=== PATIENT | male | born 1975 | race Caucasian/White ===

== ENCOUNTER 2017-03-25 18:17 | Inpatient (IN) | payer OTHER ==
[~2017-03-25] VITALS: Ht 182.9 cm; Wt 93.3 kg
[2017-03-25 22:24] VITALS: BP 130/72; RESP 16
[2017-03-26] VITALS (9 sets, daily range): BP systolic 99–114; BP diastolic 52–66; PULSE 80–151; RESP 16–20
[2017-03-26] MEDS ORDERED: LORAZEPAM 2 MG INJ IV PRN
[2017-03-26] MEDS ORDERED: ONDANSETRON 4 MG INJ IV PRN
[2017-03-26] MEDS ORDERED: morphine 2 MG INJ ONE (01:23)
[2017-03-26] MEDS: morphine 2 MG INJ IV PRN ×3 (01:30→11:00)
--- NOTE | 2017-03-26 04:30 | HP ---
DATE OF ADMISSION: 03/25/2017 TIME: 11:37 p.m. CHIEF COMPLAINT: Blood in his stool. HISTORY OF PRESENT ILLNESS: Jose is a 41-year-old male, who went to the emergency room at [facility] because of blood in his stool of 3 days' duration. He tells me that he has had this problem on and off for the past 3 years. He has had a colonoscopy before and he has had a complete workup that showed gastric and several small bowel ulcers. He did not use those terms, but from his description it sounds like that is what it is. He says that the last time he had a colonoscopy and then he needed to have an upper endoscopy. He does have a history of heavy alcohol, tobacco, cocaine and methamphetamine use. These episodes started 3 days ago with melanotic stools. As patient has had this before, he tried to treat himself with over-the- counter PPI therapy, but by yesterday he went to the bathroom and was having grossly bloody, watery stools. He states he had about 7 episodes and on the last episode he felt so weak and dizzy he fell off the toilet seat. He actually said, however, that he did not hit his head or lose consciousness. After that, he told his family to take him to the emergency room. He was taken to the emergency room at [facility] where he was stabilized and then transferred to us for further management for insurance reasons. Please note, that patient refused rectal exam but has photos of his bloody stools that show significant rectal bleeding. He has also had right upper quadrant pain and he has had this on and off for many years, which he describes as sharp. He states that is was while this pain was being worked up that he was told that he had a swollen liver. PAST MEDICAL HISTORY: The patient does not take any medications daily, but he has been told in the past that he has hypertension and dyslipidemia but by his report he was not started on any medications. He has also been told in the past that he has a swollen liver and that he needs to quit drinking alcohol. If not, he will develop liver cirrhosis, but he has never been diagnosed with liver cirrhosis. SURGICAL HISTORY: He denies. ALLERGIES: NO KNOWN DRUG ALLERGIES. SOCIAL HISTORY: Patient smokes tobacco and methamphetamine. He snorts cocaine and he drinks a lot of alcohol. FAMILY HISTORY: Noncontributory. REVIEW OF SYSTEMS: Pertinent findings as noted in HPI in a 12- point review of systems. PHYSICAL EXAMINATION: VITAL SIGNS: Temperature 98.0, pulse is 89, respirations 16, blood pressure 132/67, saturations 97 percent on room air GENERAL: Patient is alert, he is oriented. He is in no distress. He is afebrile to touch. HEENT: Head is normocephalic with equal, round, reactive pupils. Mucous membranes are moist. Posterior pharynx is clear of erythema and exudates. There is no scleral jaundice. There is no conjunctival pallor. NECK: Supple without adenopathy or JVD. CHEST: Clear to auscultation with good air entry on both sides. CARDIOVASCULAR: Heart sounds S1 and S2, without added sounds or murmurs. ABDOMEN: He does not have any gross abdominal tenderness on palpation, but intermittently during physical exam, he would develop a niggling ache in his right upper quadrant. Otherwise, his abdomen soft, nondistended, nontender with normoactive bowel sounds. EXTREMITIES: Lower extremities negative for edema. There is no joint swelling or deformity. PSYCHIATRIC: He was calm, cooperative with exam. SKIN: Notable only for multiple tattoos. NEUROLOGIC: He had no focal deficits. No gross focal deficits. LAB VALUES: I reviewed all the imaging, paperwork and lab work sent from [facility] and pertinent findings are as follows: 1. A urine toxicology screen positive for cocaine, methamphetamine and opiates. 2. Unremarkable urinalysis. 3. EKG showing normal sinus rhythm with short SC, with a rate of 98 beats per minute. ASSESSMENT: A 41-year-old male, who presents with 3-day history of melanotic stools that developed into bright red blood per rectum and for the followin. Acute gastrointestinal bleed (recurrent). 2. History of gastrointestinal ulcers. 3. Chronic right upper quadrant pain. Rule out liver pathology. 4. Multiple substance abuse. PLAN: The patient will be admitted to telemetry floor and for stabilization he was started on IV fluid therapy, IV PPI therapy and will undergo serial lab work. The patient does not have a history of varices as far as he knows. We will get a right upper quadrant ultrasound to evaluate his liver and pancreas, and we will also provide supportive care with pain control, and antiemetics as needed. The patient has been counseled on the need to quit substance abuse and it sounds like he is already working on it, we will have the family welfare social work professor visit and provide additional resources if necessary. We will also continue to reinforce the need for cessation while in-house. The patient will be also be seen by GI tomorrow and it sounds like he would benefit from endoscopy. We will defer to GI for timing. This plan has been discussed with patient and his family in detail. Questions have been answered. Prophylaxis: PPI therapy, as well as SCDs. Dictated By: Lizzy Wilhelm MD /danielle/graciela /Document#: [id number]
[2017-03-26] MEDS ORDERED: PANTOPRAZOLE 40 MG INJ ONE (06:37)
[2017-03-26 08:03] LABS: BASOPHILS % 0.4 % (0.0-2.0); EOSINOPHILS # 0.1 10^3/ul (0.0-0.5); EOSINOPHILS % 1.7 % (0.0-7.0); HEMATOCRIT 25.4 % (42.0-52.0); HEMOGLOBIN 8.8 g/dl (14.0-18.0); LYMPHOCYTES # 2.3 10^3/ul (0.8-2.9); LYMPHOCYTES % 33.3 % (15.0-51.0); MEAN CORPUSCULAR HEMOGLOBIN 33.7 pg (29.0-33.0); MEAN CORPUSCULAR HGB CONC 34.6 g/dl (32.0-37.0); MEAN CORPUSCULAR VOLUME 97.3 fl (82.0-101.0); MONOCYTE # 0.7 10^3/ul (0.3-0.9); MONOCYTES % 9.5 % (0.0-11.0); NEUTROPHILS % 54.8 % (39.0-77.0); PLATELET COUNT 250 10^3/UL (140-415); RED BLOOD COUNT 2.61 10^6/ul (4.70-6.10); RED CELL DISTRIBUTION WIDTH 13.1 % (11.5-14.5)
[2017-03-26 08:21] LABS: INR 0.99; PARTIAL THROMBOPLASTIN TIME 26.3 Sec (25.0-35.0); PROTIME 13.1 Sec (12.2-14.2)
--- NOTE | 2017-03-26 08:21 | RADRPT ---
PROCEDURE: US Abdomen (right upper quadrant). CLINICAL INDICATION: Right upper quadrant abdomen pain. TECHNIQUE: Multiple real-time longitudinal and transverse images of the right upper quadrant of th e abdomen were acquired utilizing a curved array transducer. Images were reviewed on a high-resoluti on PACS workstation. COMPARISON: None FINDINGS: This is a limited study as the patient is not n.p.o. and the patient was unable to fully cooperate. The liver is normal in size and normal in echogenicity. There is no focal hepatic lesion. The gallbladder is contracted. The bile ducts are normal with the common bile duct measuring 3.0 mm in diameter. The pancreas is not visualized due to overlying bowel gas. No free fluid is present. The right kidney measures 9.7 cm. There is normal echogenicity of the right kidney. There is no p erinephric fluid collection. No hydronephrosis, mass, or calculus is seen. IMPRESSION: 1. Limited study. 2. Contracted gallbladder. 3. Pancreas not visualized. 4. Otherwise unremarkable right upper quadrant abdomen ultrasound. RPTAT: QQ .Evangelista Pereira MD, MD Date Time Electronically viewed and signed by .Evangelista Pereira MD, on 03/26/2017 08:21 .R/
[2017-03-26 08:26] LABS: ALBUMIN 2.6 g/dl (3.3-4.9); ALBUMIN/GLOBULIN RATIO 1.13; CALCIUM 8.3 mg/dl (8.4-10.2); CREATININE 0.89 mg/dl (0.61-1.24); MAGNESIUM 1.9 mg/dl (1.7-2.5); POTASSIUM 4.4 mmol/L (3.5-5.1); TOTAL PROTEIN 4.9 g/dl (6.1-8.1)
[2017-03-26] MEDS: DOCUSATE SODIUM 100 MG CAP PO SCH ×2 (10:58→21:00)
[2017-03-26] MEDS: SOD CHLORIDE 0.9% 1,000 ML IV SCH ×2 (10:59→21:12)
[2017-03-26] MEDS: MULTIVITAMINS 10 ML, THIAMINE 100 MG, FOLIC ACID 1 MG in SOD CHLORIDE 0.9% 1,000 ML IV SCH (12:00)
[2017-03-26] MEDS ORDERED: PANTOPRAZOLE (EC) 40 MG TAB PO ONE (14:00)
--- NOTE | 2017-03-26 14:04 | PN ---
Date/Time of Note Date/Time of Note DATE: 03/26/17 TIME: 14:01 Assessment/Plan VTE Prophylaxis VTE Prophylaxis Intervention: anti-embolic stocking Assessment/Plan Problems: (1) GI bleed Status: Acute Comment: The patient denies any known history of Crohn's disease or ulcerative colitis. His last scoping was performed at [facility] however he has no idea who the physician was. GI consult is ordered. We will follow his H&H. 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 His addiction is going to actually be a terminal illness (3) Chemical dependency Status: Chronic Comment: As above his addiction issues are very likely to be a terminal illness Subjective 24 Hr Interval Summary Free Text/Dictation Patient reports that he is feeling okay. He reports he is consuming 12-18 units of alcohol per day. His last cocktail was at 2 AM this morning Constitutional: no complaints Respiratory: no complaints Cardiovascular: no complaints Gastrointestinal: blood Exam/Review of Systems Vital Signs Vitals Vital Signs Date Time Temp Pulse Resp B/P Pulse Ox O2 Delivery O2 Flow Rate FiO2 03/26/17 12:00 80 03/26/17 12:00 98.0 18 108/53 98 Intake and Output 03/25/17 03/25/17 03/26/17 15:00 23:00 07:00 Intake Total 600 ml Balance 600 ml Exam Constitutional: alert, oriented Respiratory: clear to auscultation, normal air movement Cardiovascular: nl pulses, regular rate and rhythm Results Result Diagram: 03/26/17 0633 03/26/17 0633 Results 24 hrs Laboratory Tests Test 03/26/17 04:00 03/26/17 06:33 Stool Occult Blood POSITIVE White Blood Count 7.0 Red Blood Count 2.61 L Hemoglobin 8.8 L Hematocrit 25.4 L Mean Corpuscular Volume 97.3 Mean Corpuscular Hemoglobin 33.7 H Mean Corpuscular Hemoglobin Concent 34.6 Red Cell Distribution Width 13.1 Platelet Count 250 Mean Platelet Volume 10.0 Neutrophils % 54.8 Lymphocytes % 33.3 Monocytes % 9.5 Eosinophils % 1.7 Basophils % 0.4 Nucleated Red Blood Cells % 0.0 Neutrophils # (Manual) 3.8 Lymphocytes # 2.3 Monocytes # 0.7 Eosinophils # 0.1 Basophils # 0.0 Nucleated Red Blood Cells # 0.0 Prothrombin Time 13.1 Prothrombin Time Ratio 1.0 INR International Normalized Ratio 0.99 Activated Partial Thromboplast Time 26.3 Sodium Level 137 Potassium Level 4.4 Chloride Level 103 Carbon Dioxide Level 27 Anion Gap 11 Blood Urea Nitrogen 27 H Creatinine 0.89 Glucose Level 91 Calcium Level 8.3 L Phosphorus Level 4.0 Magnesium Level 1.9 Total Bilirubin 0.0 L Direct Bilirubin 0.00 Indirect Bilirubin 0.0 Aspartate Amino Transf (AST/SGOT) 40 Alanine Aminotransferase (ALT/SGPT) 31 Alkaline Phosphatase 56 Total Protein 4.9 L Albumin 2.6 L Globulin 2.30 Albumin/Globulin Ratio 1.13 Medications Medications Current Medications Morphine Sulfate (morphine) 2 mg Q4H PRN IV PAIN Last administered on 01:30; Admin Dose 2 MG; Start 03/25/17 at 23:30 Docusate Sodium 100 mg 100 mg BID PO Last administered on 03/26/17 10:58; Admin Dose 100 MG; Start 03/26/17 at 10:30 Multivitamins 10 ml/Thiamine HCl 100 mg/Folic Acid 1 mg/Sodium Chloride 1,011.2 ml @ 125 mls/ hr Q24H IV ; Start 03/26/17 at 12:00; Stop 03/28/17 at 20:06 Sodium Chloride (NS) 1,000 ml @ 100 mls/hr Q10H IV Last administered on 10:59; Admin Dose 100 MLS/HR; Start 03/26/17 at 11:00 Lorazepam (Ativan) 1 mg Q8H PRN IV AGITATION; Start 03/26/17 at 00:00 Ondansetron HCl (Zofran Inj) 4 mg Q6H PRN IV NAUSEA AND/OR VOMITING; Start at 00:00 CELSO KENDALL MD Mar 26, 2017 14:04
--- NOTE | 2017-03-26 17:21 | CONS ---
Date/Time of Note Date/Time of Note DATE: 03/26/17 TIME: 17:09 Assessment/Plan Assessment/Plan Additional Assessment/Plan Assessment * Hematochezia/anemia R/O lower GI bleed vs upper GI bleed T/O diverticulosis vs av malformation vs others * Alcoholism Plan * Monitor hemoglobin and hematocrit daily and transfuse per protocol * PPI * Possible colonoscopy and EGD tuesday will discuss with patient tomorrow per girlfriend * Soft diet * Omeprazole 40 mg BID * case discussed with DR Pro * Further orders will depend on clinical course Consultation Date/Type/Reason Admit Date/Time Mar 25, 2017 at 21:58 Date of Consultation: Mar 26, 2017 Type of Consultation: gastroenterology Reason for Consultation lower gi bleed Referring Provider: CELSO KENDALL MD Hx of Present Illness 41 jewel old male who was transferred to our institution from [facility] complaining of lower GI bleed.Present condition apparently started 3 day prior to transfer as hematocheizia on and off minimal in amount gradually having large amount of hematochezia and body weakness prompted consult and subsequent transfer to [facility] because of insurance issues.The girlfriend also claimed that he had endoscopy and colonoscopy last year at [facility] where he was giagnosed with gastri ilcers.Patient is also a heavy alcoholic drinker per girlfriend.Patient is asleep and comfortable Constitutional: no complaints Eyes: no complaints ENT: no complaints Respiratory: no complaints Cardiovascular: no complaints Gastrointestinal: blood Genitourinary: no complaints Musculoskeletal: no complaints Skin: no complaints Neurologic: no complaints Endocrine: no complaints Lymphatic: no complaints Psychological: nl mood/affect, no complaints Immunologic: no complaints Past Medical History Medical History: other (gastric ulcers) Past Surgical History Past Surgical Hx: endoscopy Family History Significant Family History: no pertinent family hx Social History Alcohol Use: heavy Exam/Review of Systems Vital Signs Vitals Vital Signs Date Time Temp Pulse Resp B/P Pulse Ox O2 Delivery O2 Flow Rate FiO2 03/26/17 16:00 100 03/26/17 15:45 99.0 17 99/60 93 Intake and Output 03/25/17 03/25/17 03/26/17 15:00 23:00 07:00 Intake Total 600 ml Balance 600 ml Exam Constitutional: alert, oriented, well developed Psych: nl mood/affect, no complaints Head: atraumatic, normocephalic Eyes: EOMI, PERRL, nl conjunctiva, nl lids, nl sclera ENMT: nl external ears & nose, nl lips & teeth, nl nasal mucosa & septum Neck: non-tender, supple Respiratory: clear to auscultation, normal air movement Cardiovascular: nl pulses, regular rate and rhythm Gastrointestinal: nl liver, spleen, non-tender, soft Musculoskeletal: nl extremities to inspection, nl gait and stance Extremities: normal pulses Neurological: MMD [employer] II-XII intact, nl mental status, nl speech, nl strength Skin: nl turgor, No rash or lesions Lymph: nl lymph nodes Results Result Diagram: 03/26/1763203/26/17 06 Results 24 hrs Laboratory Tests Test 03/26/17 04:00 03/26/17 06:33 Stool Occult Blood POSITIVE White Blood Count 7.0 Red Blood Count 2.61 L Hemoglobin 8.8 L Hematocrit 25.4 L Mean Corpuscular Volume 97.3 Mean Corpuscular Hemoglobin 33.7 H Mean Corpuscular Hemoglobin Concent 34.6 Red Cell Distribution Width 13.1 Platelet Count 250 Mean Platelet Volume 10.0 Neutrophils % 54.8 Lymphocytes % 33.3 Monocytes % 9.5 Eosinophils % 1.7 Basophils % 0.4 Nucleated Red Blood Cells % 0.0 Neutrophils # (Manual) 3.8 Lymphocytes # 2.3 Monocytes # 0.7 Eosinophils # 0.1 Basophils # 0.0 Nucleated Red Blood Cells # 0.0 Prothrombin Time 13.1 Prothrombin Time Ratio 1.0 INR International Normalized Ratio 0.99 Activated Partial Thromboplast Time 26.3 Sodium Level 137 Potassium Level 4.4 Chloride Level 103 Carbon Dioxide Level 27 Anion Gap 11 Blood Urea Nitrogen 27 H Creatinine 0.89 Glucose Level 91 Calcium Level 8.3 L Phosphorus Level 4.0 Magnesium Level 1.9 Total Bilirubin 0.0 L Direct Bilirubin 0.00 Indirect Bilirubin 0.0 Aspartate Amino Transf (AST/SGOT) 40 Alanine Aminotransferase (ALT/SGPT) 31 Alkaline Phosphatase 56 Total Protein 4.9 L Albumin 2.6 L Globulin 2.30 Albumin/Globulin Ratio 1.13 Medications Medications Current Medications Morphine Sulfate (morphine) 2 mg Q4H PRN IV PAIN Last administered on t 01:30; Admin Dose 2 MG; Start 03/25/17 at 23:30 Docusate Sodium 100 mg 100 mg BID PO Last administered on 03/26/17 10:58; Admin Dose 100 MG; Start 03/26/17 at 10:30 Multivitamins 10 ml/Thiamine HCl 100 mg/Folic Acid 1 mg/Sodium Chloride 1,011.2 ml @ 125 mls/ hr Q24H IV ; Start 03/26/17 at 12:00; Stop 03/28/17 at 20:06 Sodium Chloride (NS) 1,000 ml @ 100 mls/hr Q10H IV Last administered on 10:59; Admin Dose 100 MLS/HR; Start 03/26/17 at 11:00 Lorazepam (Ativan) 1 mg Q8H PRN IV AGITATION; Start 03/26/17 at 00:00 Ondansetron HCl (Zofran Inj) 4 mg Q6H PRN IV NAUSEA AND/OR VOMITING; Start at 00:00 Thiamine HCl (Vitamin B1) 100 mg DAILY PO ; Start 03/27/17 at 09:00 Chlordiazepoxide (Librium) 25 mg TID PO ; Start 03/26/17 at 21:00; Stop at 20:59 Pantoprazole (Protonix Tab) 40 mg DAILY@06 PO ; Start 03/27/17 at 06:00 ADELITA JAMES NP Mar 26, 2017 17:21
[2017-03-26] MEDS: CHLORDIAZEPOXIDE 25 MG CAP PO SCH (21:12)
[2017-03-27] VITALS (13 sets, daily range): BP systolic 99–117; BP diastolic 59–94; PULSE 73–104; RESP 16–20
[2017-03-27] MEDS: PANTOPRAZOLE (EC) 40 MG TAB PO SCH (05:37)
[2017-03-27] MEDS: MULTIVITAMINS 10 ML, THIAMINE 100 MG, FOLIC ACID 1 MG in SOD CHLORIDE 0.9% 1,000 ML IV SCH (08:48)
[2017-03-27] MEDS: DOCUSATE SODIUM 100 MG CAP PO SCH ×2 (08:49→21:17)
[2017-03-27] MEDS: THIAMINE 100 MG TAB PO SCH (08:49)
[2017-03-27] MEDS: CHLORDIAZEPOXIDE 25 MG CAP PO SCH ×3 (08:49→21:17)
[2017-03-27 08:51] LABS: BASOPHILS % 0.6 % (0.0-2.0); EOSINOPHILS # 0.1 10^3/ul (0.0-0.5); HEMATOCRIT 23.6 % (42.0-52.0); HEMOGLOBIN 7.8 g/dl (14.0-18.0); LYMPHOCYTES # 2.3 10^3/ul (0.8-2.9); LYMPHOCYTES % 33.6 % (15.0-51.0); MEAN CORPUSCULAR HEMOGLOBIN 32.5 pg (29.0-33.0); MEAN CORPUSCULAR HGB CONC 33.1 g/dl (32.0-37.0); MEAN CORPUSCULAR VOLUME 98.3 fl (82.0-101.0); MONOCYTE # 0.6 10^3/ul (0.3-0.9); MONOCYTES % 9.1 % (0.0-11.0); NEUTROPHILS % 54.4 % (39.0-77.0); PLATELET COUNT 223 10^3/UL (140-415); RED CELL DISTRIBUTION WIDTH 13.5 % (11.5-14.5); WHITE BLOOD COUNT 6.9 10^3/ul (4.8-10.8)
[2017-03-27 09:26] LABS: ALBUMIN 2.5 g/dl (3.3-4.9); ALBUMIN/GLOBULIN RATIO 1.08; CALCIUM 7.9 mg/dl (8.4-10.2); CREATININE 0.9 mg/dl (0.61-1.24); POTASSIUM 4.1 mmol/L (3.5-5.1); TOTAL PROTEIN 4.8 g/dl (6.1-8.1)
--- NOTE | 2017-03-27 09:49 | PN ---
Date/Time of Note Date/Time of Note DATE: 03/27/17 TIME: 09:45 Assessment/Plan VTE Prophylaxis VTE Prophylaxis Intervention: SCD's Lines/Catheters IV Catheter Type (from Nrs): Peripheral IV Assessment/Plan Assessment/Plan Assessment * Hematochezia/anemia R/O lower GI bleed vs upper GI bleed R/O Bleeding esophageal varices vs ulcers vs diverticulosis vs others * Alcoholism Plan * Monitor hemoglobin and hematocrit daily and transfuse per protocol * PPI * EGD and colonoscopy Tuesday risks and benefit discuss with patient agreed with the procedure * NPO * Omeprazole 40 mg BID * case discussed with DR Pro * Further orders will depend on clinical course Subjective 24 Hr Interval Summary Free Text/Dictation * course reviewed with RN * Patient seen and examined * No untoward events overnight Exam/Review of Systems Vital Signs Vitals Vital Signs Date Time Temp Pulse Resp B/P Pulse Ox O2 Delivery O2 Flow Rate FiO2 03/27/17 08:03 98.1 77 18 113/70 97 03/27/17 04:00 Room Air Intake and Output 03/26/17 03/26/17 03/27/17 15:00 23:00 07:00 Intake Total 500 ml 1380 ml 620 ml Balance 500 ml 1380 ml 620 ml Exam Constitutional: alert, oriented Neck: non-tender, supple Respiratory: clear to auscultation, normal air movement Cardiovascular: nl pulses, regular rate and rhythm Gastrointestinal: non-tender, soft Neurological: nl speech, nl strength Skin: nl turgor Results Result Diagram: 03/27/17 0706 03/27/17 0706 Results 24 hrs Laboratory Tests Test 03/27/17 07:06 White Blood Count 6.9 Red Blood Count 2.40 L Hemoglobin 7.8 L Hematocrit 23.6 L Mean Corpuscular Volume 98.3 Mean Corpuscular Hemoglobin 32.5 Mean Corpuscular Hemoglobin Concent 33.1 Red Cell Distribution Width 13.5 Platelet Count 223 Mean Platelet Volume 10.0 Neutrophils % 54.4 Lymphocytes % 33.6 Monocytes % 9.1 Eosinophils % 2.0 Basophils % 0.6 Nucleated Red Blood Cells % 0.0 Neutrophils # (Manual) 3.8 Lymphocytes # 2.3 Monocytes # 0.6 Eosinophils # 0.1 Basophils # 0.0 Nucleated Red Blood Cells # 0.0 Sodium Level 142 Potassium Level 4.1 Chloride Level 109 Carbon Dioxide Level 25 Anion Gap 12 Blood Urea Nitrogen 12 # Creatinine 0.90 Glucose Level 91 Calcium Level 7.9 L Total Bilirubin 0.0 L Direct Bilirubin 0.00 Indirect Bilirubin 0.0 Aspartate Amino Transf (AST/SGOT) 18 # Alanine Aminotransferase (ALT/SGPT) 27 Alkaline Phosphatase 53 Total Protein 4.8 L Albumin 2.5 L Globulin 2.30 Albumin/Globulin Ratio 1.08 Medications Medications Current Medications Morphine Sulfate (morphine) 2 mg Q4H PRN IV PAIN Last administered on 01:30; Admin Dose 2 MG; Start 03/25/17 at 23:30 Docusate Sodium 100 mg 100 mg BID PO Last administered on 03/27/17 08:49; Admin Dose 100 MG; Start 03/26/17 at 10:30 Multivitamins 10 ml/Thiamine HCl 100 mg/Folic Acid 1 mg/Sodium Chloride 1,011.2 ml @ 125 mls/ hr Q24H IV Last administered on 03/27/17 08:48; Admin Dose 125 MLS/HR; Start 03/26/17 at 12:00; Stop 03/28/17 at 20:06 Sodium Chloride (NS) 1,000 ml @ 100 mls/hr Q10H IV Last administered on 21:12; Admin Dose 100 MLS/HR; Start 03/26/17 at 11:00 Lorazepam (Ativan) 1 mg Q8H PRN IV AGITATION; Start 03/26/17 at 00:00 Ondansetron HCl (Zofran Inj) 4 mg Q6H PRN IV NAUSEA AND/OR VOMITING; Start at 00:00 Thiamine HCl (Vitamin B1) 100 mg DAILY PO Last administered on 03/27/17 08:49 ; Admin Dose 100 MG; Start 03/27/17 at 09:00 Chlordiazepoxide (Librium) 25 mg TID PO Last administered on 03/27/17 08:49; Admin Dose 25 MG; Start 03/26/17 at 21:00; Stop 03/27/17 at 20:59 Pantoprazole (Protonix Tab) 40 mg DAILY@06 PO Last administered on 03/27/17 05 :37; Admin Dose 40 MG; Start 03/27/17 at 06:00 ADELITA JAMES NP Mar 27, 2017 09:49
[2017-03-27] MEDS ORDERED: BISACODYL (EC) 5 MG TAB PO ONE (10:00)
--- NOTE | 2017-03-27 11:34 | PN ---
Date/Time of Note Date/Time of Note DATE: 03/27/17 TIME: 11:32 Assessment/Plan VTE Prophylaxis VTE Prophylaxis Intervention: other Lines/Catheters [facility] Peripheral IV Assessment/Plan Problems: (1) Alcoholism /alcohol abuse Status: Chronic Comment: His ultrasound of his liver is pleasantly unremarkable. We will continue him with Librium for another 24 hours to protect from withdrawal he has had thiamine and banana bags. (2) Chemical dependency Status: Chronic Comment: Strongly counseled again. Regrettably I do not feel that were going to get long-term compliance (3) GI bleed Status: Acute Comment: His H&H has come down but is not at a point where I would transfuse yet. He is to have GI procedures tomorrow Qualifiers: GI bleed type/associated pathology: anorectal hemorrhage Qualified Code: K62.5 - Gastrointestinal hemorrhage associated with anorectal source Subjective 24 Hr Interval Summary Free Text/Dictation He reports he is feeling better without symptoms of withdrawal. He denies any further bleeding which is what the nurses inform me of as well Constitutional: no complaints Respiratory: no complaints Cardiovascular: no complaints Gastrointestinal: no complaints Genitourinary: no complaints Neurologic: no complaints Exam/Review of Systems Vital Signs Vitals Vital Signs Date Time Temp Pulse Resp B/P Pulse Ox O2 Delivery O2 Flow Rate FiO2 03/27/17 08:03 98.1 77 18 113/70 97 03/27/17 04:00 Room Air Intake and Output 03/26/17 03/26/17 03/27/17 14:59 22:59 06:59 Intake Total 500 ml 1380 ml 620 ml Balance 500 ml 1380 ml 620 ml Exam Constitutional: alert, oriented (Person place time and situation) Neck: non-tender, supple Respiratory: clear to auscultation, normal air movement Cardiovascular: nl pulses, regular rate and rhythm Gastrointestinal: nl liver, spleen, non-tender, soft Neurological: other (Tremor) Results Result Diagram: 03/27/17 0706 03/27/17 0706 Results 24 hrs Laboratory Tests Test 03/27/17 07:06 White Blood Count 6.9 Red Blood Count 2.40 L Hemoglobin 7.8 L Hematocrit 23.6 L Mean Corpuscular Volume 98.3 Mean Corpuscular Hemoglobin 32.5 Mean Corpuscular Hemoglobin Concent 33.1 Red Cell Distribution Width 13.5 Platelet Count 223 Mean Platelet Volume 10.0 Neutrophils % 54.4 Lymphocytes % 33.6 Monocytes % 9.1 Eosinophils % 2.0 Basophils % 0.6 Nucleated Red Blood Cells % 0.0 Neutrophils # (Manual) 3.8 Lymphocytes # 2.3 Monocytes # 0.6 Eosinophils # 0.1 Basophils # 0.0 Nucleated Red Blood Cells # 0.0 Sodium Level 142 Potassium Level 4.1 Chloride Level 109 Carbon Dioxide Level 25 Anion Gap 12 Blood Urea Nitrogen 12 # Creatinine 0.90 Glucose Level 91 Calcium Level 7.9 L Total Bilirubin 0.0 L Direct Bilirubin 0.00 Indirect Bilirubin 0.0 Aspartate Amino Transf (AST/SGOT) 18 # Alanine Aminotransferase (ALT/SGPT) 27 Alkaline Phosphatase 53 Total Protein 4.8 L Albumin 2.5 L Globulin 2.30 Albumin/Globulin Ratio 1.08 Medications Medications Current Medications Morphine Sulfate (morphine) 2 mg Q4H PRN IV PAIN Last administered on 01:30; Admin Dose 2 MG; Start 03/25/17 at 23:30 Docusate Sodium 100 mg 100 mg BID PO Last administered on 03/27/17 08:49; Admin Dose 100 MG; Start 03/26/17 at 10:30 Multivitamins 10 ml/Thiamine HCl 100 mg/Folic Acid 1 mg/Sodium Chloride 1,011.2 ml @ 125 mls/ hr Q24H IV Last administered on 03/27/17 08:48; Admin Dose 125 MLS/HR; Start 03/26/17 at 12:00; Stop 03/28/17 at 20:06 Sodium Chloride (NS) 1,000 ml @ 100 mls/hr Q10H IV Last administered on 21:12; Admin Dose 100 MLS/HR; Start 03/26/17 at 11:00 Lorazepam (Ativan) 1 mg Q8H PRN IV AGITATION; Start 03/26/17 at 00:00 Ondansetron HCl (Zofran Inj) 4 mg Q6H PRN IV NAUSEA AND/OR VOMITING; Start at 00:00 Thiamine HCl (Vitamin B1) 100 mg DAILY PO Last administered on 03/27/17 08:49 ; Admin Dose 100 MG; Start 03/27/17 at 09:00 Chlordiazepoxide (Librium) 25 mg TID PO Last administered on 03/27/17 08:49; Admin Dose 25 MG; Start 03/26/17 at 21:00; Stop 03/27/17 at 20:59 Pantoprazole (Protonix Tab) 40 mg DAILY@06 PO Last administered on 03/27/17 05 :37; Admin Dose 40 MG; Start 03/27/17 at 06:00 Magnesium Citrate (Citroma) 300 ml ONCE ONCE PO ; Start 03/27/17 at 17:30; Stop 03/27/17 at 17:31 Polyethylene Glycol (Miralax) 119 gm ONCE ONCE PO ; Start 03/27/17 at 18:30; Stop 03/27/17 at 18:31 CELSO KENDALL MD Mar 27, 2017 11:34
[2017-03-27 11:49] LABS: IRON 38 ug/dl (35-150)
[2017-03-27 11:59] LABS: TOTAL IRON BINDING CAPACITY 304 ug/dl (241-421)
[2017-03-27] MEDS: SOD CHLORIDE 0.9% 1,000 ML IV SCH ×2 (17:00→17:19)
[2017-03-27] MEDS ORDERED: MAGNESIUM CITRATE 300 ML BTL PO ONE (17:30)
[2017-03-27] MEDS ORDERED: POLYETHYLENE GLYCOL 3350 119 GM POWDER PO ONE (18:30)
[2017-03-28] VITALS (17 sets, daily range): BP systolic 94–132; BP diastolic 48–67; PULSE 75–105; RESP 17–41
[2017-03-28] MEDS: SOD CHLORIDE 0.9% 1,000 ML IV SCH ×3 (02:43→23:08)
[2017-03-28] MEDS: PANTOPRAZOLE (EC) 40 MG TAB PO SCH ×2 (05:59→20:53)
[2017-03-28] MEDS ORDERED: POLYETHYLENE GLYCOL 3350 119 GM POWDER PO ONE (06:00)
[2017-03-28 07:22] LABS: ABNORMAL IP MESSAGE 1; HEMATOCRIT 20.4 % (42.0-52.0); MEAN CORPUSCULAR HGB CONC 33.8 g/dl (32.0-37.0); MEAN CORPUSCULAR VOLUME 97.6 fl (82.0-101.0); MEAN PLATELET VOLUME 9.9 fl (7.4-10.4); PLATELET COUNT 230 10^3/UL (140-415); POSITIVE DIFF @See below; RED BLOOD COUNT 2.09 10^6/ul (4.70-6.10); RED CELL DISTRIBUTION WIDTH 13.5 % (11.5-14.5); WHITE BLOOD COUNT 7.2 10^3/ul (4.8-10.8)
[2017-03-28 07:44] LABS: ALBUMIN 2.5 g/dl (3.3-4.9); ALBUMIN/GLOBULIN RATIO 1.08; CALCIUM 8.1 mg/dl (8.4-10.2); CREATININE 0.9 mg/dl (0.61-1.24); POTASSIUM 3.7 mmol/L (3.5-5.1); TOTAL PROTEIN 4.8 g/dl (6.1-8.1)
[2017-03-28 07:48] LABS: HEMOGLOBIN 6.9 g/dl (14.0-18.0)
[2017-03-28] MEDS ORDERED: BISACODYL (EC) 5 MG TAB PO ONE (08:00)
[2017-03-28] MEDS ORDERED: SOD CHLORIDE 0.9% 250 ML IV* ONE (08:00)
[2017-03-28] MEDS: CHLORDIAZEPOXIDE 25 MG CAP PO SCH ×2 (08:58→12:02)
[2017-03-28] MEDS: DOCUSATE SODIUM 100 MG CAP PO SCH ×2 (08:58→20:53)
[2017-03-28] MEDS: THIAMINE 100 MG TAB PO SCH (08:58)
--- NOTE | 2017-03-28 10:07 | PN ---
Date/Time of Note Date/Time of Note DATE: 03/28/17 TIME: 10:07 Assessment/Plan Lines/Catheters IV Catheter Type (from Nrs): Saline Lock Exam/Review of Systems Vital Signs Vitals Vital Signs Date Time Temp Pulse Resp B/P Pulse Ox O2 Delivery O2 Flow Rate FiO2 03/28/17 08:43 76 03/28/17 07:42 98.1 18 121/59 99 03/27/17 04:00 Room Air Intake and Output 03/27/17 03/27/17 03/28/17 15:00 23:00 07:00 Intake Total 2400 ml 550 ml Balance 2400 ml 550 ml Results Result Diagram: 03/28/17 0625 03/28/17 0625 Results 24 hrs Laboratory Tests Test 03/28/17 06:25 White Blood Count 7.2 Red Blood Count 2.09 L Hemoglobin 6.9 *L Hematocrit 20.4 L Mean Corpuscular Volume 97.6 Mean Corpuscular Hemoglobin 33.0 Mean Corpuscular Hemoglobin Concent 33.8 Red Cell Distribution Width 13.5 Platelet Count 230 Mean Platelet Volume 9.9 Neutrophils % Lymphocytes % Monocytes % Eosinophils % Basophils % Nucleated Red Blood Cells % 0.0 Neutrophils # (Manual) 4.0 Lymphocytes # Monocytes # Eosinophils # Basophils # Nucleated Red Blood Cells # Sodium Level 138 Potassium Level 3.7 Chloride Level 106 Carbon Dioxide Level 28 Anion Gap 8 Blood Urea Nitrogen 15 Creatinine 0.90 Glucose Level 103 Calcium Level 8.1 L Total Bilirubin 0.0 L Direct Bilirubin 0.00 Indirect Bilirubin 0.0 Aspartate Amino Transf (AST/SGOT) 21 Alanine Aminotransferase (ALT/SGPT) 29 Alkaline Phosphatase 55 Total Protein 4.8 L Albumin 2.5 L Globulin 2.30 Albumin/Globulin Ratio 1.08 Medications Medications Current Medications Morphine Sulfate (morphine) 2 mg Q4H PRN IV PAIN Last administered on 01:30; Admin Dose 2 MG; Start 03/25/17 at 23:30 Docusate Sodium 100 mg 100 mg BID PO Last administered on 03/28/17 08:58; Admin Dose 100 MG; Start 03/26/17 at 10:30 Multivitamins 10 ml/Thiamine HCl 100 mg/Folic Acid 1 mg/Sodium Chloride 1,011.2 ml @ 125 mls/ hr Q24H IV Last administered on 03/27/17 08:48; Admin Dose 125 MLS/HR; Start 03/26/17 at 12:00; Stop 03/28/17 at 20:06 Sodium Chloride (NS) 1,000 ml @ 100 mls/hr Q10H IV Last administered on 02:43; Admin Dose 100 MLS/HR; Start 03/26/17 at 11:00 Lorazepam (Ativan) 1 mg Q8H PRN IV AGITATION; Start 03/26/17 at 00:00 Ondansetron HCl (Zofran Inj) 4 mg Q6H PRN IV NAUSEA AND/OR VOMITING; Start at 00:00 Thiamine HCl (Vitamin B1) 100 mg DAILY PO Last administered on 03/28/17 08:58 ; Admin Dose 100 MG; Start 03/27/17 at 09:00 Chlordiazepoxide (Librium) 25 mg TID PO Last administered on 03/28/17 08:58; Admin Dose 25 MG; Start 03/26/17 at 21:00; Stop 03/28/17 at 20:59 Pantoprazole (Protonix Tab) 40 mg DAILY@06 PO Last administered on 03/28/17 05 :59; Admin Dose 40 MG; Start 03/27/17 at 06:00 JORGE VAZQUEZ NP Mar 28, 2017 10:07
[2017-03-28 10:32] LABS: ANISOCYTOSIS 1+ (0-0); BASOPHILS % (M) 1 % (0-2); EOSINOPHILS % (M) 5 % (0-7); GIANT THROMBO% (M) 2 % (0-0); METAMYELOCYTES %M 1 % (0-0); MONOCYTES % (M) 2 % (0-11); MYELOCYTES % (M) 1 % (0-0); PLATELET ESTIMATE NORMAL; REACTIVE LYMPHOCYTES% (M) 2 % (0-0)
--- NOTE | 2017-03-28 11:16 | PN ---
Date/Time of Note Date/Time of Note DATE: 03/28/17 TIME: 11:02 Assessment/Plan VTE Prophylaxis VTE Prophylaxis Intervention: SCD's Lines/Catheters IV [facility] (from [facility] Saline Lock Assessment/Plan Chief Complaint/Hosp Course 1. Acute anemia. Today hemoglobin 6.9.Positive stool OB. -2 units PRBC has been ordered. -GI evaluation appreciated. Patient is for endoscopy and colonoscopy evaluation today. -Monitor H&H closely and transfuse as indicated. -Continue Protonix 2. Alcoholism /alcohol abuse -Cessation advised 3. Meth/cocaine abuse -Cessation advised Plan: Follow-up with EGD/colonoscopy findings. Case discussed with Dr. Mata Problems: Subjective 24 Hr Interval Summary Free Text/Dictation No acute overnight episodes. N.p.o. for endoscopy and colonoscopy today. Exam/Review of Systems Vital Signs Vitals Vital Signs Date Time Temp Pulse Resp B/P Pulse Ox O2 Delivery O2 Flow Rate FiO2 03/28/17 08:43 76 03/28/17 07:42 98.1 18 121/59 99 03/27/17 04:00 Room Air Intake and Output 03/27/17 03/27/17 03/28/17 15:00 23:00 07:00 Intake Total 2400 ml 550 ml Balance 2400 ml 550 ml Exam General: Well developed,adequately built, not in any acute distress . HEENT: Normocephalic, Atraumatic, No laceration or hematoma; Eyes: PEERL, Conjunctiva clear, Anicteric sclera Neck: Supple without any lymphadenopathy, nontender, no JVD, no carotid bruits, trachea midline, no thyromegaly Cardiac: S1, S2 auscultated, regular rhythm and rate, no mumurs or gallop Pulmonary: Normal respiratory effort. Chest clear to auscultation bilaterally, no adventitious breath sounds GI: Abdomen normal to inspection. Soft, non tender, non- distended, no masses, no rebound tenderness or guarding. Bowel sounds active on all four quadrants Genitourinary: Deferred Extremities: No cyanosis, clubbing, or edema. Pulses [2+] bilaterally. Full ROM on all four extremities. No focal weakness appreciated. Neurologic: Alert to person, place, time, and situation. Affect appropriate, intact sensation. Skin: With multiple tattoos. Clean,dry, and intact. No ecchymosis, no rashes, or lesions Results Result Diagram: 03/28/17 0625 03/28/17 0625 Results 24 hrs Laboratory Tests Test 03/28/17 06:25 White Blood Count 7.2 Red Blood Count 2.09 L Hemoglobin 6.9 *L Hematocrit 20.4 L Mean Corpuscular Volume 97.6 Mean Corpuscular Hemoglobin 33.0 Mean Corpuscular Hemoglobin Concent 33.8 Red Cell Distribution Width 13.5 Platelet Count 230 Mean Platelet Volume 9.9 Neutrophils % Segmented Neutrophils % (Manual) 66 Lymphocytes % Lymphocytes % (Manual) 22 Reactive Lymphocytes % (Manual) 2 H Monocytes % Monocytes % (Manual) 2 Eosinophils % Eosinophils % (Manual) 5 Basophils % Basophils % (Manual) 1 Metamyelocytes % (manual) 1 H Myelocytes % (Manual) 1 H Nucleated Red Blood Cells % 0.0 Neutrophils # (Manual) Absolute Lymphocytes (Manual) 1.5 Lymphocytes # Reactive Lymphocytes # 0.1 H Monocytes # Absolute Monocytes (Manual) 0.1 L Eosinophils # Basophils # Basophils # (Manual) 0.0 Metamyelocytes # 0.0 Myelocytes # 0.0 Nucleated Red Blood Cells # Thrombocytosis 2 H Platelet Estimate NORMAL Anisocytosis 1+ Macrocytosis 1+ Sodium Level 138 Potassium Level 3.7 Chloride Level 106 Carbon Dioxide Level 28 Anion Gap 8 Blood Urea Nitrogen 15 Creatinine 0.90 Glucose Level 103 Calcium Level 8.1 L Total Bilirubin 0.0 L Direct Bilirubin 0.00 Indirect Bilirubin 0.0 Aspartate Amino Transf (AST/SGOT) 21 Alanine Aminotransferase (ALT/SGPT) 29 Alkaline Phosphatase 55 Total Protein 4.8 L Albumin 2.5 L Globulin 2.30 Albumin/Globulin Ratio 1.08 Medications Medications Current Medications Morphine Sulfate (morphine) 2 mg Q4H PRN IV PAIN Last administered on 01:30; Admin Dose 2 MG; Start 03/25/17 at 23:30 Docusate Sodium 100 mg 100 mg BID PO Last administered on 03/28/17 08:58; Admin Dose 100 MG; Start 03/26/17 at 10:30 Multivitamins 10 ml/Thiamine HCl 100 mg/Folic Acid 1 mg/Sodium Chloride 1,011.2 ml @ 125 mls/ hr Q24H IV Last administered on 03/27/17 08:48; Admin Dose 125 MLS/HR; Start 03/26/17 at 12:00; Stop 03/28/17 at 20:06 Sodium Chloride (NS) 1,000 ml @ 100 mls/hr Q10H IV Last administered on 02:43; Admin Dose 100 MLS/HR; Start 03/26/17 at 11:00 Lorazepam (Ativan) 1 mg Q8H PRN IV AGITATION; Start 03/26/17 at 00:00 Ondansetron HCl (Zofran Inj) 4 mg Q6H PRN IV NAUSEA AND/OR VOMITING; Start at 00:00 Thiamine HCl (Vitamin B1) 100 mg DAILY PO Last administered on 03/28/17 08:58 ; Admin Dose 100 MG; Start 03/27/17 at 09:00 Chlordiazepoxide (Librium) 25 mg TID PO Last administered on 03/28/17 08:58; Admin Dose 25 MG; Start 03/26/17 at 21:00; Stop 03/28/17 at 20:59 Pantoprazole (Protonix Tab) 40 mg DAILY@06 PO Last administered on 03/28/17 05 :59; Admin Dose 40 MG; Start 03/27/17 at 06:00 JORGE VAZQUEZ NP Mar 28, 2017 11:13
[2017-03-28] MEDS: MULTIVITAMINS 10 ML, THIAMINE 100 MG, FOLIC ACID 1 MG in SOD CHLORIDE 0.9% 1,000 ML IV SCH (11:55)
[2017-03-28] MEDS ORDERED: LIDOCAINE 2% (SDV) 5 ML INJ ONE (17:09)
[2017-03-28] MEDS ORDERED: PROPOFOL 60 ML ONE (17:09)
--- NOTE | 2017-03-28 17:45 | OPPN ---
Date/Time of Note Date/Time of Note DATE: 03/28/17 TIME: 17:38 Proc Note GI Free Text/Dictation Preoperative Diagnosis: GI bleeding/hematochezia Postoperative Diagnosis: * Grade I/IV after varices. No intervention * Mild distal esophagitis. * Moderate gastritis. Rule out H. pylori infection. Biopsies obtained * 3 duodenal ulcers measuring between 8 and 15 mm. Clean base. No stigmata * Otherwise normal EGD Plan: * Protonix 40 mg twice daily * Review pathology * Abstinence Procedure Performed: EGD with biopsies Surgeon: Ilana Pro MD Compound Finisher: None Second Mountain Services Manager: None Anesthesia/Sedation: MAC by anesthesiologist Tourniquet Time: NA Estimated Blood Loss: None Transfusion Required: No Specimens: Gastric body and antrum Grafts/Implants: None Tubes/Drains: NA Complications: None Pt. Condition Post Procedure: Stable Disposition: PACU After informed consent, with the patient/relatives understanding the procedure, its indications, potential risks and complications, including but not limited to : allergic reaction, bleeding, perforation or infection, and after all pertinent questions were answered to the patients satisfaction, the patient/ relatives signed witnessed informed consent. Following this, premedication was administered slowly IV push under careful cardiovascular and respiratory monitoring with pulse oximetry, automatic blood pressure, and tub attendant. Once the sedative effect was achieved the patient was place in the left lateral decubitus, the panendoscope was introduced and advanced under visual control. Careful examination of the upper gastrointestinal tract, both on insertion as well as withdrawal of the instrument disclosing the following findings: ESOPHAGUS: the mucosa of the entire esophagus was carefully examined and showed the following findings: There are grade I/IV esophageal varices been no intervention required. There is mild erythema and edema of the mucosa at the e.g. junction. Otherwise the mucosa appears within normal limits. There is no evidence of neoplasm, or stricture. No Hiatal Hernia identified. STOMACH: Upon entrance to the stomach air was insufflated, the gastric guerrier distended normally. The mucosa of the fundus, body and antrum of the stomach was carefully examined both head-on and on retroflexion, and showed the following findings: There is erythema and edema because of the body and antrum of the stomach. Biopsies were obtained to rule out H. pylori infection. Otherwise the mucosa appears within normal limits with no abnormalities. There is no evidence of ulcers or neoplasm. PYLORUS: The pylorus was carefully examined and showed the following findings: the pylorus appears patent and within normal limits, with no evidence of gastric outlet obstruction. DUODENUM: The duodenal mucosa was carefully examined in the duodenal bulb as well as the second portion of the duodenum and showed the following findings: There are 3 ulcerations in the duodenal bulb measuring from 8-15 mm, they all have clean base, there is no stigmata recent bleeding. Otherwise the mucosa appears unremarkable. Procedure date: Mar 28, 2017 ILANA PRO MD Mar 28, 2017 17:45
--- NOTE | 2017-03-28 17:48 | OPPN ---
Date/Time of Note Date/Time of Note DATE: 03/28/17 TIME: 17:45 Proc Note GI Free Text/Dictation Procedure Date: 03/28/2017 Preoperative Diagnosis: GI bleeding/hematochezia Postoperative Diagnosis: * Normal colonic mucosa to cecum * Moderate to large internal hemorrhoids Plan: * Conservative management of hemorrhoidal disease * Abstinence Procedure Performed: Colonoscopy to cecum Surgeon: Ilana Pro MD Websphere Commerce Architect: None Second Turret Lathe Operator: None Anesthesia/Sedation MAC by anesthesiologist Tourniquet Time: NA Estimated Blood Loss: None Transfusion Required: No Specimens: None Grafts/Implants: None Tubes/Drains: NA Complications: None Pt. Condition Post Procedure: Stable Disposition: PACU After informed consent, with the patient/relatives understanding the procedure, its indications and potential risks and complications, including but not limited to: Allergic reaction, bleeding, perforation, infection, and after all pertinent questions were answered to the patient's satisfaction, the patient/ relatives signed the witnessed informed consent. Following this, premedication was administered slowly IV push under careful cardiovascular and respiratory monitoring with pulse OXIMETRY, automatic blood pressure, and ekg monitor tech. Once the sedative effect was achieved, the patient was placed in the left lateral decubitus position, digital rectal examination was performed. The colonoscope was then introduced and advanced under visual control throughout all segments of the colon including: the rectum, sigmoid, descending colon, splenic flexure, transverse colon, hepatic flexure, ascending colon and finally reaching the cecum which was clearly identified by transillumination, finger indentation and the ileocecal valve. Careful examination of the mucosa of the lower gastrointestinal tract both on insertion as well as withdrawal of the instrument disclosed the following findings: PREPARATION QUALITY: , [fair, procedure completed] RECTAL EXAM: The anorectal area was visualized examined and digital rectal examination performed with the following findings: No evidence of perirectal disease, no masses. COLONIC MUCOSA: The mucosa of all segments of the colon was carefully examined and showed the following findings: the examined mucosa appears within normal limits. There is no evidence of inflammatory changes, diverticular formation, polyps or other neoplasms, vascular malformation, or any other abnormality. Moderate to large internal hemorrhoids with no active bleeding The instrument was then withdrawn, the patient tolerated the procedure well and was transferred out of the Endoscopy Suite awake and in good condition to continue recovery under observation. Procedure date: Mar 28, 2017 ILANA PRO MD Mar 28, 2017 17:48
[2017-03-29] VITALS (7 sets, daily range): BP systolic 100–131; BP diastolic 48–92; PULSE 76–98; RESP 17–20
[2017-03-29 07:39] LABS: BASOPHILS % 0.6 % (0.0-2.0); EOSINOPHILS # 0.2 10^3/ul (0.0-0.5); EOSINOPHILS % 3.2 % (0.0-7.0); HEMATOCRIT 25.3 % (42.0-52.0); HEMOGLOBIN 8.8 g/dl (14.0-18.0); LYMPHOCYTES % 31.5 % (15.0-51.0); MEAN CORPUSCULAR HEMOGLOBIN 33.1 pg (29.0-33.0); MEAN CORPUSCULAR HGB CONC 34.8 g/dl (32.0-37.0); MEAN CORPUSCULAR VOLUME 95.1 fl (82.0-101.0); MEAN PLATELET VOLUME 10.1 fl (7.4-10.4); MONOCYTE # 0.8 10^3/ul (0.3-0.9); MONOCYTES % 11.9 % (0.0-11.0); NEUTROPHILS % 52.2 % (39.0-77.0); PLATELET COUNT 237 10^3/UL (140-415); RED BLOOD COUNT 2.66 10^6/ul (4.70-6.10); RED CELL DISTRIBUTION WIDTH 14.8 % (11.5-14.5); WHITE BLOOD COUNT 6.3 10^3/ul (4.8-10.8)
[2017-03-29 08:03] LABS: CALCIUM 8.2 mg/dl (8.4-10.2); CREATININE 1.03 mg/dl (0.61-1.24)
[2017-03-29] MEDS: DOCUSATE SODIUM 100 MG CAP PO SCH (08:54)
[2017-03-29] MEDS: THIAMINE 100 MG TAB PO SCH (08:54)
[2017-03-29] MEDS: PANTOPRAZOLE (EC) 40 MG TAB PO SCH (08:54)
[2017-03-29] MEDS: SOD CHLORIDE 0.9% 1,000 ML IV SCH (08:57)
--- NOTE | 2017-03-29 10:14 | PDOCDIS ---
Discharge Instructions CONDITION Patient Condition: Stable HOME CARE INSTRUCTIONS: Diet Instructions: Regular FOLLOW UP/APPOINTMENTS Follow-up Plan 1.Follow up with primary care physician in 1 week If you don't have one please let someone know, we can give you resources that may help you pick one. You may also call your insurance company to assign one to you. Review your medication list with your nurse before leaving and if you need new prescriptions please let your nurse know. I may have made changes to your home medications or given you new prescriptions, please let your primary doctor know as well. Stay compliant with your medications and report any side effects to your PCP or pharmacist. Return to the ER if you have any concerns and cannot reach your doctors or call your insurance company, they usually have a nurse that can help you. 2. Call 911 or go to the nearest emergency room if experiencing loss of consciousness, dizziness, chest pain, shortness of breath, vomiting/abdominal pain, speech difficulties, motor weakness or any unusual symptoms. JORGE VAZQUEZ NP Mar 29, 2017 10:14
[2017-03-29] MEDS ORDERED: PANT40TA4 PO (10:15)
[2017-03-29] MEDS ORDERED: MULTI PO (10:15)
[2017-03-29] MEDS ORDERED: DOCU-144 PO (20:15)
--- NOTE | 2017-03-29 20:59 | DS ---
DATE OF ADMISSION: 03/25/2017 DATE OF DISCHARGE: 03/29/2017 CONSULTANTS: Ifrah Pro MD, Gastroenterology. DISCHARGE DIAGNOSES: 1. Acute anemia, secondary to lower gastrointestinal (GI) bleed. 2. Alcoholism. 3. Meth and cocaine abuse. 4. H. pylori-outpatient treatment was recommended with gastroenterology. HOSPITAL COURSE: This is a 41-year-old male with past medical history of alcohol abuse, substance abuse, who initially presented to [facility] for a 3 day duration of bloody stool. The patient has been having this problem off and on for the past 3 years and he a colonoscopy done in the past which showed gastric ulcers. The patient also has current history of heavy alcohol, tobacco, cocaine and meth abuse. The patient did not have any other constitutional symptoms. In the emergency room, the patient was noted with hemoglobin of 8.8, hematocrit 25.4. The patient was admitted for further evaluation. The patient continued to have melena. He was evaluated by industry operations investigator. The patient was given starter 2 units of packed red blood cells. The patient's hemoglobin was dropped to 6.9 with a hematocrit of 20.4. He was treated with 2 units of packed red blood cells. The patient had undergone endoscopy and colonoscopy on 03/28/2017 with the findings of moderate gastritis with 3 duodenal ulcers and mild distal esophagitis. The recommendation was to continue Protonix b.i.d. The patient's colonoscopy revealed moderate to large internal hemorrhoids. Recommendation was conservative management for hemorrhoidal disease. The patient was instructed on avoiding straining and constipation. He was advised to take over the counter Colace as he is also taking low dose over the counter iron due to blood loss anemia. The patient's hemoglobin remained stable thereafter. He did not require any further transfusion. The patient was able to tolerate diet and activities well. He was educated on cessation of alcohol and substance abuse. The patient verbalized discharge instructions. DISPOSITION: The patient will be discharged home today. FOLLOWUP: The patient was instructed to followup with Gastroenterology regarding pathology report. He was given the phone number to contact Dr. Pro's office to get the pathology report. He was also instructed that he needs to be on treatment if H. pylori is positive. The patient was also given a chance to stay in the hospital to get the pathology report, however, he opted to contact his industry operations investigator regarding getting the report and was start treatment if it is positive. The patient verbalized discharge instructions. He was discharged on Protonix treatment. CONDITION ON DISCHARGE: Stable. PHYSICAL EXAMINATION: VITAL SIGNS: Discharge vital signs, temperature 98.8, pulse rate 105, blood pressure 131/92, respiratory rate 17, oxygen saturation 100 percent on room. PERTINENT LABS AND DIAGNOSTIC DATA: On 03/29/2017, CBC, WBC 6300, hemoglobin 8.8, hematocrit 25.3, platelet 237. On 03/29/2017, BMP, sodium 145, potassium 4, BUN 10, creatinine 1.03, and glucose 93. On 03/26/2017, stool OB positive. On 03/26/2017, liver ultrasound unremarkable right upper quadrant abdominal ultrasound. On 03/28/2017, endoscopy. 0n 03/28/2017, colonoscopy. DISCHARGE MEDICATIONS: 1. Protonix 40 mg p.o. b.i.d. 2. Multivitamin 1 tab p.o. daily. 3. Colace 100 mg p.o. b.i.d. p.r.n. for constipation. At this time I would like to thank Dr. Pro for seeing the patient, providing medical recommendation and performing appropriate procedures on this patient. Approximately 60 minutes spent on discharging the patient. Case discussed with Dr. Mata. Dictated By: Lian Contreras NP /danielle/keyon /Document#: [id number] Addendum Pathology report came back positive for H. pylori. I have contacted industry operations investigator , and as per MD, he will call patient and we will start patient on appropriate treatment regimen. Case discussed with Dr. Mata. [facility] MEDICAL CENTERConcepción
== END 2017-03-29 13:38 | disposition home or self-care (01) | DRG 392 ==
LOC: MS4 21:58
PROVIDERS: ADMIT Internal Medicine; ATTEND Internal Medicine
PROC: 0DB68ZX Excision of Stomach, Via Natural or Artificial Opening Endoscopic, Diagnostic (ICD-10-PCS; principal; 2017-03-28 19:30)
PROC: 0DJD8ZZ Inspection of Lower Intestinal Tract, Via Natural or Artificial Opening Endoscopic (ICD-10-PCS; 2017-03-28 19:30)
DX: K29.70 Gastritis, unspecified, without bleeding (principal); K26.9 Duodenal ulcer, unspecified as acute or chronic, without hemorrhage or perforation; K92.2 Gastrointestinal hemorrhage, unspecified; K20.9 Esophagitis, unspecified; K64.8 Other hemorrhoids; K92.1 Melena; D62 Acute posthemorrhagic anemia; F10.10 Alcohol abuse, uncomplicated; F19.10 Other psychoactive substance abuse, uncomplicated; F14.10 Cocaine abuse, uncomplicated; F17.200 Nicotine dependence, unspecified, uncomplicated; G89.29 Other chronic pain; R10.11 Right upper quadrant pain; Z87.11 Personal history of peptic ulcer disease
CPT/HCPCS: 36430; 76705; 80048; 80053; 82270; 82728; 83540; 83735; 84100; 85025; 85610; 85730; 86850; 86900; 86901; 86920; 88305; 88312; C9113; J2270; J3411; J7030; J7040; P9016

== ENCOUNTER 2018-11-27 09:14 | Inpatient (IN) | payer OTHER ==
[~2018-11-27] VITALS: Ht 188 cm; Wt 82.7 kg
[~2018-11-27 09:14] MED LIST: DOCU-144 PO; MULTI PO; PANT40TA4 PO
--- NOTE | 2018-11-27 09:40 | ERD ---
ER Documentation Chief Complaint Chief Complaint pt sent from [facility] for ap x 2 months HPI This is a 43-year-old man with recent history of methamphetamine and cocaine abuse initially presenting to [facility] for 2 months of right-sided abdominal pain and right flank pain with episodes of nonbloody nonbilious emesis. A work-up was done in the emergency department, he was given multiple doses of intravenous morphine and eventually accepted by [facility] hospitalist for admission to [facility]. Patient has had no blood per rectum or melena, no complaints of chest pain or shortness of breath but does admit to 50 pound weight loss in the last 2 weeks he has had constipation as well. He has a history of alcohol abuse. ROS All systems reviewed and are negative except as per history of present illness. Medications Home Meds Active Scripts Docusate Sodium* (Colace*) 100 Mg Capsule, 100 MG PO BID, #60 CAP Prov:VAZQUEZ,JORGE V. TRAY ROOM WORKER 03/29/17 Multivitamins* (Theragran*) 1 Tab Tab, 1 TAB PO DAILY, #30 TAB Prov:VAZQUEZ,JORGE V. TRAY ROOM WORKER 03/29/17 Pantoprazole* (Pantoprazole*) 40 Mg Tablet.dr, 40 MG PO BID, #60 TAB Prov:VAZQUEZ,JORGE V. TRAY ROOM WORKER 03/29/17 Allergies Allergies: Coded Allergies: No Known Allergy (Unverified , 03/26/17) PMhx/Soc Drug and alcohol abuse FmHx Family History: No diabetes Physical Exam Vitals Vital Signs Date Temp Pulse Resp B/P (MAP) Pulse Ox O2 O2 Flow FiO2 Time Delivery Rate 11/27/18 98.9 136 18 102/61 100 09:20 (75) Physical Exam GENERAL: Well-developed, well-nourished, afebrile HEENT: Moist mucous membranes, pink conjunctiva, no cervical spine tenderness or step-off deformities CARDIAC: Regular rate and rhythm, no murmurs rubs or gallops LUNGS: Clear bilaterally no wheezing crackles or stridor ABDOMEN: Soft nontender, no guarding, no rigidity, no rebound, no psoas sign no obturator sign. SKIN: Warm and dry to touch, no abrasions, contusions, or hematomas, no lacerations, no ecchymosis, no target lesions, and without ulcers EXTREMITIES: No clubbing cyanosis or edema, calves are bilaterally symmetrical, no Homans sign, no popliteal cord sign. Distal pulses equal and bilateral PSYCH: Normal affect without agitation or irritability Procedures/MDM IV line was established patient was placed on stock preparation operator rhythm strip revealed a sinus rhythm at about [80] bpm with upright P and T waves. Patient was afebrile Patient is on a normal saline IV infusion and is without complaints of pain at this time. I reviewed the patient's recent medical records from [facility] Patient will be admitted to [facility] to hospitalist team for management of recent weight loss, failure to thrive, intractable pain. Departure Diagnosis: Primary Impression: Intractable abdominal pain Additional Impressions: Methamphetamine abuse Alcohol abuse Vomiting Vomiting type: unspecified Vomiting Intractability: intractable Nausea presence: with nausea Qualified Codes: R11.2 - Nausea with vomiting, unspecified Unexplained weight loss Condition: TAURUS Norris MD Nov 27, 2018 09:40
[2018-11-27 12:17] VITALS: BP 96/62; PULSE 133; RESP 18
[2018-11-27 12:45] VITALS: Ht 188 cm; Wt 82.7 kg
[2018-11-27] MEDS ORDERED: NACL 0.9% 3 ML SYG IV SCH (13:00)
[2018-11-27] MEDS: PANTOPRAZOLE 40 MG INJ IV SCH ×2 (13:10→18:22)
[2018-11-27] MEDS: DEXTROSE 5%-0.45% NACL 1,000 ML IV SCH (13:10)
--- NOTE | 2018-11-27 13:18 | CONS ---
Assessment/Plan Assessment/Plan Hospital Course (Demo Recall) Summary Assessment and Plan: Assessment: RUQ pain- imaging per records suspicious for PUD Unintentional 50 lb weight loss- over the last 2 months Change in bowel habits- new onset Constipation Urine toxicology: Noted for amphetamines, cocaine, opioids Hx of esophageal ulcers Current smoker 1/2 a day x 20 years Plan: GI cocktail x1 Clear liquid diet today - NPO after 11/28/18 0800 EGD/colonoscopy tomorrow [Endoscopy - risks/benefits/alternatives/indications of procedure and sedation/anesthesia discussed with patient who states understanding and gives informed consent to proceed. PARQ held and questions were answered.] Patient seen in collaboration with Dr. Pro CC: ILANA PRO MD ; Consultation Date/Type/Reason Admit Date/Time Nov 27, 2018 at 10:16 Date of Consultation: Nov 27, 2018 Type of Consult GI Reason for Consultation Abdominal pain Unintentional weight loss Date/Time of Note DATE: 11/27/18 TIME: 13:12 Hx of Present Illness This is a 43-year-old male with past medical history who presented to [facility] with complaints of abdominal pain and nausea and nonbloody nonbilious vomiting x2 months. Patient notes pain is located to the right upper abdomen. Pain is not aggravated or relieved by anything in particular. Per notes patient underwent CT abdomen pelvis with findings suggestive of PUD. He also notes a 50 pound weight loss over the past 2 months and the change of bowel habits starting 2 months ago with predominant constipation. Socially patient denies drug use however urine toxicology screen positive for cocaine, amphetamines, opioids. He states he is a current smoker smokes half a pack per day x20+ years and occasionally drinks alcohol patient states he has not drank alcohol this year thus far. Has been consulted for endoscopic evaluation. At time evaluation patient complains of epigastric right upper quadrant pain states he has had poor intake discussed plan for EGD/colonoscopy reviewed risk/benefits of both sedation and seizure patient verbalized understanding is agreeable. Patient states he is previously had upper endoscopy several years ago positive for esophageal ulcers. Review of Systems: [A 12 system, review was conducted and is negative except as noted in the HPI or here.] Past Medical History Home Meds Discontinued Scripts Docusate Sodium* (Colace*) 100 Mg Capsule, 100 MG PO BID, #60 CAP Prov:VAZQUEZ,JORGE V. SWAHILI TEACHER 03/29/17 Multivitamins* (Theragran*) 1 Tab Tab, 1 TAB PO DAILY, #30 TAB Prov:VAZQUEZ,JORGE V. SWAHILI TEACHER 03/29/17 Pantoprazole* (Pantoprazole*) 40 Mg Tablet.dr, 40 MG PO BID, #60 TAB Prov:VAZQUEZ,JORGE V. SWAHILI TEACHER 03/29/17 Medications Current Medications Dextrose/Sodium Chloride 1,000 ml @ 75 mls/hr [id number] IV ; Start 11/27/18 at 12:32 IV Flush (NS 3 ml) 3 ml PER PROTOCOL IV ; Start 11/27/18 at 13:00 Hydromorphone HCl (Dilaudid) 0.5 mg Q4H PRN IV .SEVERE PAIN 7-10; Start 11/27/18 at 13:00 Pantoprazole (Protonix Iv) 40 mg BID@06,18 IV ; Start 11/27/18 at 13:00 Allergies: Coded Allergies: No Known Allergy (Unverified , 11/27/18) Past Surgical History Past Surgical Hx: endoscopy Social History Smoking Status: Never smoker Exam/Review of Systems Exam Vitals Vital Signs Date Temp Pulse Resp B/P (MAP) Pulse Ox O2 O2 Flow FiO2 Time Delivery Rate 11/27/18 97.5 133 18 96/62 (73) 99 Room Air 12:17 Exam PHYSICAL EXAMINATION: GENERAL: Alert & oriented x 3, thin SKIN: No lesions HEAD: Normocephalic, atraumatic, no tenderness. EYES: Pupils equal reactive to light, no discharge. EARS/NOSE AND THROAT: Ears normal, nose normal, oropharynx normal. NECK: Supple, no masses. CHEST: Inspection within normal limits. CARDIOVASCULAR: Heart: Regular rate and rhythm RESPIRATORY: Lungs clear to auscultation GASTROINTESTINAL AND LIVER: Abdomen: Soft, RUQ tenderness, non-distended, no hernias, no masses, no rebound tenderness, normoactive bowel sounds. Rectal: Deferred. EXTREMITIES: No cyanosis, clubbing or edema. Results Results 24hrs Laboratory Tests Test 11/27/18 13:04 White Blood Count Pending Red Blood Count Pending Hemoglobin Pending Hematocrit Pending Mean Corpuscular Volume Pending Mean Corpuscular Hemoglobin Pending Mean Corpuscular Hemoglobin Concent Pending Red Cell Distribution Width Pending Platelet Count Pending Mean Platelet Volume Pending Medications Medication Current Medications Dextrose/Sodium Chloride 1,000 ml @ 75 mls/hr [id number] IV ; Start 11/27/18 at 12:32 IV Flush (NS 3 ml) 3 ml PER PROTOCOL IV ; Start 11/27/18 at 13:00 Hydromorphone HCl (Dilaudid) 0.5 mg Q4H PRN IV .SEVERE PAIN 7-10; Start 11/27/18 at 13:00 Pantoprazole (Protonix Iv) 40 mg BID@06,18 IV ; Start 11/27/18 at 13:00 ALIVIA GILES Nov 27, 2018 13:18
--- NOTE | 2018-11-27 13:19 | HP ---
Date/Time of Note Date/Time of Note DATE: 11/27/18 TIME: 12:59 Assessment/Plan VTE Prophylaxis SCD applied (from Nsg): Yes Pharmacological prophylaxis: heparin Assessment/Plan Hospital Course 43 yo male with known PUD/H Pylori infection in the past, iron deficiency anemia, PSA presents with RUQ pain x 2 months with weight loss with imaging at outside hosptial showing duodenal ulcer. I presume this is the cause of his abdominal pain - Start PPI IV - Clear diet - GI for consideration of endoscopy Tachycardia: - I suspect this is 2/2 pain and stimulant use - Monitor vitals Cocaine use d/o Methamphetamien use d/o: - Counseled on cessation JANETH vs CKD - trend creatinine, workup if remains elevated HPI/ROS Admit Date/Time Admit Date/Time Nov 27, 2018 at 10:16 Hx of Present Illness 43 yo male with h/o PUD with H Pyloir infection, iron deficiency anemia, drug abuse presents with abdominal pain Pain has been present for two months, most localized to RUQ. Vomiting with food. Says he has lost 40 pounds. Went to [facility] where CT report mentions duodenal ulcer. Transferred her for management. Of note he is tachycardic, HD stable. Has been using cocaine and meth. No CP or SOB. ROS Constitutional: no complaints, improved Eyes: no complaints ENT: no complaints Respiratory: no complaints Cardiovascular: no complaints Gastrointestinal: no complaints Genitourinary: no complaints Musculoskeletal: no complaints Skin: no complaints Neurologic: no complaints Endocrine: no complaints Lymphatic: no complaints Psychological: no complaints, nl mood/affect Immunologic: no complaints PMH/Family/Social Past Medical History Medical History: peptic ulcer disease Medications Current Medications Dextrose/Sodium Chloride 1,000 ml @ 75 mls/hr [id number] IV ; Start 11/27/18 at 12:32 IV Flush (NS 3 ml) 3 ml PER PROTOCOL IV ; Start 11/27/18 at 13:00 Hydromorphone HCl (Dilaudid) 0.5 mg Q4H PRN IV .SEVERE PAIN 7-10; Start 11/27/18 at 13:00 Pantoprazole (Protonix Iv) 40 mg BID@06,18 IV ; Start 11/27/18 at 13:00 Coded Allergies: No Known Allergy (Unverified , 11/27/18) Past Surgical History Past Surgical Hx: no surgical history, endoscopy Family History Significant Family History: no pertinent family hx Social History Alcohol Use: none Smoking Status: Never smoker Drug Use: none, cocaine, other Exam/Review of Systems Vital Signs Vitals Vital Signs Date Temp Pulse Resp B/P (MAP) Pulse Ox O2 O2 Flow FiO2 Time Delivery Rate 11/27/18 97.5 133 18 96/62 (73) 99 Room Air 12:17 Exam Constitutional: alert, oriented, well developed Psych: no complaints, nl mood/affect Head: normocephalic, atraumatic Eyes: nl conjunctiva, EOMI, nl lids, nl sclera, PERRL ENMT: nl external ears & nose, nl lips & teeth, nl nasal mucosa & septum Neck: supple, non-tender Respiratory: clear to auscultation, normal air movement Cardiovascular: regular rate and rhythm, nl pulses Gastrointestinal: soft, nl liver, spleen, non-tender Musculoskeletal: nl extremities to inspection Extremities: normal pulses Neurological: BOND UNDERWRITER II-XII intact, nl mental status, nl speech, nl strength Skin: nl turgor; No rash or lesions Lymph: nl lymph nodes NASEEM GILBERT MD Nov 27, 2018 13:16
[2018-11-27] MEDS ORDERED: LIDOCAINE/MYLANTA 40 ML BTL PO ONE (14:00)
[2018-11-27] MEDS ORDERED: BISACODYL (EC) 5 MG TAB PO ONE (14:00)
[2018-11-27] MEDS ORDERED: SOD CHLORIDE 0.9% 1,000 ML IV ONE (15:00)
[2018-11-27] MEDS ORDERED: MAGNESIUM CITRATE 300 ML BTL PO ONE (17:30)
[2018-11-27] MEDS ORDERED: POLYETHYLENE GLYCOL 3350 119 GM POWDER PO ONE (18:30)
[2018-11-27] MEDS: HYDROmorphONE 0.5 MG/0.5 ML SYG IV PRN (18:59)
[2018-11-27 21:00] VITALS: BP 83/54; PULSE 127; RESP 16
[2018-11-28] VITALS (7 sets, daily range): BP systolic 91–117; BP diastolic 52–68; PULSE 110–120; RESP 18–22
[2018-11-28] MEDS: HYDROmorphONE 0.5 MG/0.5 ML SYG IV PRN ×4 (01:11→21:56)
[2018-11-28] MEDS: DEXTROSE 5%-0.45% NACL 1,000 ML IV SCH ×2 (02:18→17:59)
[2018-11-28] MEDS: PANTOPRAZOLE 40 MG INJ IV SCH ×2 (05:31→17:57)
[2018-11-28] MEDS ORDERED: POLYETHYLENE GLYCOL 3350 119 GM POWDER PO ONE (06:00)
[2018-11-28] MEDS ORDERED: BISACODYL (EC) 5 MG TAB PO ONE (08:00)
--- NOTE | 2018-11-28 13:47 | PREAC ---
Date/Time of Note Date/Time of Note DATE: 11/28/18 TIME: 13:45 Anesthesia Eval and Record Evaluation Time Pre-Procedure Interview DATE: 11/28/18 TIME: 13:45 Age 43 Sex male NPO: 8 hrs Preoperative diagnosis Peptic Ulcer Disease, Wt Loss, Abdominal Pain Planned procedure EGD, Colonoscopy Past Medical History Past Medical History: Includes Renal: CKD GI: Other (H. Pulori, Peptic Ulcer ) Heme: Anemia Recreational drugs: Cocaine Surgery & Anesthesia Issues No known issue Meds Anticoagulation: No Beta Jong within 24 hr: No Reason Beta Jong not given: Pt. not on B-Jong Discontinued Scripts Docusate Sodium* (Colace*) 100 Mg Capsule, 100 MG PO BID, #60 CAP Prov:VAZQUEZ,JORGE V. DIRECTOR DANCE 03/29/17 Multivitamins* (Theragran*) 1 Tab Tab, 1 TAB PO DAILY, #30 TAB Prov:VAZQUEZ,JORGE V. DIRECTOR DANCE 03/29/17 Pantoprazole* (Pantoprazole*) 40 Mg Tablet.dr, 40 MG PO BID, #60 TAB Prov:VAZQUEZ,JORGE V. DIRECTOR DANCE 03/29/17 Current Medications Dextrose/Sodium Chloride 1,000 ml @ 75 mls/hr [id number] IV Last administered on 11/28/18at 02:18; Admin Dose 75 MLS/HR; Start 11/27/18 at 12:32 IV Flush (NS 3 ml) 3 ml PER PROTOCOL IV ; Start 11/27/18 at 13:00 Hydromorphone HCl (Dilaudid) 0.5 mg Q4H PRN IV .SEVERE PAIN 7-10 Last admi nistered on 11/28/18at 05:32; Admin Dose 0.5 MG; Start 11/27/18 at 13:00 Pantoprazole (Protonix Iv) 40 mg BID@06,18 IV Last administered on 11/28/18at 05:31; Admin Dose 40 MG; Start 11/27/18 at 13:00 Meds reviewed: Yes Allergies Coded Allergies: No Known Allergy (Unverified , 11/27/18) Allergies Reviewed: Yes Labs/Studies Labs Reviewed: Reviewed by anesthesiologist Result Diagram: 11/28/18 0435 11/28/18 0435 Laboratory Tests 11/28/18 04:35 test: N/A Studies: ECG (n/a), CXR (n/a) Pre-procedure Exam Last vitals Vital Signs Date Temp Pulse Resp B/P (MAP) Pulse Ox O2 O2 Flow FiO2 Time Delivery Rate 11/28/18 99.4 120 20 91/54 (66) 96 07:36 11/27/18 Room Air 12:17 Airway: Adequate mouth opening, Adequate thyromental dist Mallampati: Mallampati II Teeth: Normal Lung: Normal Heart: Normal ASA Physical Status ASA physical status: 3 Emergency: None Planned Anesthetic General/MAC: MAC Planned Pain Management Parenteral pain med Pre-operative Attestations Prior to commencing anesthesia and surgery, the patient was re-evaluated, there was verification of: *The patient's identity *The results of appropriate recent lab work and preoperative vital signs *The above evaluation not changing prior to induction *Anesthetic plan, risk benefits, alternative and complications discussed with patient/family; questions answered; patient/family understands, accepts and wishes to proceed. AMADOR HICKS MD Nov 28, 2018 13:47
[2018-11-28] MEDS ORDERED: IOHEXOL 14.3 MG(I)/ML (ADULT) BTL PO ONE (14:30)
--- NOTE | 2018-11-28 14:49 | PAC ---
Date/Time of Note Date/Time of Note DATE: 11/28/18 TIME: 14:48 Post-Anesthesia Notes Post-Anesthesia Note Last documented vital signs Vital Signs Date Temp Pulse Resp B/P (MAP) Pulse Ox O2 O2 Flow FiO2 Time Delivery Rate 11/28/18 99.4 120 20 91/54 (66 96 014:36 11/27/18 Room Air 12:17 Activity: WNL Respiratory function: WNL Cardiovascular function: WNL Mental status: Baseline Pain reasonably controlled: Yes Hydration appropriate: Yes Nausea/Vomiting absent: Yes AMADOR HICKS MD Nov 28, 2018 14:49
[2018-11-28] MEDS ORDERED: EPHEDrine SULFATE 50 MG/5 ML SYG IV PRN (15:00)
[2018-11-28] MEDS ORDERED: FENTAnyl 50 MCG/ML VIAL IV PRN (15:00)
[2018-11-28] MEDS ORDERED: METOCLOPRAMIDE 10 MG INJ IV PRN (15:00)
[2018-11-28] MEDS ORDERED: ONDANSETRON 4 MG INJ IV PRN (15:00)
[2018-11-28] MEDS ORDERED: morphine (1 MG/ML) 10ML SYRINGE IV PRN (15:00)
[2018-11-28] MEDS ORDERED: ALBUMIN HUMAN 5% 250 ML IV PRN (15:00)
[2018-11-28] MEDS ORDERED: HYDROmorphONE 1 MG/5 ML IV SYRINGE IV PRN ×2 (15:00)
[2018-11-28] MEDS ORDERED: PHENYLephrine (100 MCG/ML) 10ML SYG ONE (15:32)
[2018-11-28] MEDS ORDERED: PROPOFOL 80 ML ONE (15:32)
--- NOTE | 2018-11-28 15:33 | PN ---
Date/Time of Note Date/Time of Note DATE: 11/28/18 TIME: 15:29 Assessment/Plan VTE Prophylaxis Risk score (from Nsg)>0 risk: 1 SCD applied (from Nsg): Yes Pharmacological prophylaxis: heparin Lines/Catheters IV Catheter Type (from Nrsg): Peripheral IV Assessment/Plan Hospital Course 43 yo male with known PUD/H Pylori infection in the past, iron deficiency anemia, PSA presents with RUQ pain x 2 months with weight loss with imaging at outside hosptial showing duodenal ulcer, now confirmed on EGD Perforating duodenal ulceration - Continue PPI IV - Surgery consult - f/u pathology Tachycardia: - I suspect this is 2/2 pain and stimulant use - Monitor vitals Cocaine use d/o Methamphetamien use d/o: - Counseled on cessation JANETH vs CKD - trend creatinine, slightly improved with fluids. UA, US Result Diagram: 11/28/18 0435 11/28/18 0435 Results 24hrs Laboratory Tests Test 11/28/18 04:35 White Blood Count 23.1 #H Red Blood Count 3.38 L Hemoglobin 10.0 L Hematocrit 29.4 L Mean Corpuscular Volume 87.0 Mean Corpuscular Hemoglobin 29.6 Mean Corpuscular Hemoglobin Concent 34.0 Red Cell Distribution Width 13.2 Platelet Count 475 H Mean Platelet Volume 10.2 Immature Granulocytes % 0.700 H Neutrophils % Segmented Neutrophils % (Manual) 56 Band Neutrophils % (Manual) 32 H Lymphocytes % Lymphocytes % (Manual) 9 L Monocytes % Monocytes % (Manual) 3 Eosinophils % Basophils % Nucleated Red Blood Cells % 0.0 Immature Granulocytes # 0.160 H Neutrophils # Neutrophils # (Manual) 14.6 H Band Neutrophils # 7.3 H Lymphocytes (Manual) 2.0 Lymphocytes # Monocytes # Monocytes # (Manual) 0.6 Eosinophils # Basophils # Nucleated Red Blood Cells # Platelet Estimate NORMAL Giant Platelets 1 H Polychromasia 1+ Anisocytosis 1+ Macrocytosis 1+ Target Cells 1+ Sodium Level 134 L Potassium Level 4.4 Chloride Level 101 Carbon Dioxide Level 26 Anion Gap 7 Blood Urea Nitrogen 40 H Creatinine 1.59 H Est Glomerular Filtrat Rate mL/min 48 L Glucose Level 105 Hemoglobin A1c 5.3 Calcium Level 8.2 L Total Bilirubin 0.3 Direct Bilirubin 0.00 Indirect Bilirubin 0.3 Aspartate Amino Transf (AST/SGOT) 18 Alanine Aminotransferase (ALT/SGPT) 21 Alkaline Phosphatase 63 Total Protein 5.2 L Albumin 2.6 L Globulin 2.60 Albumin/Globulin Ratio 1.00 Lipase 99 HIV (1&2) Antibody NEGATIVE Subjective 24 Hr Interval Summary Free Text/Dictation EGD shows perforating duodenal ulceration Exam/Review of Systems Exam Vitals Vital Signs Date Temp Pulse Resp B/P (MAP) Pulse Ox O2 O2 Flow FiO2 Time Delivery Rate 11/28/18 99.4 120 20 91/54 (66) 96 07:36 11/27/18 Room Air 12:17 Intake and Output 11/27/18 11/27/18 11/28/18 1515:00 23:00 07:00 IntakeIntake Total 1030 ml 900 ml BalanceBalance 1030 ml 900 ml Results Results 24hrs Laboratory Tests Test 11/28/18 04:35 White Blood Count 23.1 #H Red Blood Count 3.38 L Hemoglobin 10.0 L Hematocrit 29.4 L Mean Corpuscular Volume 87.0 Mean Corpuscular Hemoglobin 29.6 Mean Corpuscular Hemoglobin Concent 34.0 Red Cell Distribution Width 13.2 Platelet Count 475 H Mean Platelet Volume 10.2 Immature Granulocytes % 0.700 H Neutrophils % Segmented Neutrophils % (Manual) 56 Band Neutrophils % (Manual) 32 H Lymphocytes % Lymphocytes % (Manual) 9 L Monocytes % Monocytes % (Manual) 3 Eosinophils % Basophils % Nucleated Red Blood Cells % 0.0 Immature Granulocytes # 0.160 H Neutrophils # Neutrophils # (Manual) 14.6 H Band Neutrophils # 7.3 H Lymphocytes (Manual) 2.0 Lymphocytes # Monocytes # Monocytes # (Manual) 0.6 Eosinophils # Basophils # Nucleated Red Blood Cells # Platelet Estimate NORMAL Giant Platelets 1 H Polychromasia 1+ Anisocytosis 1+ Macrocytosis 1+ Target Cells 1+ Sodium Level 134 L Potassium Level 4.4 Chloride Level 101 Carbon Dioxide Level 26 Anion Gap 7 Blood Urea Nitrogen 40 H Creatinine 1.59 H Est Glomerular Filtrat Rate mL/min 48 L Glucose Level 105 Hemoglobin A1c 5.3 Calcium Level 8.2 L Total Bilirubin 0.3 Direct Bilirubin 0.00 Indirect Bilirubin 0.3 Aspartate Amino Transf (AST/SGOT) 18 Alanine Aminotransferase (ALT/SGPT) 21 Alkaline Phosphatase 63 Total Protein 5.2 L Albumin 2.6 L Globulin 2.60 Albumin/Globulin Ratio 1.00 Lipase 99 HIV (1&2) Antibody NEGATIVE Medications Medication Current Medications Dextrose/Sodium Chloride 1,000 ml @ 75 mls/hr [id number] IV Last administered on 11/28/18at 02:18; Admin Dose 75 MLS/HR; Start 11/27/18 at 12:32 IV Flush (NS 3 ml) 3 ml PER PROTOCOL IV ; Start 11/27/18 at 13:00 Hydromorphone HCl (Dilaudid) 0.5 mg Q4H PRN IV .SEVERE PAIN 7-10 Last administered on 11/28/18at 05:32; Admin Dose 0.5 MG; Start 11/27/18 at 13:00 Pantoprazole (Protonix Iv) 40 mg BID@06,18 IV Last administered on 11/28/18at 05:31; Admin Dose 40 MG; Start 11/27/18 at 13:00 Morphine Sulfate (morphine (REC)) 2 mg PACU ORDER PRN IV MILD PAIN 1-3; Start 11/28/18 at 15:00; Stop 11/28/18 at 19:00 Hydromorphone HCl (Dilaudid) 0.2 mg PACU PRN IV MILD PAIN 1-3; Start 11/28/18 at 15:00; Stop 11/28/18 at 19:00 Hydromorphone HCl (Dilaudid) 0.4 mg PACU PRN IV MOD PAIN 4-6; Start 11/28/18 at 15:00; Stop 11/28/18 at 19:00 Fentanyl (Sublimaze) 25 mcg PACU ORDER PRN IV MILD PAIN 1-3; Start 11/28/18 at 15:00; Stop 11/28/18 at 19:00 Ondansetron HCl (Zofran Inj) 4 mg PACU ORDER PRN IV NAUSEA/VOMITING; Start 11/28/18 at 15:00; Stop 11/28/18 at 19:00 Metoclopramide HCl (Reglan) 10 mg PACU ORDER PRN IV NAUSEA/VOMITING; Start 11/28/18 at 15:00; Stop 11/28/18 at 19:00 Ephedrine Sulfate 5 mg PACU ORDER PRN IV BLOOD PRESSURE SUPPORT; Start 11/28/18 at 15:00; Stop 11/28/18 at 19:00 Albumin Human 250 ml @ 750 mls/hr PACU ORDER PRN IV BP SUPPORT; Start 11/28/18 at 15:00; Stop 11/28/18 at 19:00 NASEEM GILBERT MD Nov 28, 2018 15:33
[2018-11-28] MEDS ORDERED: FLUCONAZOLE 100 MG TAB PO SCH (21:00)
[2018-11-29] VITALS (26 sets, daily range): BP systolic 101–136; BP diastolic 56–87; PULSE 72–123; RESP 16–30
[2018-11-29] MEDS: HYDROmorphONE 0.5 MG/0.5 ML SYG IV PRN ×4 (01:52→15:53)
[2018-11-29] MEDS: DEXTROSE 5%-0.45% NACL 1,000 ML IV SCH (03:40)
[2018-11-29] MEDS: PANTOPRAZOLE 40 MG INJ IV SCH (05:22)
[2018-11-29] MEDS ORDERED: LEVOFLOXACIN 500MG/D5W (PMX) 100 ML IVPB SCH (08:30)
[2018-11-29] MEDS ORDERED: VANCOMYCIN IV PER PHARMACY XX SCH (08:30)
[2018-11-29] MEDS ORDERED: PIPER-TAZO 3.375 GM IV (PMX) 100 ML IVPB SCH (08:30)
[2018-11-29] MEDS ORDERED: FLUCONAZOLE 200 MG TAB PO SCH (09:00)
[2018-11-29] MEDS ORDERED: metroNIDAZOLE 500 MG/NS (PMX) 100 ML IVPB SCH (09:00)
[2018-11-29] MEDS ORDERED: SOD CHLORIDE 0.9% 1,000 ML IV ONE ×2 (09:00→10:00)
[2018-11-29] MEDS ORDERED: ACETAMINOPHEN 650MG/20.3ML CUP PO PRN (09:00)
--- NOTE | 2018-11-29 11:19 | PREAC ---
Date/Time of Note Date/Time of Note DATE: 11/29/18 TIME: 11:14 Anesthesia Eval and Record Evaluation Time Pre-Procedure Interview DATE: 11/29/18 TIME: 11:14 Age 43 Sex male NPO: 8 hrs Preoperative diagnosis Perforated Gastric ulcer Planned procedure Exploratory Laparotomy Past Medical History Past Medical History: Includes Heme: Anemia Surgery & Anesthesia Issues No known issue Meds Anticoagulation: No Beta Jong within 24 hr: No Reason Beta Jong not given: Pt. not on B-Jong Discontinued Scripts Docusate Sodium* (Colace*) 100 Mg Capsule, 100 MG PO BID, #60 CAP Prov:VAZQUEZ,JORGE V. KINDERGARTNERS HELPER 03/29/17 Multivitamins* (Theragran*) 1 Tab Tab, 1 TAB PO DAILY, #30 TAB Prov:VAZQUEZ,JORGE V. KINDERGARTNERS HELPER 03/29/17 Pantoprazole* (Pantoprazole*) 40 Mg Tablet.dr, 40 MG PO BID, #60 TAB Prov:VAZQUEZ,JORGE V. KINDERGARTNERS HELPER 03/29/17 Current Medications Dextrose/Sodium Chloride 1,000 ml @ 75 mls/hr [id number] IV Last administered on 11/29/18at 03:40; Admin Dose 75 MLS/HR; Start 11/27/18 at 12:32 IV Flush (NS 3 ml) 3 ml PER PROTOCOL IV ; Start 11/27/18 at 13:00 Hydromorphone HCl (Dilaudid) 0.5 mg Q4H PRN IV .SEVERE PAIN 7-10 Last administered on 11/29/18at 09:24; Admin Dose 0.5 MG; Start 11/27/18 at 13:00 Pantoprazole (Protonix Iv) 40 mg BID@06,18 IV Last administered on 11/29/18at 05:22; Admin Dose 40 MG; Start 11/27/18 at 13:00 Piperacillin Sod/ Tazobactam Sod 100 ml @ 200 mls/hr Q6 IVPB Last administered on 11/29/18at 09:04; Admin Dose 200 MLS/HR; Start 11/29/18 at 08:30 Acetaminophen (Tylenol Liquid) 650 mg Q4H PRN PO MILD PAIN(1-3)OR ELEVATED TEMP Last administered on 11/29/18at 09:04; Admin Dose 650 MG; Start 11/29/18 at 09:00 Meds reviewed: Yes Allergies Coded Allergies: No Known Allergy (Unverified , 11/27/18) Allergies Reviewed: Yes Labs/Studies Labs Reviewed: Reviewed by anesthesiologist Result Diagram: 11/29/18 0455 11/29/18 0455 Laboratory Tests 11/29/18 04:55 test: N/A Studies: ECG Pre-procedure Exam Last vitals Vital Signs Date Temp Pulse Resp B/P (MAP) Pulse Ox O2 O2 Flow FiO2 Time Delivery Rate 11/29/18 98.6 112 22 108/66 93 Room Air 10:50 (80) Airway: Adequate mouth opening, Adequate thyromental dist Mallampati: Mallampati II Teeth: Normal Lung: Normal Heart: Normal ASA Physical Status ASA physical status: 3 Emergency: E Planned Anesthetic General/MAC: ETT Neuraxial: Epidural Planned Pain Management Epidural, Parenteral pain med Pre-operative Attestations Prior to commencing anesthesia and surgery, the patient was re-evaluated, there was verification of: *The patient's identity *The results of appropriate recent lab work and preoperative vital signs *The above evaluation not changing prior to induction *Anesthetic plan, risk benefits, alternative and complications discussed with patient/family; questions answered; patient/family understands, accepts and w ishes to proceed. MEAGHAN YANES MD November 29, 2018 11:19
[2018-11-29] MEDS ORDERED: MIDAZOLAM 1 MG/ML 2 ML INJ ONE (11:40)
[2018-11-29] MEDS ORDERED: POLYMYXIN/BACITRACIN 1L IRRIG ONE (12:20)
[2018-11-29] MEDS ORDERED: ROPIVACAINE 0.5 % 30 ML VIAL ONE (12:21)
[2018-11-29] MEDS ORDERED: PHENYLephrine 10 MG INJ ONE (12:25)
--- NOTE | 2018-11-29 14:02 | SIPON ---
Date/Time of Note Date/Time of Note DATE: 11/29/18 TIME: 14:01 Operative Report Preoperative Diagnosis Perforated gastric/duodenal ulcer Postoperative Diagnosis Same Operation/Procedure Performed Exploratory laparotomy abdominal washout repair of perforated gastric/duodenal ulcer and omental patch Surgeon see signature line seed laboratory assistant Dr Landeros Anesthesia: general Estimated blood loss: 100 - 150 ml's Transfusion Required none Specimen None Grafts/Implants none Complications none GILES LEWIS MD November 29, 2018 14:02
[2018-11-29] MEDS ORDERED: ROCURONIUM 50 MG INJ ONE (14:19)
[2018-11-29] MEDS ORDERED: ETOMIDATE 20 MG INJ ONE (14:19)
[2018-11-29] MEDS ORDERED: ONDANSETRON 4 MG INJ ONE (14:19)
[2018-11-29] MEDS ORDERED: PROPOFOL 20 ML ONE (14:19)
[2018-11-29] MEDS ORDERED: GLYCOPYRROLATE 0.4 MG INJ ONE (14:24)
[2018-11-29] MEDS ORDERED: NEOSTIGMINE 3 MG/3 ML SYRINGE ONE (14:24)
--- NOTE | 2018-11-29 14:30 | PN ---
Date/Time of Note Date/Time of Note DATE: 11/29/18 TIME: 14:24 Assessment/Plan VTE Prophylaxis Risk score (from Nsg)>0 risk: 1 SCD applied (from Nsg): Yes Pharmacological prophylaxis: other (scds) Lines/Catheters IV Catheter Type (from Nrsg): Peripheral IV Urinary Cath still in place: No Assessment/Plan Hospital Course Summary Assessment and Plan: Assessment: RUQ pain- imaging per records suspicious for PUD EGD 11/28/2018 Extensively ulcerated duodenal bulb with a deep ulceration with tunneling into axilla perforation or an adjacent organ 1.5 cm duodenal ulcer in the [place] duodenal bulb lumen Normal second portion of duodenum Severe erosive esophagitis. Rule out H. pylori infection, biopsies obtained Severe ulcerative esophagitis rule out Jana esophagitis, biopsies obtained Unintentional 50 lb weight loss- over the last 2 months Change in bowel habits- new onset Constipation Colonoscopy 11/28/2018 Essentially normal colonoscopy cecum Moderate-sized internal hemorrhoids Repeat colonoscopy in 10 years Urine toxicology: Noted for amphetamines, cocaine, opioids Hx of esophageal ulcers Current smoker 1/2 a day x [address] abd- Probable perforation of the stomach or duodenum with large volume pneumoperitoneum and moderate free fluid throughout the abdomen and pelvis and mesenteric stranding concerning for developing peritonitis. Plan Continue PPI, add Diflucan [address] abdomen with Gastrografin contrast was obtained Pt currently in surgery Patient seen in collaboration with Subjective: Pt off the floor in OR Exam: off the floor Result Diagram: 11/29/18 0455 11/29/18 0455 Results 24hrs Laboratory Tests Test 11/29/18 04:55 White Blood Count 22.1 H Red Blood Count 2.88 L Hemoglobin 8.5 L Hematocrit 25.3 L Mean Corpuscular Volume 87.8 Mean Corpuscular Hemoglobin 29.5 Mean Corpuscular Hemoglobin Concent 33.6 Red Cell Distribution Width 13.5 Platelet Count 409 Mean Platelet Volume 9.8 Immature Granulocytes % 2.600 H Neutrophils % 87.4 H Lymphocytes % 4.1 L Monocytes % 5.8 Eosinophils % 0.0 Basophils % 0.1 Nucleated Red Blood Cells % 0.0 Immature Granulocytes # 0.580 H Neutrophils # 19.3 H Lymphocytes # 0.9 Monocytes # 1.3 H Eosinophils # 0.0 Basophils # 0.0 Nucleated Red Blood Cells # 0.0 Sodium Level 131 L Potassium Level 4.3 Chloride Level 99 Carbon Dioxide Level 26 Anion Gap 6 Blood Urea Nitrogen 27 #H Creatinine 1.10 Est Glomerular Filtrat Rate mL/min > 60 Glucose Level 106 Calcium Level 8.1 L Exam/Review of Systems Exam Vitals Vital Signs Date Temp Pulse Resp B/P (MAP) Pulse Ox O2 O2 Flow FiO2 Time Delivery Rate 11/29/18 98.6 112 22 108/66 93 Room Air 10:50 (80) Intake and Output 11/28/18 11/28/18 11/29/18 1515:00 23:00 07:00 IntakeIntake Total 1280 ml 1960 ml OutputOutput Total 4 ml 1800 ml BalanceBalance 1276 ml 160 ml Results Results 24hrs Laboratory Tests Test 11/29/18 04:55 White Blood Count 22.1 H Red Blood Count 2.88 L Hemoglobin 8.5 L Hematocrit 25.3 L Mean Corpuscular Volume 87.8 Mean Corpuscular Hemoglobin 29.5 Mean Corpuscular Hemoglobin Concent 33.6 Red Cell Distribution Width 13.5 Platelet Count 409 Mean Platelet Volume 9.8 Immature Granulocytes % 2.600 H Neutrophils % 87.4 H Lymphocytes % 4.1 L Monocytes % 5.8 Eosinophils % 0.0 Basophils % 0.1 Nucleated Red Blood Cells % 0.0 Immature Granulocytes # 0.580 H Neutrophils # 19.3 H Lymphocytes # 0.9 Monocytes # 1.3 H Eosinophils # 0.0 Basophils # 0.0 Nucleated Red Blood Cells # 0.0 Sodium Level 131 L Potassium Level 4.3 Chloride Level 99 Carbon Dioxide Level 26 Anion Gap 6 Blood Urea Nitrogen 27 #H Creatinine 1.10 Est Glomerular Filtrat Rate mL/min > 60 Glucose Level 106 Calcium Level 8.1 L Medications Medication Current Medications IV Flush (NS 3 ml) 3 ml PER PROTOCOL IV ; Start 11/27/18 at 13:00 Hydromorphone HCl (Dilaudid) 0.5 mg Q4H PRN IV .SEVERE PAIN 7-10 Last admin istered on 11/29/18at 09:24; Admin Dose 0.5 MG; Start 11/27/18 at 13:00 Piperacillin Sod/ Tazobactam Sod 100 ml @ 200 mls/hr Q6 IVPB Last administered on 11/29/18at 09:04; Admin Dose 200 MLS/HR; Start 11/29/18 at 08:30 Acetaminophen (Tylenol Liquid) 650 mg Q4H PRN PO MILD PAIN(1-3)OR ELEVATED TEMP Last administered on 11/29/18at 09:04; Admin Dose 650 MG; Start 11/29/18 at 09:00 Pantoprazole (Protonix Iv) 40 mg DAILY@06 IV ; Start 11/30/18 at 06:00 Potassium Chloride/Dextrose/ Sod Cl 1,000 ml @ 150 mls/hr Q6H40M IV ; Start 11/29/18 at 14:02 ALIVIA GILES November 29, 2018 14:30
--- NOTE | 2018-11-29 14:46 | PAC ---
Date/Time of Note Date/Time of Note DATE: 11/29/18 TIME: 14:45 Post-Anesthesia Notes Post-Anesthesia Note Last documented vital signs Vital Signs Date Temp Pulse Resp B/P (MAP) Pulse Ox O2 O2 Flow FiO2 Time Delivery Rate 11/29/18 98.0 14:39 11/29/18 112 22 108/66 93 Room Air 10:50 (80) Activity: WNL Respiratory function: WNL Cardiovascular function: WNL Mental status: Baseline Pain reasonably controlled: Yes Hydration appropriate: Yes Nausea/Vomiting absent: Yes Comments BP:112/56, P:88, Spo2:100%, T:98,9 MEAGHAN YANES MD November 29, 2018 14:46
--- NOTE | 2018-11-29 14:47 | OPR ---
DATE OF OPERATION: 11/27/2018 PREOPERATIVE DIAGNOSIS: Perforated gastric/duodenal ulcer. POSTOPERATIVE DIAGNOSIS: Perforated gastric/duodenal ulcer. OPERATIONS PERFORMED: 1. Exploratory laparotomy. 2. Abdominal washout. 3. Repair of perforated gastric ulcer. 4. Omental patch. ANESTHESIA: General. ANESTHESIOLOGIST: Boom Khan MD SURGEON: Roc Obrien MD ASSISTANTS: 1. Mc Landeros MD 2. MELITA Escobedo INDICATIONS FOR PROCEDURE: The patient is a 43-year-old male who has a 2-month history of abdominal pain. He had previously been admitted to [facility] approximately 2 days ago. He apparently underwent an upper endoscopy, at which time a large perforation of the stomach right at th e gastric and duodenal junction was identified. I was called urgently from my office to see the faraz ent. I saw the patient immediately and counseled him that he needed to go directly to the OR. He co nsented and preparations were made and he was brought immediately to the preoperative area. DESCRIPTION OF PROCEDURE: The patient was then brought to the operating theater. An epidural cathet er was placed as well as a Aiken catheter. The patient was placed under general endotracheal tube an esthesia. The abdomen was prepped and draped in usual sterile fashion. An upper midline incision wa s made from the xiphoid to a point approximately 2 cm below the umbilicus. Subcutaneous tissue was d issected with cautery down to the anterior rectus sheath. The linea alba was then incised. The abdo men was entered without difficulty. Upon entering the abdomen, a copious amount of greenish, somewha t purulent or cloudy fluid was identified, at least 2 to 3 liters were evacuated using suction device. Irrigation took place with warm saline. The Bookwalter retractor was placed. Excellent exp osure was obtained. The omentum was adherent to the undersurface of the left lobe of the liver into the anterior wall of the stomach. It was gently dissected off, and the large perforation was identif ied. Dr. Obrien asked the anesthesiologist to advance the NG tube and using his gloved fingers, he gu ided the NG tube beyond the perforation into the first part of the duodenum. NG tube was then sewn i n place. Necrotic tissue was debrided from the edges of the perforation. The perforation was closed with multiple 2-0 Prolene sutures in interrupted fashion. An omental patch was then mobilized and f ashioned to keep it from being devascularized from its blood supply. The patch was then laid directl y over the repaired perforation and was tacked in place with multiple 2-0 chromic sutures. Copious i rrigation with, at least, 5 liters of warm saline took place in all 4 quadrants. A number 10-Thai Faisal-Basilio drain was then brought through the right abdominal wall. It was laid directly over the omental patch and gently tacked with chromic sutures to a portion of the falciform ligament, allowin g it to be in the space between the underside of the left lobe of the liver and the omental patch. I t was secured in place with 2-0 nylon suture in the standard fashion. At this point, lap, sponge, an d instrument counts were correct. The abdomen was closed with number 1 looped PDS sutures in running fashion and final skin approximation then took place with a deep dermal layer of 4-0 Vicryl sutures in interrupted fashion, followed by final skin approximation with 5-0 PDS sutures in subcuticular fas hion and Dermabond was then applied. The patient tolerated the procedure well. The estimated blood loss was approximately 100 mL. There were no complications. Te patient was transported in stable co ndition to the recovery room. Dictated By: ROC OBRIEN MD TL/HAYES Conf#: [id number] DID#: [id number] CC: NASEEM GILBERT MD;*EndCC*
--- NOTE | 2018-11-29 14:50 | PN ---
Date/Time of Note Date/Time of Note DATE: 11/29/18 TIME: 14:47 Assessment/Plan VTE Prophylaxis Risk score (from Nsg)>0 risk: 1 SCD applied (from Nsg): Yes Pharmacological prophylaxis: heparin Lines/Catheters IV Catheter Type (from Nrsg): Peripheral IV Urinary Cath still in place: No Assessment/Plan Hospital Course EXAM: Appears comfortable Sedated a bit but responsive Midline surgical incision c/d/i Drain RRR CTAB Soft nt nd Aiken 43 yo male with known PUD/H Pylori infection in the past, iron deficiency anemia, PSA presents with RUQ pain x 2 months with weight loss with imaging at outside hosptial showing duodenal ulcer, then with perforation and pneumoperitoneum. S/p ex lap with omental patch by Dr Obrien 11/29 Perforating duodenal ulceration with pneumoperitoneum s/p OR: - Continue PPI IV - Surgery consult - f/u pathology - Continue zosyn for now Tachycardia: - I suspect this is 2/2 pain and stimulant use - Monitor vitals JANETH vs CKD - trend creatinine, slightly improved with fluids. UA, US Result Diagram: 11/29/18 0455 11/29/18 0455 Results 24hrs Laboratory Tests Test 11/29/18 04:55 White Blood Count 22.1 H Red Blood Count 2.88 L Hemoglobin 8.5 L Hematocrit 25.3 L Mean Corpuscular Volume 87.8 Mean Corpuscular Hemoglobin 29.5 Mean Corpuscular Hemoglobin Concent 33.6 Red Cell Distribution Width 13.5 Platelet Count 409 Mean Platelet Volume 9.8 Immature Granulocytes % 2.600 H Neutrophils % 87.4 H Lymphocytes % 4.1 L Monocytes % 5.8 Eosinophils % 0.0 Basophils % 0.1 Nucleated Red Blood Cells % 0.0 Immature Granulocytes # 0.580 H Neutrophils # 19.3 H Lymphocytes # 0.9 Monocytes # 1.3 H Eosinophils # 0.0 Basophils # 0.0 Nucleated Red Blood Cells # 0.0 Sodium Level 131 L Potassium Level 4.3 Chloride Level 99 Carbon Dioxide Level 26 Anion Gap 6 Blood Urea Nitrogen 27 #H Creatinine 1.10 Est Glomerular Filtrat Rate mL/min > 60 Glucose Level 106 Calcium Level 8.1 L Subjective 24 Hr Interval Summary Free Text/Dictation Patient febrile, abx started CT resulted showing perforation and pneumoperitoneum Went to OR for ex lap with omental patch and washout. Now transferred to ICU Exam/Review of Systems Exam Vitals Vital Signs Date Temp Pulse Resp B/P (MAP) Pulse Ox O2 O2 Flow FiO2 Time Delivery Rate 11/29/18 98.0 14:39 11/29/18 112 22 108/66 93 Room Air 10:50 (80) Intake and Output 11/28/18 11/28/18 11/29/18 1515:00 23:00 07:00 IntakeIntake Total 1280 ml 1960 ml OutputOutput Total 4 ml 800 ml BalanceBalance 1276 ml 1160 ml Results Results 24hrs Laboratory Tests Test 11/29/18 04:55 White Blood Count 22.1 H Red Blood Count 2.88 L Hemoglobin 8.5 L Hematocrit 25.3 L Mean Corpuscular Volume 87.8 Mean Corpuscular Hemoglobin 29.5 Mean Corpuscular Hemoglobin Concent 33.6 Red Cell Distribution Width 13.5 Platelet Count 409 Mean Platelet Volume 9.8 Immature Granulocytes % 2.600 H Neutrophils % 87.4 H Lymphocytes % 4.1 L Monocytes % 5.8 Eosinophils % 0.0 Basophils % 0.1 Nucleated Red Blood Cells % 0.0 Immature Granulocytes # 0.580 H Neutrophils # 19.3 H Lymphocytes # 0.9 Monocytes # 1.3 H Eosinophils # 0.0 Basophils # 0.0 Nucleated Red Blood Cells # 0.0 Sodium Level 131 L Potassium Level 4.3 Chloride Level 99 Carbon Dioxide Level 26 Anion Gap 6 Blood Urea Nitrogen 27 #H Creatinine 1.10 Est Glomerular Filtrat Rate mL/min > 60 Glucose Level 106 Calcium Level 8.1 L Medications Medication Current Medications IV Flush (NS 3 ml) 3 ml PER PROTOCOL IV ; Start 11/27/18 at 13:00 Hydromorphone HCl (Dilaudid) 0.5 mg Q4H PRN IV .SEVERE PAIN 7-10 Last administered on 11/29/18at 09:24; Admin Dose 0.5 MG; Start 11/27/18 at 13:00 Piperacillin Sod/ Tazobactam Sod 100 ml @ 200 mls/hr Q6 IVPB Last administered on 11/29/18at 09:04; Admin Dose 200 MLS/HR; Start 11/29/18 at 08:30 Acetaminophen (Tylenol Liquid) 650 mg Q4H PRN PO MILD PAIN(1-3)OR ELEVATED TEMP Last administered on 11/29/18at 09:04; Admin Dose 650 MG; Start 11/29/18 at 09:00 Pantoprazole (Protonix Iv) 40 mg DAILY@06 IV ; Start 11/30/18 at 06:00 Potassium Chloride/Dextrose/ Sod Cl 1,000 ml @ 150 mls/hr Q6H40M IV ; Start 11/29/18 at 14:02 Morphine Sulfate (morphine (REC)) 2 mg PACU ORDER PRN IV MILD PAIN 1-3; Start 11/29/18 at 15:00; Stop 11/29/18 at 21:00 Morphine Sulfate (morphine (REC)) 4 mg PACU ORDER PRN IV MOD PAIN 4-6; Start 11/29/18 at 15:00; Stop 11/29/18 at 21:00 Fentanyl (Sublimaze) 25 mcg PACU ORDER PRN IV MILD PAIN 1-3; Start 11/29/18 at 15:00; Stop 11/29/18 at 21:00 Ondansetron HCl (Zofran Inj) 4 mg PACU ORDER PRN IV NAUSEA/VOMITING; Start 11/29/18 at 15:00; Stop 11/29/18 at 21:00 Meperidine HCl (Demerol) 25 mg PACU ORDER PRN IV .RIGORS; Start 11/29/18 at 15:00; Stop 11/29/18 at 21:00 Diphenhydramine HCl (Benadryl) 25 mg PACU ORDER PRN IV .PRURITUS; Start 11/29/18 at 15:00; Stop 11/29/18 at 21:00 Naloxone HCl (Narcan) 0.2 mg Q2M PRN IV .RESP RATE; Start 11/29/18 at 15:00; Status UNV Fentanyl/ Ropivacaine 100 ml EPIDURAL (PCEA) EPI ; Start 11/29/18 at 15:00; Status UNV NASEEM GILBERT MD November 29, 2018 14:50
[2018-11-29] MEDS ORDERED: DIPHENHYDRAMINE 50 MG INJ IV PRN (15:00)
[2018-11-29] MEDS ORDERED: ONDANSETRON 4 MG INJ IV PRN (15:00)
[2018-11-29] MEDS ORDERED: morphine (1 MG/ML) 10ML SYRINGE IV PRN ×2 (15:00)
[2018-11-29] MEDS ORDERED: FENTAnyl 2MCG/ML-ROPIV 0.2% 100 ML BAG EPI SCH (15:00)
[2018-11-29] MEDS ORDERED: MEPERIDINE 25 MG INJ IV PRN (15:00)
[2018-11-29] MEDS ORDERED: NALOXONE (0.4 MG/ML) INJ IV PRN (15:00)
[2018-11-29] MEDS ORDERED: FENTAnyl 50 MCG/ML VIAL IV PRN (15:00)
[2018-11-29] MEDS: D5W-0.45 NACL + KCL 20 MEQ 1,000 ML IV SCH ×2 (15:43→21:40)
[2018-11-29] MEDS: PIPER-TAZO 3.375 GM IV (PMX) 100 ML IVPB SCH ×2 (15:48→21:40)
[2018-11-29] MEDS ORDERED: HYDROmorphONE 1 MG/ML SYG IV PRN (18:30)
[2018-11-29] MEDS: FENTAnyl 2MCG/ML-ROPIV 0.2% 100 ML BAG EPI SCH (20:55)
[2018-11-30] VITALS (32 sets, daily range): BP systolic 104–143; BP diastolic 48–99; PULSE 108–124; RESP 18–36
[2018-11-30] MEDS: FENTAnyl 2MCG/ML-ROPIV 0.2% 100 ML BAG EPI SCH ×3 (02:53→18:27)
[2018-11-30] MEDS ORDERED: VANCOMYCIN IV PER PHARMACY XX SCH (04:00)
[2018-11-30] MEDS ORDERED: VANCOMYCIN HCL 1.75 GM in SOD CHLORIDE 0.9% 500 ML IVPB ONE (05:00)
[2018-11-30] MEDS: PIPER-TAZO 3.375 GM IV (PMX) 100 ML IVPB SCH ×4 (05:14→18:24)
[2018-11-30] MEDS ORDERED: PANTOPRAZOLE 40 MG INJ IV SCH (06:00)
--- NOTE | 2018-11-30 12:21 | OPPN ---
Date/Time of Note Date/Time of Note DATE: 11/30/18 TIME: 12:17 Anesthesia Follow up Anesthesia Follow up Last documented vital signs Vital Signs Date Temp Pulse Resp B/P (MAP) Pulse Ox O2 O2 Flow FiO2 Time Delivery Rate 11/30/18 114 28 137/83 97 Room Air 11:00 (101) 11/30/18 100.4 07:30 11/29/18 2.0 18:00 Respiratory function: WNL Cardiovascular function: WNL Comments Pt seen and examed. Pt comfortable, Epidural site dry. Epidural ropivacain 0.2% with fentanyl 0.2 running at 8ml/h with [employer] 4 ml with lock out 20 brittts MEAGHAN YANES MD November 30, 2018 12:21
--- NOTE | 2018-11-30 12:32 | PN ---
Date/Time of Note Date/Time of Note DATE: 11/30/18 TIME: 12:31 Assessment/Plan VTE Prophylaxis Risk score (from Nsg)>0 risk: 7 SCD applied (from Nsg): Yes Pharmacological prophylaxis: heparin Lines/Catheters IV Catheter Type (from Nrsg): Peripheral IV Urinary Cath still in place: Yes Reason Cath still needed: urinary retention Assessment/Plan Hospital Course EXAM: Comfortable Aox3 Midline surgical incision c/d/i Drain RRR CTAB Soft nt nd Aiken 43 yo male with known PUD/H Pylori infection in the past, iron deficiency anemia, PSA presents with RUQ pain x 2 months with weight loss with imaging at outside hosptial showing duodenal ulcer, then with perforation and pneumoperitoneum. S/p ex lap with omental patch by Dr Obrien 11/29 Perforating duodenal ulceration with pneumoperitoneum s/p OR: - Continue PPI IV - Dr Obrien surgeon - f/u pathology - Continue zosyn and vancomcyin for now for peritonitis JANETH vs CKD - resolved Result Diagram: 11/30/18 0429 11/30/18 0429 Results 24hrs Laboratory Tests Test 11/30/18 04:29 11/30/18 04:45 White Blood Count 14.1 #H Red Blood Count 2.94 L Hemoglobin 8.4 L Hematocrit 25.9 L Mean Corpuscular Volume 88.1 Mean Corpuscular Hemoglobin 28.6 L Mean Corpuscular Hemoglobin Concent 32.4 Red Cell Distribution Width 14.3 Platelet Count 476 H Mean Platelet Volume 10.2 Immature Granulocytes % 0.600 H Neutrophils % 82.6 H Lymphocytes % 6.1 L Monocytes % 10.3 Eosinophils % 0.2 Basophils % 0.2 Nucleated Red Blood Cells % 0.0 Immature Granulocytes # 0.080 H Neutrophils # 11.7 H Lymphocytes # 0.9 Monocytes # 1.5 H Eosinophils # 0.0 Basophils # 0.0 Nucleated Red Blood Cells # 0.0 Prothrombin Time 14.6 Prothrombin Time Ratio 1.1 INR International Normalized Ratio 1.13 Activated Partial Thromboplast Time 33.4 Sodium Level 135 Potassium Level 4.0 Chloride Level 104 Carbon Dioxide Level 24 Anion Gap 7 Blood Urea Nitrogen 16 # Creatinine 1.14 Est Glomerular Filtrat Rate mL/min > 60 Glucose Level 107 Calcium Level 8.4 Urine Color YELLOW Urine Clarity CLOUDY A Urine pH 5.0 Urine Specific [place] 1.023 Urine Ketones NEGATIVE Urine Nitrite NEGATIVE Urine Bilirubin NEGATIVE Urine Urobilinogen NEGATIVE Urine Leukocyte Esterase NEGATIVE Urine Microscopic RBC 0 Urine Microscopic WBC 0 Urine Bacteria FEW A Urine Hemoglobin 2+ H Urine Random Creatinine 165.35 Urine Random Sodium 34 Urine Glucose NEGATIVE Urine Total Protein 79.0 H Subjective 24 Hr Interval Summary Free Text/Dictation Paitent alert today, comfortable No flatus or BM yet Wnats ice chips Exam/Review of Systems Exam Vitals Vital Signs Date Temp Pulse Resp B/P (MAP) Pulse Ox O2 O2 Flow FiO2 Time Delivery Rate 11/30/18 99.3 12:24 11/30/18 112 26 126/75 96 Room Air 12:00 (92) 11/29/18 2.0 18:00 Intake and Output 11/29/18 11/29/18 11/30/18 1414:59 22:59 06:59 IntakeIntake Total 3105 ml 700 ml 1400 ml OutputOutput Total 1050 ml 945 ml 750 ml BalanceBalance 2055 ml -245 ml 650 ml Results Results 24hrs Laboratory Tests Test 11/30/18 04:29 11/30/18 04:45 White Blood Count 14.1 #H Red Blood Count 2.94 L Hemoglobin 8.4 L Hematocrit 25.9 L Mean Corpuscular Volume 88.1 Mean Corpuscular Hemoglobin 28.6 L Mean Corpuscular Hemoglobin Concent 32.4 Red Cell Distribution Width 14.3 Platelet Count 476 H Mean Platelet Volume 10.2 Immature Granulocytes % 0.600 H Neutrophils % 82.6 H Lymphocytes % 6.1 L Monocytes % 10.3 Eosinophils % 0.2 Basophils % 0.2 Nucleated Red Blood Cells % 0.0 Immature Granulocytes # 0.080 H Neutrophils # 11.7 H Lymphocytes # 0.9 Monocytes # 1.5 H Eosinophils # 0.0 Basophils # 0.0 Nucleated Red Blood Cells # 0.0 Prothrombin Time 14.6 Prothrombin Time Ratio 1.1 INR International Normalized Ratio 1.13 Activated Partial Thromboplast Time 33.4 Sodium Level 135 Potassium Level 4.0 Chloride Level 104 Carbon Dioxide Level 24 Anion Gap 7 Blood Urea Nitrogen 16 # Creatinine 1.14 Est Glomerular Filtrat Rate mL/min > 60 Glucose Level 107 Calcium Level 8.4 Urine Color YELLOW Urine Clarity CLOUDY A Urine pH 5.0 Urine Specific [place] 1.023 Urine Ketones NEGATIVE Urine Nitrite NEGATIVE Urine Bilirubin NEGATIVE Urine Urobilinogen NEGATIVE Urine Leukocyte Esterase NEGATIVE Urine Microscopic RBC 0 Urine Microscopic WBC 0 Urine Bacteria FEW A Urine Hemoglobin 2+ H Urine Random Creatinine 165.35 Urine Random Sodium 34 Urine Glucose NEGATIVE Urine Total Protein 79.0 H Medications Medication Current Medications Hydromorphone HCl (Dilaudid) 0.5 mg Q4H PRN IV .SEVERE PAIN 7-10 Last administered on 11/29/18at 15:53; Admin Dose 0.5 MG; Start 11/27/18 at 13:00 Acetaminophen (Tylenol Liquid) 650 mg Q4H PRN PO MILD PAIN(1-3)OR ELEVATED TEMP Last administered on 11/29/18 09:04; Admin Dose 650 MG; Start 11/29/18 at 09:00 Pantoprazole (Protonix Iv) 40 mg DAILY@06 IV Last administered on 11/30/18 05:17; Admin Dose 40 MG; Start 11/30/18 at 06:00 Potassium Chloride/Dextrose/ Sod Cl 1,000 ml @ 150 mls/hr Q6H40M IV Last administered on 11/29/18at 21:40; Admin Dose 150 MLS/HR; Start 11/29/18 at 14:02 Naloxone HCl (Narcan) 0.2 mg Q2M PRN IV .RESP RATE; Start 11/29/18 at 15:00 Fentanyl/ Ropivacaine 100 ml EPIDURAL (PCEA) EPI Last administered on 11/30/18at 09:50; Admin Dose 100 ML; Start 11/29/18 at 15:00 Piperacillin Sod/ Tazobactam Sod 100 ml @ 200 mls/hr Q6 IVPB Last administered on 11/30/18at 12:22; Admin Dose 200 MLS/HR; Start 11/29/18 at 15:30 Hydromorphone HCl (Dilaudid) 1 mg Q2H PRN IV SEVERE PAIN LEVEL 7-10 Last administered on 11/29/18at 18:40; Admin Dose 1 MG; Start 11/29/18 at 18:30 Vancomycin HCl (Vanco Iv Per Pharmacy) VANCOMYCIN PER PHARMACY PER PROTOCOL XX ; Start 11/30/18 at 04:00 Vancomycin HCl 1.25 gm/Sodium Chloride 250 ml @ 83.333 mls/ hr Q12H IVPB ; Start 12/01/18 at 18:00 NASEEM GILBERT MD November 30, 2018 12:32
--- NOTE | 2018-11-30 14:18 | PN ---
Date/Time of Note Date/Time of Note DATE: 11/30/18 TIME: 14:06 Assessment/Plan VTE Prophylaxis Risk score (from Nsg)>0 risk: 7 SCD applied (from Nsg): Yes Pharmacological prophylaxis: other (scds) Lines/Catheters IV Catheter Type (from Nrsg): Peripheral IV Urinary Cath still in place: Yes Reason Cath still needed: other (indicate) (monitor output) Assessment/Plan Hospital Course Summary Assessment and Plan: Assessment: RUQ pain- imaging per records suspicious for PUD EGD 11/28/2018 Extensively ulcerated duodenal bulb with a deep ulceration with tunneling into axilla perforation or an adjacent organ 1.5 cm duodenal ulcer in the [place] duodenal bulb lumen Normal second portion of duodenum Severe erosive esophagitis. Rule out H. pylori infection, biopsies obtained- bx neg for H.pylori Severe ulcerative esophagitis rule out Jana esophagitis, biopsies obtained- bx neg for fungal infection Unintentional 50 lb weight loss- over the last 2 months Change in bowel habits- new onset Constipation Colonoscopy 11/28/2018 Essentially normal colonoscopy cecum Moderate-sized internal hemorrhoids Repeat colonoscopy in 10 years Urine toxicology: Noted for amphetamines, cocaine, opioids Hx of esophageal ulcers Current smoker 1/2 a day x [address] abd- Probable perforation of the stomach or duodenum with large volume pneumoperitoneum and moderate free fluid throughout the abdomen and pelvis and mesenteric stranding concerning for developing peritonitis. S/p 11/29/18 Exploratory laparotomy. Repair of perforated gastric ulcer. Omental patch. Plan Diet per surgery Bx reviewed,neg for fungal or h. pylori infections- continue PPI BID Patient seen in collaboration with Subjective: Patient remains ICU, patient states he feels well post surgery currently has NG tube in place to suction. No overnight events he does complain of surgical pain to be expected overall though he states he feels much better. Exam: PHYSICAL EXAMINATION: GENERAL: A&O x3, NAD SKIN: Surgical incisions HEAD: Normocephalic, atraumatic, no tenderness. EYES: Pupils equal reactive to light, no discharge. EARS/NOSE AND THROAT: Ears normal, nose normal, oropharynx normal. NECK: Supple, no masses. CHEST: Inspection within normal limits. CARDIOVASCULAR: Heart: Regular rate and rhythm RESPIRATORY: Lungs clear to auscultation GASTROINTESTINAL AND LIVER: Abdomen: Soft, surgical tenderness, hypoactive bowel sounds. Rectal: Deferred. EXTREMITIES: No cyanosis, clubbing or edema. Result Diagram: 11/30/18 0429 11/30/18 0429 Results 24hrs Laboratory Tests Test 11/30/18 04:29 11/30/18 04:45 White Blood Count 14.1 #H Red Blood Count 2.94 L Hemoglobin 8.4 L Hematocrit 25.9 L Mean Corpuscular Volume 88.1 Mean Corpuscular Hemoglobin 28.6 L Mean Corpuscular Hemoglobin Concent 32.4 Red Cell Distribution Width 14.3 Platelet Count 476 H Mean Platelet Volume 10.2 Immature Granulocytes % 0.600 H Neutrophils % 82.6 H Lymphocytes % 6.1 L Monocytes % 10.3 Eosinophils % 0.2 Basophils % 0.2 Nucleated Red Blood Cells % 0.0 Immature Granulocytes # 0.080 H Neutrophils # 11.7 H Lymphocytes # 0.9 Monocytes # 1.5 H Eosinophils # 0.0 Basophils # 0.0 Nucleated Red Blood Cells # 0.0 Prothrombin Time 14.6 Prothrombin Time Ratio 1.1 INR International Normalized Ratio 1.13 Activated Partial Thromboplast Time 33.4 Sodium Level 135 Potassium Level 4.0 Chloride Level 104 Carbon Dioxide Level 24 Anion Gap 7 Blood Urea Nitrogen 16 # Creatinine 1.14 Est Glomerular Filtrat Rate mL/min > 60 Glucose Level 107 Calcium Level 8.4 Urine Color YELLOW Urine Clarity CLOUDY A Urine pH 5.0 Urine Specific [place] 1.023 Urine Ketones NEGATIVE Urine Nitrite NEGATIVE Urine Bilirubin NEGATIVE Urine Urobilinogen NEGATIVE Urine Leukocyte Esterase NEGATIVE Urine Microscopic RBC 0 Urine Microscopic WBC 0 Urine Bacteria FEW A Urine Hemoglobin 2+ H Urine Random Creatinine 165.35 Urine Random Sodium 34 Urine Glucose NEGATIVE Urine Total Protein 79.0 H Exam/Review of Systems Exam Vitals Vital Signs Date Temp Pulse Resp B/P (MAP) Pulse Ox O2 O2 Flow FiO2 Time Delivery Rate 11/30/18 99.3 12:24 11/30/18 112 26 126/75 96 Room Air 12:00 (92) 11/29/18 2.0 18:00 Intake and Output 11/29/18 11/29/18 11/30/18 1515:00 23:00 07:00 IntakeIntake Total 3105 ml 850 ml 1250 ml OutputOutput Total 1050 ml 1105 ml 590 ml BalanceBalance 2055 ml -255 ml 660 ml Results Results 24hrs Laboratory Tests Test 11/30/18 04:29 11/30/18 04:45 White Blood Count 14.1 #H Red Blood Count 2.94 L Hemoglobin 8.4 L Hematocrit 25.9 L Mean Corpuscular Volume 88.1 Mean Corpuscular Hemoglobin 28.6 L Mean Corpuscular Hemoglobin Concent 32.4 Red Cell Distribution Width 14.3 Platelet Count 476 H Mean Platelet Volume 10.2 Immature Granulocytes % 0.600 H Neutrophils % 82.6 H Lymphocytes % 6.1 L Monocytes % 10.3 Eosinophils % 0.2 Basophils % 0.2 Nucleated Red Blood Cells % 0.0 Immature Granulocytes # 0.080 H Neutrophils # 11.7 H Lymphocytes # 0.9 Monocytes # 1.5 H Eosinophils # 0.0 Basophils # 0.0 Nucleated Red Blood Cells # 0.0 Prothrombin Time 14.6 Prothrombin Time Ratio 1.1 INR International Normalized Ratio 1.13 Activated Partial Thromboplast Time 33.4 Sodium Level 135 Potassium Level 4.0 Chloride Level 104 Carbon Dioxide Level 24 Anion Gap 7 Blood Urea Nitrogen 16 # Creatinine 1.14 Est Glomerular Filtrat Rate mL/min > 60 Glucose Level 107 Calcium Level 8.4 Urine Color YELLOW Urine Clarity CLOUDY A Urine pH 5.0 Urine Specific [place] 1.023 Urine Ketones NEGATIVE Urine Nitrite NEGATIVE Urine Bilirubin NEGATIVE Urine Urobilinogen NEGATIVE Urine Leukocyte Esterase NEGATIVE Urine Microscopic RBC 0 Urine Microscopic WBC 0 Urine Bacteria FEW A Urine Hemoglobin 2+ H Urine Random Creatinine 165.35 Urine Random Sodium 34 Urine Glucose NEGATIVE Urine Total Protein 79.0 H Medications Medication Current Medications Hydromorphone HCl (Dilaudid) 0.5 mg Q4H PRN IV .SEVERE PAIN 7-10 Last administered on 11/29/18at 15:53; Admin Dose 0.5 MG; Start 11/27/18 at 13:00 Acetaminophen (Tylenol Liquid) 650 mg Q4H PRN PO MILD PAIN(1-3)OR ELEVATED TEMP Last administered on 11/29/18at 09:04; Admin Dose 650 MG; Start 11/29/18 at 09:00 Pantoprazole (Protonix Iv) 40 mg DAILY@06 IV Last administered on 11/30/18at 05:17; Admin Dose 40 MG; Start 11/30/18 at 06:00 Potassium Chloride/Dextrose/ Sod Cl 1,000 ml @ 150 mls/hr Q6H40M IV Last administered on 11/29/18at 21:40; Admin Dose 150 MLS/HR; Start 11/29/18 at 14:02 Naloxone HCl (Narcan) 0.2 mg Q2M PRN IV .RESP RATE; Start 11/29/18 at 15:00 Fentanyl/ Ropivacaine 100 ml EPIDURAL (PCEA) EPI Last administered on 11/30/18at 09:50; Admin Dose 100 ML; Start 11/29/18 at 15:00 Piperacillin Sod/ Tazobactam Sod 100 ml @ 200 mls/hr Q6 IVPB Last administered on 11/30/18at 12:22; Admin Dose 200 MLS/HR; Start 11/29/18 at 15:30 Hydromorphone HCl (Dilaudid) 1 mg Q2H PRN IV SEVERE PAIN LEVEL 7-10 Last administered on 11/29/18at 18:40; Admin Dose 1 MG; Start 11/29/18 at 18:30 Vancomycin HCl (Vanco Iv Per Pharmacy) VANCOMYCIN PER PHARMACY PER PROTOCOL XX ; Start 11/30/18 at 04:00 Vancomycin HCl 1.25 gm/Sodium Chloride 250 ml @ 83.333 mls/ hr Q12H IVPB ; S tart 12/01/18 at 18:00 ALIVIA GILES November 30, 2018 14:17
[2018-11-30] MEDS ORDERED: FLUCONAZOLE 200 MG (PMX) 100 ML IVPB SCH (15:00)
[2018-11-30] MEDS: D5W-0.45 NACL + KCL 20 MEQ 1,000 ML IV SCH ×4 (15:15→23:22)
--- NOTE | 2018-11-30 18:52 | PN ---
DATE: 11/30/2018 Postop day #1 status post exploratory laparotomy, closure of the perforation of the gastric or duodenal ulcer and Merritt patch. SUBJECTIVE: Feels better. OBJECTIVE: GENERAL: Awake, alert, oriented x3. VITAL SIGNS: Temperature maximum today 102.1, heart rate 108 respiratory rate fluctuating between 20 and 26, blood pressure 126/75, saturation 96% on room air. HEART: Regular. LUNGS: Decreased breathing sound at bases. ABDOMEN: Soft, slightly tender all over. Nondistended. NG tube is in place, manipulated on the machine, it was connected to intermittent suction and made sure that it is functioning, put it on suction pressure 50 mmHg intermittent suction. EXTREMITIES: SCDs in place. LABORATORY DATA: WBC 14,000 with 82% segmented, hemoglobin 8.4, hematocrit 25.9. Platelet 476. Chemistry: Sodium, potassium normal. BUN 16, creatinine 1.14. Clotting factors, INR 1.13. Urine total protein 79, which is high. Urine output past 24 hours 2590. Faisal-Basilio drain in the right upper quadrant in the past 24 hours has drained 105 mL serosanguineous. The patient on antibiotics with Zosyn and Vancomycin. ASSESSMENT: Postop day #1, the patient is stable. Urine function is improving. The patient is using incentive spirometry and SCDs. PLAN: Continue current care. Dictated By: BETH CASTANON MD PS/HAYES Conf#: [id number] DID#: [id number] MTDD
[2018-11-30] MEDS: PANTOPRAZOLE 40 MG INJ IV SCH (21:20)
[2018-11-30] MEDS: VANCOMYCIN HCL 1.25 GM in SOD CHLORIDE 0.9% 250 ML IVPB SCH (22:42)
[2018-12-01] VITALS (38 sets, daily range): BP systolic 102–139; BP diastolic 57–97; PULSE 98–115; RESP 20–34
[2018-12-01] MEDS: PIPER-TAZO 3.375 GM IV (PMX) 100 ML IVPB SCH ×5 (00:53→23:44)
[2018-12-01] MEDS: FENTAnyl 2MCG/ML-ROPIV 0.2% 100 ML BAG EPI SCH ×3 (01:37→20:54)
[2018-12-01] MEDS: D5W-0.45 NACL + KCL 20 MEQ 1,000 ML IV SCH ×4 (01:47→23:44)
[2018-12-01] MEDS: VANCOMYCIN HCL 1.25 GM in SOD CHLORIDE 0.9% 250 ML IVPB SCH (08:36)
[2018-12-01] MEDS: PANTOPRAZOLE 40 MG INJ IV SCH ×2 (08:36→20:34)
--- NOTE | 2018-12-01 13:51 | OPPN ---
Date/Time of Note Date/Time of Note DATE: 12/01/18 TIME: 13:48 Anesthesia Follow up Anesthesia Follow up Last documented vital signs Vital Signs Date Temp Pulse Resp B/P (MAP) Pulse Ox O2 O2 Flow FiO2 Time Delivery Rate 12/01/18 115 29 116/80 11:30 (92) 12/01/18 99 Room Air 11:00 12/01/18 98.1 08:00 11/29/18 2.0 18:00 Respiratory function: WNL Cardiovascular function: WNL Comments Pr seen and examed. Pt is comfortable. Epidural in situ, site dry, running 8 at ml/h. MEAGHAN YANES MD December 01, 2018 13:51
--- NOTE | 2018-12-01 15:06 | PN ---
Date/Time of Note Date/Time of Note DATE: 12/01/18 TIME: 15:05 Assessment/Plan VTE Prophylaxis Risk score (from Nsg)>0 risk: 8 SCD applied (from Nsg): Yes Pharmacological prophylaxis: heparin Lines/Catheters IV Catheter Type (from Nrsg): Peripheral IV Central line still needed: Yes Urinary Cath still in place: Yes Reason Cath still needed: urinary retention Assessment/Plan Hospital Course EXAM: Comfortable Aox3 Midline surgical incision c/d/i Drain RRR CTAB Soft nt nd Aiken 43 yo male with known PUD/H Pylori infection in the past, iron deficiency anemia, PSA presents with RUQ pain x 2 months with weight loss with imaging at outside hosptial showing duodenal ulcer, then with perforation and pneumoperitoneum. S/p ex lap with omental patch by Dr Obrien 11/29 Perforating gastric/duodenal ulcer with pneumoperitoneum s/p OR: - Continue PPI IV - Dr Obrien surgeon - Continue zosyn and vancomcyin for now for peritonitis - NG tube to suction - Perioperative care per surgery JANETH - resolved Result Diagram: 12/01/1892612/01/1827 Results 24hrs Laboratory Tests Test 12/01/18 09:27 White Blood Count 12.1 H Red Blood Count 2.70 L Hemoglobin 7.7 L Hematocrit 23.6 L Mean Corpuscular Volume 87.4 Mean Corpuscular Hemoglobin 28.5 L Mean Corpuscular Hemoglobin Concent 32.6 Red Cell Distribution Width 14.4 Platelet Count 479 H Mean Platelet Volume 9.3 Immature Granulocytes % 0.400 Neutrophils % 72.7 Lymphocytes % 10.5 L Monocytes % 14.7 H Eosinophils % 1.5 Basophils % 0.2 Nucleated Red Blood Cells % 0.0 Immature Granulocytes # 0.050 H Neutrophils # 8.8 H Lymphocytes # 1.3 Monocytes # 1.8 H Eosinophils # 0.2 Basophils # 0.0 Nucleated Red Blood Cells # 0.0 Prothrombin Time 14.7 Prothrombin Time Ratio 1.1 INR International Normalized Ratio 1.14 Activated Partial Thromboplast Time 40.6 H Sodium Level 136 Potassium Level 3.7 Chloride Level 104 Carbon Dioxide Level 25 Anion Gap 7 Blood Urea Nitrogen 8 Creatinine 0.93 Est Glomerular Filtrat Rate mL/min > 60 Glucose Level 113 Calcium Level 8.0 L Subjective 24 Hr Interval Summary Free Text/Dictation He has passed flatus Still with epidural. Pain is controlled Fever overnight. vancomycin added Exam/Review of Systems Exam Vitals Vital Signs Date Temp Pulse Resp B/P (MAP) Pulse Ox O2 O2 Flow FiO2 Time Delivery Rate 12/01/18 25 14:09 12/01/18 105 118/76 97 Room Air 14:00 (90) 12/01/18 99.7 12:00 11/29/18 2.0 18:00 Intake and Output 11/30/18 11/30/18 12/01/18 1515:00 23:00 07:00 IntakeIntake Total 600 ml 1151 ml 1214.000 ml OutputOutput Total 580 ml 930 ml 2245 ml BalanceBalance 20 ml 221 ml -1031.000 ml Results Results 24hrs Laboratory Tests Test 12/01/18 09:27 White Blood Count 12.1 H Red Blood Count 2.70 L Hemoglobin 7.7 L Hematocrit 23.6 L Mean Corpuscular Volume 87.4 Mean Corpuscular Hemoglobin 28.5 L Mean Corpuscular Hemoglobin Concent 32.6 Red Cell Distribution Width 14.4 Platelet Count 479 H Mean Platelet Volume 9.3 Immature Granulocytes % 0.400 Neutrophils % 72.7 Lymphocytes % 10.5 L Monocytes % 14.7 H Eosinophils % 1.5 Basophils % 0.2 Nucleated Red Blood Cells % 0.0 Immature Granulocytes # 0.050 H Neutrophils # 8.8 H Lymphocytes # 1.3 Monocytes # 1.8 H Eosinophils # 0.2 Basophils # 0.0 Nucleated Red Blood Cells # 0.0 Prothrombin Time 14.7 Prothrombin Time Ratio 1.1 INR International Normalized Ratio 1.14 Activated Partial Thromboplast Time 40.6 H Sodium Level 136 Potassium Level 3.7 Chloride Level 104 Carbon Dioxide Level 25 Anion Gap 7 Blood Urea Nitrogen 8 Creatinine 0.93 Est Glomerular Filtrat Rate mL/min > 60 Glucose Level 113 Calcium Level 8.0 L Medications Medication Current Medications Hydromorphone HCl (Dilaudid) 0.5 mg Q4H PRN IV .SEVERE PAIN 7-10 Last administered on 11/29/18at 15:53; Admin Dose 0.5 MG; Start 11/27/18 at 13:00 Acetaminophen (Tylenol Liquid) 650 mg Q4H PRN PO MILD PAIN(1-3)OR ELEVATED TEMP Last administered on 11/29/18at 09:04; Admin Dose 650 MG; Start 11/29/18 at 09:00 Potassium Chloride/Dextrose/ Sod Cl 1,000 ml @ 150 mls/hr Q6H40M IV Last administered on 12/01/18 08:36; Admin Dose 150 MLS/HR; Start 11/29/18 at 14:02 Naloxone HCl (Narcan) 0.2 mg Q2M PRN IV .RESP RATE; Start 11/29/18 at 15:00 Fentanyl/ Ropivacaine 100 ml EPIDURAL (PCEA) EPI Last administered on 12/01/18 10:03; Admin Dose 100 ML; Start 11/29/18 at 15:00 Piperacillin Sod/ Tazobactam Sod 100 ml @ 200 mls/hr Q6 IVPB Last administered on 12/01/18 12:44; Admin Dose 200 MLS/HR; Start 11/29/18 at 15:30 Hydromorphone HCl (Dilaudid) 1 mg Q2H PRN IV SEVERE PAIN LEVEL 7-10 Last administered on 11/29/18 18:40; Admin Dose 1 MG; Start 11/29/18 at 18:30 Vancomycin HCl (Vanco Iv Per Pharmacy) VANCOMYCIN PER PHARMACY PER PROTOCOL XX ; Start 11/30/18 at 04:00 Vancomycin HCl 1.25 gm/Sodium Chloride 250 ml @ 83.333 mls/ hr Q12H IVPB Last administered on 12/01/18 08:36; Admin Dose 83.333 MLS/HR; Start 11/30/18 at 21:00 Miscellaneous Information (*Rx Drug Level Order Reminder*) VANCO TR LEVEL PRIOR... 1700 ONCE XX ; Start 12/01/18 at 17:00; Stop 12/01/18 at 17:01 Pantoprazole (Protonix Iv) 40 mg BID IV Last administered on 12/01/18 08:36; A dmin Dose 40 MG; Start 11/30/18 at 21:00 NASEEM GILBERT MD December 01, 2018 15:06
--- NOTE | 2018-12-01 15:07 | PN ---
Date/Time of Note Date/Time of Note DATE: 12/01/18 TIME: 15:04 Assessment/Plan VTE Prophylaxis Risk score (from Ns)>0 risk: 8 SCD applied (from Ns): Yes Pharmacological prophylaxis: NA/contraindicated Pharm contraindication: bleeding Lines/Catheters IV Catheter Type (from Nrsg): Peripheral IV Urinary Cath still in place: Yes Reason Cath still needed: other (indicate) Assessment/Plan Assessment/Plan Assessment: RUQ pain- imaging per records suspicious for PUD EGD 11/28/2018 Extensively ulcerated duodenal bulb with a deep ulceration with tunneling into axilla perforation or an adjacent organ 1.5 cm duodenal ulcer in the [place] duodenal bulb lumen Normal second portion of duodenum Severe erosive esophagitis. Rule out H. pylori infection, biopsies obtained- bx neg for H.pylori Severe ulcerative esophagitis rule out Jana esophagitis, biopsies obtained- bx neg for fungal infection Unintentional 50 lb weight loss- over the last 2 months Change in bowel habits- new onset Constipation Colonoscopy 11/28/2018 Essentially normal colonoscopy cecum Moderate-sized internal hemorrhoids Repeat colonoscopy in 10 years Urine toxicology: Noted for amphetamines, cocaine, opioids Hx of esophageal ulcers Current smoker 1/2 a day x [address] abd- Probable perforation of the stomach or duodenum with large volume pneumoperitoneum and moderate free fluid throughout the abdomen and pelvis and mesenteric stranding concerning for developing peritonitis. S/p 11/29/18 Exploratory laparotomy. Repair of perforated gastric ulcer. Omental patch. Plan Diet per surgery Bx reviewed,neg for fungal or h. pylori infections- continue PPI BID GI will sign off at this time Patient seen in collaboration with Subjective: Patient remains ICU, complaining of abdominal pain post surgery NG tube in place to suction. No overnight events. White blood count is trending down. Hemoglobin is trending down. 7.7 today. No signs of overt GI bleeding. No bowel movement today. With no further recommendations GI will sign off and will be available to reconsult upon request Exam: PHYSICAL EXAMINATION: GENERAL: A&O x3, NAD SKIN: Abdominal surgical incisions HEAD: Normocephalic, atraumatic, no tenderness. EYES: Pupils equal reactive to light, no discharge. EARS/NOSE AND THROAT: Ears normal, nose normal, oropharynx normal. NECK: Supple, no masses. CHEST: Inspection within normal limits. CARDIOVASCULAR: Heart: Regular rate and rhythm RESPIRATORY: Lungs clear to auscultation GASTROINTESTINAL AND LIVER: Abdomen: Soft, surgical tenderness, hypoactive bowel sounds. Rectal: Deferred. EXTREMITIES: No cyanosis, clubbing or edema. Result Diagram: 12/01/1827 12/01/1827 Results 24hrs Laboratory Tests Test 12/01/18 09:27 White Blood Count 12.1 H Red Blood Count 2.70 L Hemoglobin 7.7 L Hematocrit 23.6 L Mean Corpuscular Volume 87.4 Mean Corpuscular Hemoglobin 28.5 L Mean Corpuscular Hemoglobin Concent 32.6 Red Cell Distribution Width 14.4 Platelet Count 479 H Mean Platelet Volume 9.3 Immature Granulocytes % 0.400 Neutrophils % 72.7 Lymphocytes % 10.5 L Monocytes % 14.7 H Eosinophils % 1.5 Basophils % 0.2 Nucleated Red Blood Cells % 0.0 Immature Granulocytes # 0.050 H Neutrophils # 8.8 H Lymphocytes # 1.3 Monocytes # 1.8 H Eosinophils # 0.2 Basophils # 0.0 Nucleated Red Blood Cells # 0.0 Prothrombin Time 14.7 Prothrombin Time Ratio 1.1 INR International Normalized Ratio 1.14 Activated Partial Thromboplast Time 40.6 H Sodium Level 136 Potassium Level 3.7 Chloride Level 104 Carbon Dioxide Level 25 Anion Gap 7 Blood Urea Nitrogen 8 Creatinine 0.93 Est Glomerular Filtrat Rate mL/min > 60 Glucose Level 113 Calcium Level 8.0 L CC: ILANA JOSHUA MD ; Exam/Review of Systems Exam Vitals Vital Signs Date Temp Pulse Resp B/P (MAP) Pulse Ox O2 O2 Flow FiO2 Time Delivery Rate 12/01/18 25 14:09 12/01/18 105 118/76 97 Room Air 14:00 (90) 12/01/18 99.7 12:00 11/29/18 2.0 18:00 Intake and Output 11/30/18 11/30/18 12/01/18 1515:00 23:00 07:00 IntakeIntake Total 600 ml 1151 ml 1214.000 ml OutputOutput Total 580 ml 930 ml 2245 ml BalanceBalance 20 ml 221 ml -1031.000 ml Results Results 24hrs Laboratory Tests Test 12/01/18 09:27 White Blood Count 12.1 H Red Blood Count 2.70 L Hemoglobin 7.7 L Hematocrit 23.6 L Mean Corpuscular Volume 87.4 Mean Corpuscular Hemoglobin 28.5 L Mean Corpuscular Hemoglobin Concent 32.6 Red Cell Distribution Width 14.4 Platelet Count 479 H Mean Platelet Volume 9.3 Immature Granulocytes % 0.400 Neutrophils % 72.7 Lymphocytes % 10.5 L Monocytes % 14.7 H Eosinophils % 1.5 Basophils % 0.2 Nucleated Red Blood Cells % 0.0 Immature Granulocytes # 0.050 H Neutrophils # 8.8 H Lymphocytes # 1.3 Monocytes # 1.8 H Eosinophils # 0.2 Basophils # 0.0 Nucleated Red Blood Cells # 0.0 Prothrombin Time 14.7 Prothrombin Time Ratio 1.1 INR International Normalized Ratio 1.14 Activated Partial Thromboplast Time 40.6 H Sodium Level 136 Potassium Level 3.7 Chloride Level 104 Carbon Dioxide Level 25 Anion Gap 7 Blood Urea Nitrogen 8 Creatinine 0.93 Est Glomerular Filtrat Rate mL/min > 60 Glucose Level 113 Calcium Level 8.0 L Medications Medication Current Medications Hydromorphone HCl (Dilaudid) 0.5 mg Q4H PRN IV .SEVERE PAIN 7-10 Last administered on 11/29/18 15:53; Admin Dose 0.5 MG; Start 11/27/18 at 13:00 Acetaminophen (Tylenol Liquid) 650 mg Q4H PRN PO MILD PAIN(1-3)OR ELEVATED TEMP Last administered on 11/29/18 09:04; Admin Dose 650 MG; Start 11/29/18 at 09:00 Potassium Chloride/Dextrose/ Sod Cl 1,000 ml @ 150 mls/hr Q6H40M IV Last administered on 12/01/18 08:36; Admin Dose 150 MLS/HR; Start 11/29/18 at 14:02 Naloxone HCl (Narcan) 0.2 mg Q2M PRN IV .RESP RATE; Start 11/29/18 at 15:00 Fentanyl/ Ropivacaine 100 ml EPIDURAL (PCEA) EPI Last administered on 12/01/18 10:03; Admin Dose 100 ML; Start 11/29/18 at 15:00 Piperacillin Sod/ Tazobactam Sod 100 ml @ 200 mls/hr Q6 IVPB Last administered on 12/01/18 12:44; Admin Dose 200 MLS/HR; Start 11/29/18 at 15:30 Hydromorphone HCl (Dilaudid) 1 mg Q2H PRN IV SEVERE PAIN LEVEL 7-10 Last administered on 11/29/18at 18:40; Admin Dose 1 MG; Start 11/29/18 at 18:30 Vancomycin HCl (Vanco Iv Per Pharmacy) VANCOMYCIN PER PHARMACY PER PROTOCOL XX ; Start 11/30/18 at 04:00 Vancomycin HCl 1.25 gm/Sodium Chloride 250 ml @ 83.333 mls/ hr Q12H IVPB Last administered on 12/01/18at 08:36; Admin Dose 83.333 MLS/HR; Start 11/30/18 at 21:00 Miscellaneous Information (*Rx Drug Level Order Reminder*) VANCO TR LEVEL PRIOR... 1700 ONCE XX ; Start 12/01/18 at 17:00; Stop 12/01/18 at 17:01 Pantoprazole (Protonix Iv) 40 mg BID IV Last administered on 12/01/18at 08:36; Admin Dose 40 MG; Start 11/30/18 at 21:00 GLADIS GLOVER NP December 01, 2018 15:07
--- NOTE | 2018-12-01 18:02 | PN ---
DATE: 12/01/2018 Postop day #2 status post diagnostic exploratory laparotomy, closure of the perforation of the distal stomach or pylorus area which has been there, probably for a long time, due to duodenal or gastric u lcer. SUBJECTIVE: No specific complaint. OBJECTIVE: GENERAL: The patient is awake, alert and oriented x3, was sitting on the chair actually with help fr om physical therapy. Now, they are trying to put him back on the bed. VITAL SIGNS: Temperature maximum today 99.6, heart rate 105, respiration 26, blood pressure 118/76, saturation 97% room air. LOWER EXTREMITIES: No calf tenderness. No pitting edema. LABORATORY DATA: WBC 12,100 with 72% neutrophils. Hemoglobin 7.7, hematocrit 23.6, platelet 479. C hemistry: Sodium 136, potassium 3.7, BUN 8, creatinine 0.93. I and O's: Urine in past 24 hours, to demetria 2220 mL. The patient has 1 Faisal-Basilio drain which is located subhepatic on the right side. I t has drained 60 mL of serosanguineous fluid in the past 24 hours. NG tube in past 24 hours has drai kimber 1400 mL. The color is greenish now and from 6:00 a.m. until 1:00 p.m., has drained about 400 mL today. The patient states that has passed a slight amount of gas per rectum. ASSESSMENT: This is a 43-year-old male who has had right upper quadrant abdominal pain for about 2 m onths' duration, which occurred almost certainly about 2 months ago when he was in [place] and has not been able to eat and has been vomiting most of the time and has lost 60 pounds, so he came here to the emergency room on 11/27/2018, was evaluated. Since the patient gives history of duodenal ulce r, GI colleague consultation was requested. They did endoscopy and they found presence of the ulcer, some are in the first portion of the duodenum. So surgical consultation was requested and a CT scan which was on the same day revealed that there is free air and fluid in the right upper quadrant and thickening of the wall of the stomach wall and small bowel wall in this area, so with the impression of perforated duodenal or gastric ulcer, this patient was taken to the OR by Dr. Obrien. As the perfo rated ulcer was found, it was repaired and Merritt patch was placed. Now, the patient is stable so fa r, postop day #2. PLAN: Continue to keep the NG tube connected to intermittent suction. Continue Aiken catheter. Con tinue IV fluid. I was wondering that maybe we have to start patient on TPN. We discussed with the i nternal medicine people. Continue antibiotics. Dictated By: BETH CASTANON MD PS/NTS Conf#: [id number] DID#: [id number]
[2018-12-01] MEDS: VANCOMYCIN HCL 1.5 GM in SOD CHLORIDE 0.9% 250 ML IVPB SCH (20:35)
[2018-12-02] VITALS (45 sets, daily range): BP systolic 106–145; BP diastolic 56–102; PULSE 101–117; RESP 13–36
[2018-12-02] MEDS: PIPER-TAZO 3.375 GM IV (PMX) 100 ML IVPB SCH ×3 (05:46→17:50)
[2018-12-02] MEDS: D5W-0.45 NACL + KCL 20 MEQ 1,000 ML IV SCH ×3 (06:18→20:39)
[2018-12-02] MEDS: FENTAnyl 2MCG/ML-ROPIV 0.2% 100 ML BAG EPI SCH (07:37)
[2018-12-02] MEDS: VANCOMYCIN HCL 1.5 GM in SOD CHLORIDE 0.9% 250 ML IVPB SCH ×2 (08:39→21:28)
[2018-12-02] MEDS: PANTOPRAZOLE 40 MG INJ IV SCH ×2 (08:39→20:38)
--- NOTE | 2018-12-02 15:17 | PN ---
Date/Time of Note Date/Time of Note DATE: 12/02/18 TIME: 15:16 Assessment/Plan VTE Prophylaxis Risk score (from Nsg)>0 risk: 5 SCD applied (from Nsg): Yes Pharmacological prophylaxis: heparin Lines/Catheters IV Catheter Type (from Nrsg): Peripheral IV Urinary Cath still in place: Yes Reason Cath still needed: urinary retention Assessment/Plan Hospital Course EXAM: Comfortable Aox3 Midline surgical incision c/d/i Drain RRR CTAB Soft nt nd Aiken 43 yo male with known PUD/H Pylori infection in the past, iron deficiency anemia, PSA presents with RUQ pain x 2 months with weight loss with imaging at outside hosptial showing duodenal ulcer, then with perforation and pneumoperitoneum. S/p ex lap with omental patch by Dr Obrien 11/29 Perforating gastric/duodenal ulcer with pneumoperitoneum s/p OR: - Continue PPI IV - Dr Obrien surgeon - Continue zosyn and vancomcyin for now for peritonitis - NG tube to suction - Perioperative care per surgery - IV fluids while NPO JANETH - resolved Diarrhea: - Check C Diff Result Diagram: 12/02/18 0853 12/02/18 0853 Results 24hrs Laboratory Tests Test 12/01/18 17:17 12/02/18 08:53 Vancomycin Level Trough 11.4 White Blood Count 12.4 H Red Blood Count 3.10 L Hemoglobin 8.9 L Hematocrit 26.9 L Mean Corpuscular Volume 86.8 Mean Corpuscular Hemoglobin 28.7 L Mean Corpuscular Hemoglobin Concent 33.1 Red Cell Distribution Width 14.4 Platelet Count 528 H Mean Platelet Volume 9.0 Immature Granulocytes % 0.600 H Neutrophils % 73.6 Lymphocytes % 8.1 L Monocytes % 15.7 H Eosinophils % 1.7 Basophils % 0.3 Nucleated Red Blood Cells % 0.0 Immature Granulocytes # 0.080 H Neutrophils # 9.1 H Lymphocytes # 1.0 Monocytes # 1.9 H Eosinophils # 0.2 Basophils # 0.0 Nucleated Red Blood Cells # 0.0 Prothrombin Time 15.1 H Prothrombin Time Ratio 1.2 INR International Normalized Ratio 1.18 Activated Partial Thromboplast Time 35.6 H Sodium Level 136 Potassium Level 3.7 Chloride Level 106 Carbon Dioxide Level 23 Anion Gap 7 Blood Urea Nitrogen 6 L Creatinine 0.86 Est Glomerular Filtrat Rate mL/min > 60 Glucose Level 133 Calcium Level 8.5 Subjective 24 Hr Interval Summary Free Text/Dictation Now having diarrhea Maintain NPO per Dr Obrien Epidural still in Exam/Review of Systems Exam Vitals Vital Signs Date Temp Pulse Resp B/P (MAP) Pulse Ox O2 O2 Flow FiO2 Time Delivery Rate 12/02/18 108 33 118/73 100 13:30 (88) 12/02/18 Room Air 13:01 12/02/18 99.2 12:00 11/29/18 2.0 18:00 Intake and Output 12/01/18 12/01/18 12/02/18 1515:00 23:00 07:00 IntakeIntake Total 1550.000 ml 1457.666 ml 1254.834 ml OutputOutput Total 645 ml 1410 ml 1387 ml BalanceBalance 905.000 ml 47.666 ml -132.166 ml Results Results 24hrs Laboratory Tests Test 12/01/18 17:17 12/02/18 08:53 Vancomycin Level Trough 11.4 White Blood Count 12.4 H Red Blood Count 3.10 L Hemoglobin 8.9 L Hematocrit 26.9 L Mean Corpuscular Volume 86.8 Mean Corpuscular Hemoglobin 28.7 L Mean Corpuscular Hemoglobin Concent 33.1 Red Cell Distribution Width 14.4 Platelet Count 528 H Mean Platelet Volume 9.0 Immature Granulocytes % 0.600 H Neutrophils % 73.6 Lymphocytes % 8.1 L Monocytes % 15.7 H Eosinophils % 1.7 Basophils % 0.3 Nucleated Red Blood Cells % 0.0 Immature Granulocytes # 0.080 H Neutrophils # 9.1 H Lymphocytes # 1.0 Monocytes # 1.9 H Eosinophils # 0.2 Basophils # 0.0 Nucleated Red Blood Cells # 0.0 Prothrombin Time 15.1 H Prothrombin Time Ratio 1.2 INR International Normalized Ratio 1.18 Activated Partial Thromboplast Time 35.6 H Sodium Level 136 Potassium Level 3.7 Chloride Level 106 Carbon Dioxide Level 23 Anion Gap 7 Blood Urea Nitrogen 6 L Creatinine 0.86 Est Glomerular Filtrat Rate mL/min > 60 Glucose Level 133 Calcium Level 8.5 Medications Medication Current Medications Hydromorphone HCl (Dilaudid) 0.5 mg Q4H PRN IV .SEVERE PAIN 7-10 Last administered on 11/29/18at 15:53; Admin Dose 0.5 MG; Start 11/27/18 at 13:00 Acetaminophen (Tylenol Liquid) 650 mg Q4H PRN PO MILD PAIN(1-3)OR ELEVATED TEMP Last administered on 11/29/18 09:04; Admin Dose 650 MG; Start 11/29/18 at 09:00 Potassium Chloride/Dextrose/ Sod Cl 1,000 ml @ 150 mls/hr Q6H40M IV Last adm inistered on 12/02/18 13:25; Admin Dose 150 MLS/HR; Start 11/29/18 at 14:02 Naloxone HCl (Narcan) 0.2 mg Q2M PRN IV .RESP RATE; Start 11/29/18 at 15:00 Fentanyl/ Ropivacaine 100 ml EPIDURAL (PCEA) EPI Last administered on 12/02/18 07:37; Admin Dose 100 ML; Start 11/29/18 at 15:00 Piperacillin Sod/ Tazobactam Sod 100 ml @ 200 mls/hr Q6 IVPB Last administered on 12/02/18 11:40; Admin Dose 200 MLS/HR; Start 11/29/18 at 15:30 Hydromorphone HCl (Dilaudid) 1 mg Q2H PRN IV SEVERE PAIN LEVEL 7-10 Last administered on 11/29/18 18:40; Admin Dose 1 MG; Start 11/29/18 at 18:30 Vancomycin HCl (Vanco Iv Per Pharmacy) VANCOMYCIN PER PHARMACY PER PROTOCOL XX ; Start 11/30/18 at 04:00 Pantoprazole (Protonix Iv) 40 mg BID IV Last administered on 12/02/18 08:39; Admin Dose 40 MG; Start 11/30/18 at 21:00 Vancomycin HCl 1.5 gm/Sodium Chloride 250 ml @ 83.333 mls/ hr Q12H IVPB Last administered on 12/02/18 08:39; Admin Dose 83.333 MLS/HR; Start 12/01/18 at 21:00 NASEEM GILBERT MD December 02, 2018 15:17
--- NOTE | 2018-12-02 16:31 | PN ---
DATE: 12/02/2018 The patient is being seen in the ICU. Postop day #4 status post laparotomy, washout of the peritonea l cavity. Closure of the perforation of the duodenum, pylorus with Merritt patch. SUBJECTIVE: Feels better, has had 2 or 3 very loose bowel movement, no nausea, no vomiting. NG tube is in place. OBJECTIVE: GENERAL: Awake, alert, oriented. VITAL SIGNS: Temperature maximum 99.2, heart rate 108, respiration 22, blood pressure 118/73, satura tion 98% on room air. LABORATORY DATA: WBC 12,400 and 73% segmented, hemoglobin 8.9, hematocrit 26.9. Platelet is 528. C hemistry: Sodium, potassium, BUN, creatinine within normal limits. I's and O's: Urine output in pa st 24 hours 1830 mL. NG tube in past 24 hours 1600 mL. Faisal-Basilio drain in the past 24 hours 70 of [place] fluid. CLINICAL EXAM: HEART: Regular. LUNGS: Decreased breathing sound at bases. ABDOMEN: Not distended. Dressing is intact. Bowel sound is present. Mild tenderness on pressure a ll over. Legs no calf tenderness. ASSESSMENT: Status post laparotomy, closure of perforation of the duodenum or trauma or pylorus of t he stomach due to ulcer. This is probably chronic perforation for about 2 months. The patient is do ing fine post-operation. PLAN: Post-operation, will continue to keep the Aiken catheter for monitoring urine output. Keep th e NG tube in place, epidural is in place. If they decide to transfer the patient out of ICU, from quarles rgical point of view, it is okay. I will continue to follow for surgery group. Dictated By: BETH OSUNA/HAYES Conf#: [id number] DID#: [id number]
[2018-12-03] VITALS (30 sets, daily range): BP systolic 107–145; BP diastolic 52–106; PULSE 96–123; RESP 19–36
[2018-12-03] MEDS: PIPER-TAZO 3.375 GM IV (PMX) 100 ML IVPB SCH ×5 (01:22→23:16)
[2018-12-03] MEDS: D5W-0.45 NACL + KCL 20 MEQ 1,000 ML IV SCH ×4 (03:09→23:08)
[2018-12-03] MEDS: FENTAnyl 2MCG/ML-ROPIV 0.2% 100 ML BAG EPI SCH (04:41)
[2018-12-03] MEDS: VANCOMYCIN HCL 1.5 GM in SOD CHLORIDE 0.9% 250 ML IVPB SCH (09:27)
[2018-12-03] MEDS: PANTOPRAZOLE 40 MG INJ IV SCH ×2 (09:27→21:06)
--- NOTE | 2018-12-03 12:20 | PN ---
Date/Time of Note Date/Time of Note DATE: 12/03/18 TIME: 12:20 Assessment/Plan VTE Prophylaxis Risk score (from Ns)>0 risk: 6 SCD applied (from Ns): Yes Pharmacological prophylaxis: other Lines/Catheters IV Catheter Type (from [facility]): Peripheral IV Urinary Cath still in place: Yes Reason Cath still needed: skin wounds contaminated by urine Assessment/Plan Result Diagram: 12/03/18 1115 12/03/18 0959 Results 24hrs Laboratory Tests Test 12/03/18 09:59 12/03/18 11:15 Prothrombin Time 16.4 H Prothrombin Time Ratio 1.3 INR International Normalized Ratio 1.31 Activated Partial Thromboplast Time 21.6 L Sodium Level 141 Potassium Level 4.1 Chloride Level 111 H Carbon Dioxide Level 21 Anion Gap 9 Blood Urea Nitrogen 7 Creatinine 0.97 Est Glomerular Filtrat Rate mL/min > 60 Glucose Level 116 Calcium Level 8.4 White Blood Count 11.9 H Red Blood Count 3.00 L Hemoglobin 8.6 L Hematocrit 26.0 L Mean Corpuscular Volume 86.7 Mean Corpuscular Hemoglobin 28.7 L Mean Corpuscular Hemoglobin Concent 33.1 Red Cell Distribution Width 14.6 H Platelet Count 576 H Mean Platelet Volume 9.2 Immature Granulocytes % 0.800 H Neutrophils % 71.0 Lymphocytes % 12.6 L Monocytes % 13.8 H Eosinophils % 1.5 Basophils % 0.3 Nucleated Red Blood Cells % 0.0 Immature Granulocytes # 0.100 H Neutrophils # 8.4 H Lymphocytes # 1.5 Monocytes # 1.6 H Eosinophils # 0.2 Basophils # 0.0 Nucleated Red Blood Cells # 0.0 Subjective 24 Hr Interval Summary Free Text/Dictation Please ignore this note Exam/Review of Systems Exam Vitals Vital Signs Date Temp Pulse Resp B/P (MAP) Pulse Ox O2 O2 Flow FiO2 Time Delivery Rate 12/03/18 98.9 96 24 142/94 93 Room Air 12:00 (110) 11/29/18 2.0 18:00 Intake and Output 12/02/18 12/02/18 12/03/18 1414:59 22:59 06:59 IntakeIntake Total 1567.000 ml 1432.156 ml 1683.844 ml OutputOutput Total 515 ml 980 ml 1740 ml BalanceBalance 1052.000 ml 452.156 ml -56.156 ml Results Results 24hrs Laboratory Tests Test 12/03/18 09:59 12/03/18 11:15 Prothrombin Time 16.4 H Prothrombin Time Ratio 1.3 INR International Normalized Ratio 1.31 Activated Partial Thromboplast Time 21.6 L Sodium Level 141 Potassium Level 4.1 Chloride Level 111 H Carbon Dioxide Level 21 Anion Gap 9 Blood Urea Nitrogen 7 Creatinine 0.97 Est Glomerular Filtrat Rate mL/min > 60 Glucose Level 116 Calcium Level 8.4 White Blood Count 11.9 H Red Blood Count 3.00 L Hemoglobin 8.6 L Hematocrit 26.0 L Mean Corpuscular Volume 86.7 Mean Corpuscular Hemoglobin 28.7 L Mean Corpuscular Hemoglobin Concent 33.1 Red Cell Distribution Width 14.6 H Platelet Count 576 H Mean Platelet Volume 9.2 Immature Granulocytes % 0.800 H Neutrophils % 71.0 Lymphocytes % 12.6 L Monocytes % 13.8 H Eosinophils % 1.5 Basophils % 0.3 Nucleated Red Blood Cells % 0.0 Immature Granulocytes # 0.100 H Neutrophils # 8.4 H Lymphocytes # 1.5 Monocytes # 1.6 H Eosinophils # 0.2 Basophils # 0.0 Nucleated Red Blood Cells # 0.0 Medications Medication Current Medications Hydromorphone HCl (Dilaudid) 0.5 mg Q4H PRN IV .SEVERE PAIN 7-10 Last administered on 11/29/18at 15:53; Admin Dose 0.5 MG; Start 11/27/18 at 13:00 Acetaminophen (Tylenol Liquid) 650 mg Q4H PRN PO MILD PAIN(1-3)OR ELEVATED TEMP Last administered on 11/29/18at 09:04; Admin Dose 650 MG; Start 11/29/18 at 09:00 Potassium Chloride/Dextrose/ Sod Cl 1,000 ml @ 150 mls/hr Q6H40M IV Last administered on 12/03/18at 03:09; Admin Dose 150 MLS/HR; Start 11/29/18 at 14:02 Naloxone HCl (Narcan) 0.2 mg Q2M PRN IV .RESP RATE; Start 11/29/18 at 15:00 Piperacillin Sod/ Tazobactam Sod 100 ml @ 200 mls/hr Q6 IVPB Last administered on 12/03/18at 05:44; Admin Dose 200 MLS/HR; Start 11/29/18 at 15:30 Hydromorphone HCl (Dilaudid) 1 mg Q2H PRN IV SEVERE PAIN LEVEL 7-10 Last administered on 11/29/18at 18:40; Admin Dose 1 MG; Start 11/29/18 at 18:30 Pantoprazole (Protonix Iv) 40 mg BID IV Last administered on 12/03/18at 09:27; Admin Dose 40 MG; Start 11/30/18 at 21:00 Fentanyl/ Ropivacaine 100 ml EPIDURAL (PCEA) EPI ; Start 11/29/18 at 15:00 CHIVO TAMEZ December 03, 2018 12:20
--- NOTE | 2018-12-03 15:41 | PN ---
Date/Time of Note Date/Time of Note DATE: 12/03/18 TIME: 15:39 Assessment/Plan VTE Prophylaxis Risk score (from Nsg)>0 risk: 6 SCD applied (from Nsg): Yes Pharmacological prophylaxis: heparin Lines/Catheters IV Catheter Type (from Nrsg): Peripheral IV Urinary Cath still in place: Yes Reason Cath still needed: urinary retention Assessment/Plan Hospital Course EXAM: Comfortable Aox3 Midline surgical incision c/d/i Drain RRR CTAB Soft nt nd Aiken 43 yo male with known PUD/H Pylori infection in the past, iron deficiency anemia, PSA presents with RUQ pain x 2 months with weight loss with imaging at outside hosptial showing duodenal ulcer, then with perforation and pneumoperitoneum. S/p ex lap with omental patch by Dr Obrien 11/29 Perforating gastric/duodenal ulcer with pneumoperitoneum s/p OR: - Continue NPO per now. Per Dr Obrien, patient had very large hole in stomach. There is risk of re-perforation if any gastric distension. We will perform UGIS 1 week out to see if he can take PO at that time. Will start TPN in the meantime - Continue PPI IV - Dr Obrien surgeon - Continue zosyn for now for peritonitis - Perioperative care per surgery - IV fluids while NPO. Will place PICC and start TPN JANETH - resolved Diarrhea: - Check C Diff Result Diagram: 12/03/18 1115 12/03/18 0959 Results 24hrs Laboratory Tests Test 12/03/18 09:59 12/03/18 11:15 Prothrombin Time 16.4 H Prothrombin Time Ratio 1.3 INR International Normalized Ratio 1.31 Activated Partial Thromboplast Time 21.6 L Sodium Level 141 Potassium Level 4.1 Chloride Level 111 H Carbon Dioxide Level 21 Anion Gap 9 Blood Urea Nitrogen 7 Creatinine 0.97 Est Glomerular Filtrat Rate mL/min > 60 Glucose Level 116 Calcium Level 8.4 White Blood Count 11.9 H Red Blood Count 3.00 L Hemoglobin 8.6 L Hematocrit 26.0 L Mean Corpuscular Volume 86.7 Mean Corpuscular Hemoglobin 28.7 L Mean Corpuscular Hemoglobin Concent 33.1 Red Cell Distribution Width 14.6 H Platelet Count 576 H Mean Platelet Volume 9.2 Immature Granulocytes % 0.800 H Neutrophils % 71.0 Lymphocytes % 12.6 L Monocytes % 13.8 H Eosinophils % 1.5 Basophils % 0.3 Nucleated Red Blood Cells % 0.0 Immature Granulocytes # 0.100 H Neutrophils # 8.4 H Lymphocytes # 1.5 Monocytes # 1.6 H Eosinophils # 0.2 Basophils # 0.0 Nucleated Red Blood Cells # 0.0 Subjective 24 Hr Interval Summary Free Text/Dictation NG tube self removed Doing well Minimal pain Exam/Review of Systems Exam Vitals Vital Signs Date Temp Pulse Resp B/P (MAP) Pulse Ox O2 O2 Flow FiO2 Time Delivery Rate 12/03/18 100 23 140/106 99 Room Air 15:00 (117) 12/03/18 98.9 12:00 11/29/18 2.0 18:00 Intake and Output 12/02/18 12/02/18 12/03/18 1515:00 23:00 07:00 IntakeIntake Total 1592.000 ml 1515.489 ml 1600.511 ml OutputOutput Total 505 ml 1020 ml 1715 ml BalanceBalance 1087.000 ml 495.489 ml -114.489 ml Results Results 24hrs Laboratory Tests Test 12/03/18 09:59 12/03/18 11:15 Prothrombin Time 16.4 H Prothrombin Time Ratio 1.3 INR International Normalized Ratio 1.31 Activated Partial Thromboplast Time 21.6 L Sodium Level 141 Potassium Level 4.1 Chloride Level 111 H Carbon Dioxide Level 21 Anion Gap 9 Blood Urea Nitrogen 7 Creatinine 0.97 Est Glomerular Filtrat Rate mL/min > 60 Glucose Level 116 Calcium Level 8.4 White Blood Count 11.9 H Red Blood Count 3.00 L Hemoglobin 8.6 L Hematocrit 26.0 L Mean Corpuscular Volume 86.7 Mean Corpuscular Hemoglobin 28.7 L Mean Corpuscular Hemoglobin Concent 33.1 Red Cell Distribution Width 14.6 H Platelet Count 576 H Mean Platelet Volume 9.2 Immature Granulocytes % 0.800 H Neutrophils % 71.0 Lymphocytes % 12.6 L Monocytes % 13.8 H Eosinophils % 1.5 Basophils % 0.3 Nucleated Red Blood Cells % 0.0 Immature Granulocytes # 0.100 H Neutrophils # 8.4 H Lymphocytes # 1.5 Monocytes # 1.6 H Eosinophils # 0.2 Basophils # 0.0 Nucleated Red Blood Cells # 0.0 Medications Medication Current Medications Hydromorphone HCl (Dilaudid) 0.5 mg Q4H PRN IV .SEVERE PAIN 7-10 Last administered on 11/29/18at 15:53; Admin Dose 0.5 MG; Start 11/27/18 at 13:00 Acetaminophen (Tylenol Liquid) 650 mg Q4H PRN PO MILD PAIN(1-3)OR ELEVATED TEMP Last administered on 11/29/18at 09:04; Admin Dose 650 MG; Start 11/29/18 at 09:00 Potassium Chloride/Dextrose/ Sod Cl 1,000 ml @ 150 mls/hr Q6H40M IV Last administered on 12/03/18 03:09; Admin Dose 150 MLS/HR; Start 11/29/18 at 14:02 Naloxone HCl (Narcan) 0.2 mg Q2M PRN IV .RESP RATE; Start 11/29/18 at 15:00 Piperacillin Sod/ Tazobactam Sod 100 ml @ 200 mls/hr Q6 IVPB Last administered on 12/03/18at 12:47; Admin Dose 200 MLS/HR; Start 11/29/18 at 15:30 Hydromorphone HCl (Dilaudid) 1 mg Q2H PRN IV SEVERE PAIN LEVEL 7-10 Last administered on 11/29/18at 18:40; Admin Dose 1 MG; Start 11/29/18 at 18:30 Pantoprazole (Protonix Iv) 40 mg BID IV Last administered on 12/03/18at 09:27; Admin Dose 40 MG; Start 11/30/18 at 21:00 Fentanyl/ Ropivacaine 100 ml EPIDURAL (PCEA) EPI ; Start 11/29/18 at 15:00 NASEEM GILBERT MD December 03, 2018 15:40
--- NOTE | 2018-12-03 15:42 | PN ---
DATE: 12/03/2018 Postop day #5 status post laparotomy, peritoneal washout, closure of the perforated duodenal-gastric ulcers with placement of Merritt patch. SUBJECTIVE: Feels good. No nausea, no vomiting. Has had bowel movement, still is very loose. Apparently last night around 2:30 in the morning somehow it happened that the NG tube has come out. Therefore, decision has been made to keep it out and we request that nobody put back the NG tube.,unless the surgeons allow that.. OBJECTIVE: GENERAL: Alert, awake, oriented x3. VITAL SIGNS: Temperature maximum today 98.9, heart rate fluctuating between 96 and 113, respiratory rate fluctuating between 21 and 25, blood pressure 142/94, saturation 93% on room air. LABORATORY DATA: Sodium, potassium, BUN, creatinine normal. Hematology: WBC 11,900 with 71% segmented differential. He has normal hemoglobin 8.6, hematocrit 26, platelet has increased gradually. Today is 576. I and O: Urine output past 24 hours 2165. NG tube recording from 7:00 a.m. yesterday to 7 a.m. today considering that this has been out for 5 to 6 hours, NG tube has been recorded at 1000 mL greenish. Faisal-Basilio drain has drained 70 mL and it is serous in color. HEART: Regular. LUNGS: Clear. ABDOMEN: Not distended, is soft, nontender. EXTREMITIES: Lower extremity: No pitting edema. Aiken catheter sitting in place, epidural sitting in place, but is on-demand. ASSESSMENT AND PLAN: 1. The patient is quite stable. 2. Will keep the NG tube out now that it has been pulled out. 3. Keep the patient absolutely n.p.o. 4. The patient can be transferred out of ICU to the surgical floor from surgical point of view. 5. Aiken catheter can be discontinued if this is okay with medical service. Dictated By: BETH CASTANON MD PS/NTS Conf#: [id number] DID#: [id number] CC: NASEEM GILBERT MD;*EndCC* MTDD
[2018-12-03] MEDS ORDERED: LIDOCAINE 1% (MPF) 5 ML VIAL SC ONE (16:00)
[2018-12-04] VITALS (24 sets, daily range): BP systolic 117–147; BP diastolic 65–121; PULSE 92–108; RESP 14–31
[2018-12-04] MEDS: PIPER-TAZO 3.375 GM IV (PMX) 100 ML IVPB SCH ×3 (06:01→17:49)
[2018-12-04] MEDS: D5W-0.45 NACL + KCL 20 MEQ 1,000 ML IV SCH ×2 (06:01→12:47)
[2018-12-04] MEDS: PANTOPRAZOLE 40 MG INJ IV SCH ×2 (08:21→21:36)
[2018-12-04] MEDS ORDERED: LIDOCAINE 1% (MPF) 5 ML VIAL SC ONE (08:30)
[2018-12-04] MEDS: ACCU-CHEK XX SCH ×4 (09:00→21:36)
[2018-12-04] MEDS: POTASSIUM CHLORIDE 50 ML IVPB SCH ×2 (13:43→15:23)
--- NOTE | 2018-12-04 15:09 | PN ---
Date/Time of Note Date/Time of Note DATE: 12/04/18 TIME: 15:06 Assessment/Plan VTE Prophylaxis Risk score (from Ns)>0 risk: 7 SCD applied (from Ns): Yes Pharmacological prophylaxis: NA/contraindicated Pharm contraindication: surgical contra Assessment/Plan Hospital Course 43 yo male with known PUD/H Pylori infection in the past, iron deficiency anemia, PSA presents with RUQ pain x 2 months with weight loss with imaging at outside hospital showing duodenal ulcer, then with perforation and pneumoperitoneum. S/p ex lap with omental patch by Dr Obrien 11/29 Perforating gastric/duodenal ulcer with pneumoperitoneum s/p OR: - Continue NPO per now. Per Dr Obrien, patient had very large hole in stomach. There is risk of re-perforation if any gastric distension and will perform UGIS 1 week out to see if he can take PO at that time -Continue TPN in the meantime - Continue PPI IV - Continue zosyn for now for peritonitis - Perioperative care per surgery with Dr. Obrien JANETH - resolved Diarrhea: -Cultures and C. difficile are negative DC planning: Downgrade Result Diagram: 12/03/18 1115 12/04/18 0444 Results 24hrs Laboratory Tests Test 12/04/18 04:44 12/04/18 12:44 Sodium Level 145 H Potassium Level 3.3 L Chloride Level 112 H Carbon Dioxide Level 23 Anion Gap 10 Blood Urea Nitrogen 6 L Creatinine 1.21 Est Glomerular Filtrat Rate mL/min > 60 Glucose Level 106 Calcium Level 8.4 Phosphorus Level 3.5 Magnesium Level 2.2 Bedside Glucose 105 Subjective 24 Hr Interval Summary Constitutional: no complaints Exam/Review of Systems Exam Vitals Vital Signs Date Temp Pulse Resp B/P (MAP) Pulse Ox O2 O2 Flow FiO2 Time Delivery Rate 12/04/18 92 12:00 12/04/18 98.5 22 128/86 100 Room Air 12:00 (100) Intake and Output 12/03/18 12/03/18 12/04/18 1515:00 23:00 07:00 IntakeIntake Total 1372 ml 1260 ml 1650 ml OutputOutput Total 845 ml 1055 ml 1420 ml BalanceBalance 527 ml 205 ml 230 ml Constitutional: alert, oriented Respiratory: clear to auscultation Cardiovascular: regular rate and rhythm Gastrointestinal: soft; No distended Musculoskeletal: nl extremities to inspection Results Results 24hrs Laboratory Tests Test 12/04/18 04:44 12/04/18 12:44 Sodium Level 145 H Potassium Level 3.3 L Chloride Level 112 H Carbon Dioxide Level 23 Anion Gap 10 Blood Urea Nitrogen 6 L Creatinine 1.21 Est Glomerular Filtrat Rate mL/min > 60 Glucose Level 106 Calcium Level 8.4 Phosphorus Level 3.5 Magnesium Level 2.2 Bedside Glucose 105 Medications Medication Current Medications Hydromorphone HCl (Dilaudid) 0.5 mg Q4H PRN IV .SEVERE PAIN 7-10 Last administered on 11/29/18 15:53; Admin Dose 0.5 MG; Start 11/27/18 at 13:00 Acetaminophen (Tylenol Liquid) 650 mg Q4H PRN PO MILD PAIN(1-3)OR ELEVATED TEMP Last administered on 11/29/18 09:04; Admin Dose 650 MG; Start 11/29/18 at 09:00 Potassium Chloride/Dextrose/ Sod Cl 1,000 ml @ 150 mls/hr Q6H40M IV Last administered on 12/04/18 12:47; Admin Dose 150 MLS/HR; Start 11/29/18 at 14:02; Stop 12/04/18 at 17:59 Naloxone HCl (Narcan) 0.2 mg Q2M PRN IV .RESP RATE; Start 11/29/18 at 15:00 Piperacillin Sod/ Tazobactam Sod 100 ml @ 200 mls/hr Q6 IVPB Last administered on 12/04/18 12:29; Admin Dose 200 MLS/HR; Start 11/29/18 at 15:30 Hydromorphone HCl (Dilaudid) 1 mg Q2H PRN IV SEVERE PAIN LEVEL 7-10 Last administered on 11/29/18 18:40; Admin Dose 1 MG; Start 11/29/18 at 18:30 Pantoprazole (Protonix Iv) 40 mg BID IV Last administered on 12/04/18 08:21; Admin Dose 40 MG; Start 11/30/18 at 21:00 Diagnostic Test (Pha) (Accu-Chek) 1 ea Q4 XX Last administered on 12/04/18 12:45; Admin Dose 1 EA; Start 12/04/18 at 09:00 Total Parenteral Nutrition 1,000 ml @ 100 mls/hr Q10H IV ; Start 12/04/18 at 18:00 IV Flush (NS 10 ml) 10 ml PRN PRN IV IV PROTOCOL; Start 12/04/18 at 13:00 Potassium Chloride 50 ml @ 25 mls/hr Q2H IVPB Last administered on 12/04/18at 13:43; Admin Dose 25 MLS/HR; Start 12/04/18 at 13:30; Stop 12/04/18 at 17:29 LISETTE KHANNA December 04, 2018 15:09
[2018-12-04] MEDS: TPN 1,000 ML IV SCH (17:49)
--- NOTE | 2018-12-04 17:56 | PN ---
DATE: 12/04/2018 Postop day #6 status post laparotomy, closure of perforation of the duodenum and placement of Merritt patch and peritoneal washout. SUBJECTIVE: Feels much better. Has had bowel movement. NG tube as was mentioned has been out since yesterday. Then it accidentally was pulled out. No nausea, no vomiting. Has been out of bed, sitt ing in the chair. OBJECTIVE: VITAL SIGNS: Temperature maximum 98.5, heart rate 99, respirations 24, blood pressure 138/95, satura tion 98% on room air. HEART: Regular. LUNGS: Clear. ABDOMEN: Mild tenderness on deep pressure, is not distended. EXTREMITIES: Lower extremities: No pitting edema, no calf tenderness. GENITOURINARY: Iaken catheter is in place. INPUT AND OUTPUT: There is a [place] drain. Drainage has been 170 mL in past 24 hours serous in colo r. LABORATORY DATA: No hematology today. Chemistry: Sodium 145, potassium 3.3 which is low a little b it. Otherwise, BUN and creatinine are normal. ASSESSMENT AND PLAN: A 43-year-old male status post laparotomy and closure of perforated (chronic) d uodenal or gastric ulcer with Merritt patch. The patient is doing fine. Two days ago incidentally, t he NG tube was pulled out and we decided not to try to put it back concerning for the possibility of perforation at the site of the suturing. The patient has been doing fine and started having bowel mo vement. PLAN: 1. Tomorrow, they are going to discontinue the Aiken catheter. 2. Tomorrow, we are going to order upper GI series to be done on Tuesday. Dictated By: BETH CASTANON MD PS/NTS Conf#: [id number] DID#: [id number] CC: NASEEM GILBERT MD; LISETTE KHANNA MD; ANTONIO STEIN MD;*End*
--- NOTE | 2018-12-04 18:51 | OPPN ---
Date/Time of Note Date/Time of Note DATE: 12/04/18 TIME: 18:49 Anesthesia Follow up Anesthesia Follow up Last documented vital signs Vital Signs Date Temp Pulse Resp B/P (MAP) Pulse Ox O2 O2 Flow FiO2 Time Delivery Rate 12/04/18 98 31 128/80 99 Room Air 18:00 (96) 12/04/18 98.4 16:00 Respiratory function: WNL Cardiovascular function: WNL Comments Pt seen and examed. Pt in stable condition and comfortable. Epidural catheter was D/Balaji with tip intact. MEAGHAN YANES MD December 04, 2018 18:51
[2018-12-05] VITALS (19 sets, daily range): BP systolic 111–151; BP diastolic 72–102; PULSE 60–112; RESP 16–30
[2018-12-05] MEDS: ACCU-CHEK XX SCH ×6 (00:39→20:24)
[2018-12-05] MEDS: PIPER-TAZO 3.375 GM IV (PMX) 100 ML IVPB SCH ×5 (00:39→23:34)
[2018-12-05] MEDS: TPN 1,000 ML IV SCH ×2 (04:50→15:00)
[2018-12-05] MEDS: PANTOPRAZOLE 40 MG INJ IV SCH ×2 (08:24→20:24)
--- NOTE | 2018-12-05 15:25 | PN ---
Date/Time of Note Date/Time of Note DATE: 12/05/18 TIME: 15:23 Assessment/Plan VTE Prophylaxis Risk score (from Ns)>0 risk: 6 SCD applied (from Ns): Yes Pharmacological prophylaxis: NA/contraindicated Pharm contraindication: bleeding Lines/Catheters Urinary Cath still in place: No Assessment/Plan Hospital Course 43 yo male with known PUD/H Pylori infection in the past, iron deficiency anemia, PSA presents with RUQ pain x 2 months with weight loss with imaging at outside hospital showing duodenal ulcer, then with perforation and pneumoperitoneum. S/p ex lap with omental patch by Dr Obrien 11/29 Perforating gastric/duodenal ulcer with pneumoperitoneum s/p OR: - Continue NPO per now. Per Dr Obrien, patient had very large hole in stomach. There is risk of re-perforation if any gastric distension and will perform UGIS 1 week out to see if he can take PO at that time -Continue TPN in the meantime - Continue PPI IV - Continue zosyn for now for peritonitis - Perioperative care per surgery with Dr. Obrien JANETH - resolved Diarrhea: -Cultures and C. difficile are negative DC planning: Downgrade Result Diagram: 12/03/18 1115 12/05/18 0451 Results 24hrs Laboratory Tests Test 12/04/18 17:50 12/04/18 21:35 12/05/18 00:35 12/05/18 04:51 Bedside Glucose 110 107 119 Sodium Level 144 Potassium Level 3.7 Chloride Level 114 H Carbon Dioxide Level 23 Anion Gap 7 Blood Urea Nitrogen 8 Creatinine 1.15 Est Glomerular Filtrat > 60 Rate mL/min Glucose Level 96 Calcium Level 8.5 Phosphorus Level 3.4 Magnesium Level 2.2 Test 12/05/18 04:54 12/05/18 08:27 12/05/18 12:27 Bedside Glucose 99 112 87 Subjective 24 Hr Interval Summary Constitutional: no complaints Exam/Review of Systems Exam Vitals Vital Signs Date Temp Pulse Resp B/P (MAP) Pulse Ox O2 O2 Flow FiO2 Time Delivery Rate 12/05/18 90 12:00 12/05/18 27 100 12:00 12/05/18 145/101 Room Air 11:00 (116) 12/05/18 98.4 08:00 Intake and Output 12/04/18 12/04/18 12/05/18 1515:00 23:00 07:00 IntakeIntake Total 1350 ml 950 ml 1000 ml OutputOutput Total 1380 ml 1145 ml 980 ml BalanceBalance -30 ml -195 ml 20 ml Constitutional: alert Respiratory: clear to auscultation Cardiovascular: regular rate and rhythm Gastrointestinal: soft; No distended Musculoskeletal: nl extremities to inspection Results Results 24hrs Laboratory Tests Test 12/04/18 17:50 12/04/18 21:35 12/05/18 00:35 12/05/18 04:51 Bedside Glucose 110 107 119 Sodium Level 144 Potassium Level 3.7 Chloride Level 114 H Carbon Dioxide Level 23 Anion Gap 7 Blood Urea Nitrogen 8 Creatinine 1.15 Est Glomerular Filtrat > 60 Rate mL/min Glucose Level 96 Calcium Level 8.5 Phosphorus Level 3.4 Magnesium Level 2.2 Test 12/05/18 04:54 12/05/18 08:27 12/05/18 12:27 Bedside Glucose 99 112 87 Medications Medication Current Medications Hydromorphone HCl (Dilaudid) 0.5 mg Q4H PRN IV .SEVERE PAIN 7-10 Last administered on 11/29/18at 15:53; Admin Dose 0.5 MG; Start 11/27/18 at 13:00 Acetaminophen (Tylenol Liquid) 650 mg Q4H PRN PO MILD PAIN(1-3)OR ELEVATED TEMP Last administered on 11/29/18at 09:04; Admin Dose 650 MG; Start 11/29/18 at 09:00 Naloxone HCl (Narcan) 0.2 mg Q2M PRN IV .RESP RATE; Start 11/29/18 at 15:00 Piperacillin Sod/ Tazobactam Sod 100 ml @ 200 mls/hr Q6 IVPB Last administered on 12/05/18at 11:12; Admin Dose 200 MLS/HR; Start 11/29/18 at 15:30 Hydromorphone HCl (Dilaudid) 1 mg Q2H PRN IV SEVERE PAIN LEVEL 7-10 Last admini stered on 11/29/18at 18:40; Admin Dose 1 MG; Start 11/29/18 at 18:30 Pantoprazole (Protonix Iv) 40 mg BID IV Last administered on 12/05/18at 08:24; Admin Dose 40 MG; Start 11/30/18 at 21:00 Diagnostic Test (Pha) (Accu-Chek) 1 ea Q4 XX Last administered on 12/05/18at 13:50; Admin Dose 1 EA; Start 12/04/18 at 09:00 Total Parenteral Nutrition 1,000 ml @ 100 mls/hr Q10H IV Last administered on 12/05/18at 15:00; Admin Dose 100 MLS/HR; Start 12/04/18 at 18:00 IV Flush (NS 10 ml) 10 ml PRN PRN IV IV PROTOCOL; Start 12/04/18 at 13:00 LISETTE KHANNA December 05, 2018 15:25
--- NOTE | 2018-12-05 16:25 | PN ---
DATE: 12/05/2018 Postop day #6 status post laparotomy, closure of the perforation of the duodenum, peritoneal washout. SUBJECTIVE: The patient states that he feels very good. Has had bowel movement. No fever, no nause a, no vomiting. OBJECTIVE: GENERAL: Alert, awake, oriented. VITAL SIGNS: Temperature today maximum 98.4, heart rate maximum 91, respiration fluctuating between 18 and 27, blood pressure 145/101, saturation 100% on room air. HEART: Regular. LUNGS: Clear. ABDOMEN: Soft, not tender. LABORATORY DATA: WBC was not done today. Chemistry: Sodium, potassium are normal. BUN and creatin ine are normal. INPUT AND OUTPUT: Faisal-Basilio drain in place is draining serous fluid. It has drained 60 mL in past 8 hours. Urine output: The Aiken was removed today and the patient has not collected urine f or measurement. ASSESSMENT AND PLAN: The patient is stable so far. Tomorrow is postop day #7. Therefore, we are go ing to get the upper GI Gastrografin tomorrow to make sure of lack of leakage at the site of closure. If that is intact, we may proceed with starting the patient on liquid diet. Dictated By: BETH CASTANON MD PS/NTS Conf#: [id number] DID#: [id number] CC: LISETTE KHANNA MD; ANTONIO STEIN MD; NASEEM GILBERT MD;*EndCC*
[2018-12-06] MEDS: ACCU-CHEK XX SCH ×5 (00:39→18:03)
[2018-12-06] MEDS: TPN 1,000 ML IV SCH ×2 (00:39→11:15)
[2018-12-06 01:18] VITALS: BP 136/92; PULSE 81; RESP 18
[2018-12-06] MEDS: PIPER-TAZO 3.375 GM IV (PMX) 100 ML IVPB SCH ×3 (05:01→18:02)
[2018-12-06 07:17] VITALS: BP 132/81; PULSE 90; RESP 18
[2018-12-06] MEDS: PANTOPRAZOLE 40 MG INJ IV SCH ×2 (09:28→21:55)
[2018-12-06] MEDS ORDERED: IOHEXOL 300MG/ML 150 ML BTL ONE (13:18)
[2018-12-06] MEDS ORDERED: ALTEPLASE (CATHFLO) 2 MG INJ CATHETER ONE (18:30)
[2018-12-06 19:23] VITALS: BP 132/87; PULSE 94; RESP 20
[2018-12-07] MEDS: PIPER-TAZO 3.375 GM IV (PMX) 100 ML IVPB SCH ×3 (00:35→12:58)
[2018-12-07] MEDS: ACCU-CHEK XX SCH ×4 (00:40→18:19)
[2018-12-07] MEDS: TPN 1,000 ML IV SCH ×2 (00:40→11:04)
[2018-12-07 02:02] VITALS: BP 129/83; PULSE 90; RESP 20
[2018-12-07 07:43] VITALS: BP 119/77; PULSE 114; RESP 18
[2018-12-07 08:20] VITALS: BP 109/59; PULSE 94; RESP 18
[2018-12-07] MEDS: PANTOPRAZOLE 40 MG INJ IV SCH ×2 (09:43→21:21)
--- NOTE | 2018-12-07 14:39 | PN ---
Date/Time of Note Date/Time of Note DATE: 12/07/18 TIME: 14:34 Assessment/Plan VTE Prophylaxis Risk score (from Ns)>0 risk: 6 SCD applied (from Ns): Yes Pharmacological prophylaxis: NA/contraindicated Pharm contraindication: low risk/ambulating Lines/Catheters Urinary Cath still in place: No Assessment/Plan Hospital Course 43 yo male with known PUD/H Pylori infection in the past, iron deficiency anemia, PSA presents with RUQ pain x 2 months with weight loss with imaging at outside hospital showing duodenal ulcer, then with perforation and pneumoperitoneum. S/p ex lap with omental patch by Dr Obrien 11/29 Perforating gastric/duodenal ulcer with pneumoperitoneum s/p OR: -Patient now 7 days postop, upper GI series showed no perforation -Patient started on clears by surgery, is tolerating -Advance diet per surgery -DC TPN -Continue PPI IV -DC Zosyn as patient received an adequate course - Perioperative care per surgery with Dr. Obrien Sepsis secondary to above-resolved -Leukocytosis has resolved, DC Zosyn JANETH - resolved Diarrhea: -Cultures and C. difficile are negative DC planning: Advance diet, anticipate DC in the next couple days Result Diagram: 12/06/18 0452 12/07/18 0504 Results 24hrs Laboratory Tests Test 12/07/18 00:40 12/07/18 05:04 12/07/18 06:01 12/07/18 12:35 Bedside Glucose 105 115 138 Sodium Level 140 Potassium Level 4.0 Chloride Level 107 Carbon Dioxide Level 27 Anion Gap 6 Blood Urea Nitrogen 13 Creatinine 1.00 Est Glomerular Filtrat > 60 Rate mL/min Glucose Level 125 Calcium Level 8.3 L Phosphorus Level 3.5 Magnesium Level 2.3 Subjective 24 Hr Interval Summary Constitutional: no complaints Exam/Review of Systems Exam Vitals Vital Signs Date Temp Pulse Resp B/P (MAP) Pulse Ox O2 O2 Flow FiO2 Time Delivery Rate 12/07/18 97.9 94 18 109/59 96 08:20 (76) 12/07/18 Room Air 02:02 Intake and Output 12/06/18 12/06/18 12/07/18 1515:00 23:00 07:00 IntakeIntake Total 600 ml 1080 ml 1280 ml OutputOutput Total 1100 ml 860 ml 830 ml BalanceBalance -500 ml 220 ml 450 ml Constitutional: alert, oriented Respiratory: clear to auscultation Cardiovascular: regular rate and rhythm Gastrointestinal: soft; No distended Musculoskeletal: nl extremities to inspection Results Results 24hrs Laboratory Tests Test 12/07/18 00:40 12/07/18 05:04 12/07/18 06:01 12/07/18 12:35 Bedside Glucose 105 115 138 Sodium Level 140 Potassium Level 4.0 Chloride Level 107 Carbon Dioxide Level 27 Anion Gap 6 Blood Urea Nitrogen 13 Creatinine 1.00 Est Glomerular Filtrat > 60 Rate mL/min Glucose Level 125 Calcium Level 8.3 L Phosphorus Level 3.5 Magnesium Level 2.3 Medications Medication Current Medications Hydromorphone HCl (Dilaudid) 0.5 mg Q4H PRN IV .SEVERE PAIN 7-10 Last administered on 11/29/18 15:53; Admin Dose 0.5 MG; Start 11/27/18 at 13:00 Acetaminophen (Tylenol Liquid) 650 mg Q4H PRN PO MILD PAIN(1-3)OR ELEVATED TEMP Last administered on 11/29/18 09:04; Admin Dose 650 MG; Start 11/29/18 at 09:00 Piperacillin Sod/ Tazobactam Sod 100 ml @ 200 mls/hr Q6 IVPB Last administered on 12/07/18 12:58; Admin Dose 200 MLS/HR; Start 11/29/18 at 15:30 Hydromorphone HCl (Dilaudid) 1 mg Q2H PRN IV SEVERE PAIN LEVEL 7-10 Last administered on 11/29/18 18:40; Admin Dose 1 MG; Start 11/29/18 at 18:30 Pantoprazole (Protonix Iv) 40 mg BID IV Last administered on 12/07/18 09:43; Admin Dose 40 MG; Start 11/30/18 at 21:00 Total Parenteral Nutrition 1,000 ml @ 100 mls/hr Q10H IV Last administered on 12/07/18 11:04; Admin Dose 100 MLS/HR; Start 12/04/18 at 18:00 IV Flush (NS 10 ml) 10 ml PRN PRN IV IV PROTOCOL Last administered on 12/06/18 21:58; Admin Dose 10 ML; Start 12/04/18 at 13:00 Diagnostic Test (Pha) (Accu-Chek) 1 ea Q6 XX Last administered on 12/07/18at 12: 47; Admin Dose 1 EA; Start 12/06/18 at 12:00 LISETTE KHANNA December 07, 2018 14:39
[2018-12-07 15:10] VITALS: BP 114/66; PULSE 83; RESP 18
--- NOTE | 2018-12-07 18:30 | PN ---
DATE: 12/07/2018 SUBJECTIVE: Feels much better. No pain. Has tolerating clear liquid. Has had bowel movement, but still diarrhea, less watery and slightly formed. No nausea, no vomiting. OBJECTIVE: GENERAL: Awake, alert, oriented. VITAL SIGNS: Temperature maximum 98.3 today, heart rate 90, respirations 20, blood pressure 129/83, saturation 97% on room air. HEART: Regular. LUNGS: Clear. ABDOMEN: Soft. EXTREMITIES: Legs have no calf tenderness. INPUT AND OUTPUT: Faisal-Basilio is draining serous fluid. It has drained 190 mL in past 24 hours. LABORATORY DATA: No labs today, but yesterday the WBC is normal at 10,500 and the only problem is th at platelet has been gradually increasing until yesterday it was 632, which is quite high while on , it was 476. Electrolytes are normal. ASSESSMENT AND PLAN: The patient with colonic perforation of the duodenum, which was diagnosed last week. The patient underwent laparotomy, closure of the perforation and Merritt patch. Postop gradual ly, he is much better and now is quite stable. Yesterday, the patient had upper GI with , whic h did not show evidence of any leakage. Therefore, we will start him on clear liquid. Considering t he pathology of the problem, we are going to go ahead slowly and we will continue on clear liquid tod ay. Tomorrow, Tuesday and probably on Tuesday, we will continue on full liquid diet. If no problem on Tuesday, we will give soft diet and hopefully, we can discharge him on Tuesday. Dictated By: BETH CASTANON MD PS/NTS Conf#: [id number] DID#: [id number] CC: LISETTE KHANNA MD; ANTONIO STEIN MD;*EndCC*
[2018-12-07 19:35] VITALS: BP 110/57; PULSE 94; RESP 18
[2018-12-08 01:54] VITALS: BP 113/65; PULSE 95; RESP 18
[2018-12-08 08:02] VITALS: BP 122/76; PULSE 92; RESP 18
[2018-12-08] MEDS: PANTOPRAZOLE 40 MG INJ IV SCH ×2 (09:47→21:56)
--- NOTE | 2018-12-08 14:10 | PN ---
Date/Time of Note Date/Time of Note DATE: 12/08/18 TIME: 14:09 Assessment/Plan VTE Prophylaxis Risk score (from Ns)>0 risk: 3 SCD applied (from Ns): Yes Pharmacological prophylaxis: NA/contraindicated Pharm contraindication: low risk/ambulating, bleeding Lines/Catheters Urinary Cath still in place: No Assessment/Plan Hospital Course 43 yo male with known PUD/H Pylori infection in the past, iron deficiency anemia, PSA presents with RUQ pain x 2 months with weight loss with imaging at outside hospital showing duodenal ulcer, then with perforation and pneumoperitoneum. S/p ex lap with omental patch by Dr Obrien 11/29 Perforating gastric/duodenal ulcer with pneumoperitoneum s/p OR: -Patient now 7 days postop, upper GI series showed no perforation -Patient started on clears by surgery, is tolerating -Advance diet per surgery -DC TPN -Continue PPI IV -DC Zosyn as patient received an adequate course - Perioperative care per surgery with Dr. Obrien Sepsis secondary to above-resolved -Leukocytosis has resolved, DC Zosyn JANETH - resolved Diarrhea: -Cultures and C. difficile are negative DC planning: Advance diet slowly per surgery, anticipate DC this Tuesday Result Diagram: 12/06/18 0452 12/08/18 0420 Results 24hrs Laboratory Tests Test 12/07/18 17:56 12/08/18 04:20 Bedside Glucose 102 Sodium Level 140 Potassium Level 4.0 Chloride Level 107 Carbon Dioxide Level 25 Anion Gap 8 Blood Urea Nitrogen 10 Creatinine 0.89 Est Glomerular Filtrat Rate mL/min > 60 Glucose Level 83 # Calcium Level 8.5 Phosphorus Level 3.4 Magnesium Level 2.2 Subjective 24 Hr Interval Summary Constitutional: no complaints Exam/Review of Systems Exam Vitals Vital Signs Date Temp Pulse Resp B/P (MAP) Pulse Ox O2 O2 Flow FiO2 Time Delivery Rate 12/08/18 98.5 92 18 122/76 98 Room Air 08:02 (91) Intake and Output 12/07/18 12/07/18 12/08/18 1515:00 23:00 07:00 IntakeIntake Total 700 ml 1760 ml 240 ml OutputOutput Total 640 ml 540 ml 1430 ml BalanceBalance 60 ml 1220 ml -1190 ml Constitutional: alert, oriented Psych: no complaints, nl mood/affect Head: normocephalic, atraumatic Eyes: nl conjunctiva, EOMI, nl lids, nl sclera, PERRL ENMT: nl external ears & nose, nl lips & teeth, nl nasal mucosa & septum Neck: supple, non-tender Respiratory: clear to auscultation Cardiovascular: regular rate and rhythm Gastrointestinal: soft; No distended Musculoskeletal: nl extremities to inspection Extremities: normal pulses Neurological: PALLET STONE POSITIONER II-XII intact, nl mental status, nl speech, nl strength Skin: nl turgor; No rash or lesions Lymph: nl lymph nodes Results Results 24hrs Laboratory Tests Test 12/07/18 17:56 12/08/18 04:20 Bedside Glucose 102 Sodium Level 140 Potassium Level 4.0 Chloride Level 107 Carbon Dioxide Level 25 Anion Gap 8 Blood Urea Nitrogen 10 Creatinine 0.89 Est Glomerular Filtrat Rate mL/min > 60 Glucose Level 83 # Calcium Level 8.5 Phosphorus Level 3.4 Magnesium Level 2.2 Medications Medication Current Medications Hydromorphone HCl (Dilaudid) 0.5 mg Q4H PRN IV .SEVERE PAIN 7-10 Last administered on 11/29/18 15:53; Admin Dose 0.5 MG; Start 11/27/18 at 13:00 Acetaminophen (Tylenol Liquid) 650 mg Q4H PRN PO MILD PAIN(1-3)OR ELEVATED TEMP Last administered on 11/29/18 09:04; Admin Dose 650 MG; Start 11/29/18 at 09:00 Hydromorphone HCl (Dilaudid) 1 mg Q2H PRN IV SEVERE PAIN LEVEL 7-10 Last administered on 11/29/18 18:40; Admin Dose 1 MG; Start 11/29/18 at 18:30 Pantoprazole (Protonix Iv) 40 mg BID IV Last administered on 12/08/18 09:47; Admin Dose 40 MG; Start 11/30/18 at 21:00 IV Flush (NS 10 ml) 10 ml PRN PRN IV IV PROTOCOL Last administered on 12/07/18 21:27; Admin Dose 10 ML; Start 12/04/18 at 13:00 LISETTE KHANNA December 08, 2018 14:10
[2018-12-08 15:09] VITALS: BP 119/80; PULSE 91; RESP 18
[2018-12-08 20:33] VITALS: BP 117/78; PULSE 91; RESP 18
[2018-12-09 02:37] VITALS: BP 116/70; PULSE 98; RESP 18
[2018-12-09 07:34] VITALS: BP 132/75; PULSE 99; RESP 18
[2018-12-09] MEDS: PANTOPRAZOLE 40 MG INJ IV SCH ×2 (09:44→21:04)
[2018-12-09 14:02] VITALS: BP 119/73; PULSE 104; RESP 18
--- NOTE | 2018-12-09 17:17 | PN ---
Date/Time of Note Date/Time of Note DATE: 12/09/18 TIME: 17:16 Assessment/Plan VTE Prophylaxis Risk score (from Nsg)>0 risk: 4 SCD applied (from Ns): Yes Pharmacological prophylaxis: NA/contraindicated Pharm contraindication: low risk/ambulating Lines/Catheters IV Catheter Type (from Nrsg): Peripheral IV Urinary Cath still in place: No Assessment/Plan Hospital Course 43 yo male with known PUD/H Pylori infection in the past, iron deficiency anemia, PSA presents with RUQ pain x 2 months with weight loss with imaging at outside hospital showing duodenal ulcer, then with perforation and pneumoperitoneum. S/p ex lap with omental patch by Dr Obrien 11/29 Perforating gastric/duodenal ulcer with pneumoperitoneum s/p OR: -Patient now 7 days postop, upper GI series showed no perforation -Patient started on clears by surgery, is tolerating -Advance diet per surgery -DC TPN -Continue PPI IV -DC Zosyn as patient received an adequate course - Perioperative care per surgery with Dr. Obrien Sepsis secondary to above-resolved -Leukocytosis has resolved, DC Zosyn JANETH - resolved Diarrhea: -Cultures and C. difficile are negative DC planning: Advance diet slowly per surgery, anticipate DC this Tuesday Result Diagram: 12/06/18 0452 12/08/18 0420 Subjective 24 Hr Interval Summary Constitutional: no complaints Exam/Review of Systems Exam Vitals Vital Signs Date Temp Pulse Resp B/P (MAP) Pulse Ox O2 O2 Flow FiO2 Time Delivery Rate 12/09/18 98.3 104 18 119/73 98 Room Air 14:02 (88) Intake and Output 12/08/18 12/08/18 12/09/18 1515:00 23:00 07:00 IntakeIntake Total 902 ml 680 ml OutputOutput Total 880 ml 730 ml 300 ml BalanceBalance 22 ml -50 ml -300 ml Constitutional: alert, oriented Respiratory: clear to auscultation Cardiovascular: regular rate and rhythm Gastrointestinal: soft; No distended Musculoskeletal: nl extremities to inspection Medications Medication Current Medications Hydromorphone HCl (Dilaudid) 0.5 mg Q4H PRN IV .SEVERE PAIN 7-10 Last administered on 11/29/18at 15:53; Admin Dose 0.5 MG; Start 11/27/18 at 13:00 Acetaminophen (Tylenol Liquid) 650 mg Q4H PRN PO MILD PAIN(1-3)OR ELEVATED TEMP Last administered on 11/29/18 09:04; Admin Dose 650 MG; Start 11/29/18 at 09:00 Hydromorphone HCl (Dilaudid) 1 mg Q2H PRN IV SEVERE PAIN LEVEL 7-10 Last administered on 11/29/18 18:40; Admin Dose 1 MG; Start 11/29/18 at 18:30 Pantoprazole (Protonix Iv) 40 mg BID IV Last administered on 12/09/18 09:44; Admin Dose 40 MG; Start 11/30/18 at 21:00 IV Flush (NS 10 ml) 10 ml PRN PRN IV IV PROTOCOL Last administered on 12/07/18 21:27; Admin Dose 10 ML; Start 12/04/18 at 13:00 LISETTE KHANNA December 09, 2018 17:17
[2018-12-09 19:40] VITALS: BP 117/65; PULSE 91; RESP 20
[2018-12-10 02:55] VITALS: BP 120/69; PULSE 111; RESP 20
[2018-12-10 04:00] VITALS: PULSE 88
[2018-12-10 05:00] VITALS: PULSE 92
[2018-12-10 08:35] VITALS: BP 128/75; PULSE 83; RESP 18
[2018-12-10] MEDS ORDERED: CARAS PO (08:56)
[2018-12-10] MEDS ORDERED: PANT40TA3 PO (08:56)
--- NOTE | 2018-12-10 08:57 | PDOCDIS ---
Discharge Instructions CONDITION [id number] Patient Condition: [id number] Good HOME CARE INSTRUCTIONS: [id number] Diet Instructions: [id number] Regular ACTIVITY: [id number] Activity Restrictions: [id number] No Restrictions FOLLOW UP/APPOINTMENTS Follow-up Plan FOLLOW UP WITH YOUR PCP AND DR LEWIS IN 1-2 WEEKS LISETTE KHANNA December 10, 2018 08:57
[2018-12-10] MEDS: PANTOPRAZOLE 40 MG INJ IV SCH (10:24)
--- NOTE | 2018-12-10 11:57 | DS ---
Date/Time of Note Date/Time of Note DATE: 12/10/18 TIME: 11:35 Discharge Summary Admission/Discharge Info Admit Date/Time Nov 27, 2018 at 10:16 Discharge Date/Time December 10, 2018 Discharge Diagnosis Perforating gastric/duodenal ulcer with pneumoperitoneum s/p OR: -Patient now over 7 days postop, upper GI series showed no perforation -Patient now tolerating a soft diet -Status post TPN -Status post PPI IV, DC with Protonix oral and Carafate -Status post course of Zosyn Sepsis secondary to above-resolved -Leukocytosis has resolved, status post Zosyn JANETH - resolved Diarrhea: -Cultures and C. difficile are negative Polysubstance abuse with cocaine, amphetamine and alcohol abuse -Patient reports that he will quit drugs and alcohol Patient Condition: Good Hospital Course Patient is a 43 yo male with known PUD/H Pylori infection in the past, iron defi ciency anemia, history of substance abuse, PSA presents with RUQ pain x 2 months with weight loss with imaging at outside hospital showing duodenal ulcer, patient had a very large perforation and pneumoperitoneum. Patient is s/p ex lap with omental patch by Dr Obrien 11/29, patient was kept n.p.o. for 7 days, follow-up upper GI series showed no perforation and patient was started on clears by surgery. Patient diet was advanced slowly to a soft diet patient was stable for DC per surgery. Patient did receive double dose Protonix and will be discharged with Protonix and Carafate. The day of discharge patient's vitals, labs and exam are stable. Patient states that he no longer is drinking alcohol and will continue to abstain from alcohol abuse. Home Meds Active Scripts Sucralfate* (Carafate*) 1 Gm/10 Ml Susp, 1 GM PO TID for 30 Days, #90 EA Prov:LISETTE KHANNA 12/10/18 Pantoprazole* (Protonix*) 40 Mg Tablet., 40 MG PO BID for 30 Days, #60 TAB 1 Refill Prov:LISETTE KHANNA 12/10/18 Follow-up Plan FOLLOW UP WITH YOUR PCP AND DR OBRIEN IN 1-2 WEEKS Primary Care Provider Not On Staff Doctor Time spent on discharge: > 30 minutes LISETTE KHANAN December 10, 2018 11:55
--- NOTE | 2018-12-10 13:02 | PN ---
DATE: 12/10/2018 Postop day #11 status post laparotomy, peritoneal washout and closure of the perforated duodenal pylo elvira ulcer and placement of Merritt patch. SUBJECTIVE: Feels good. Wants to go home. Has tolerated a soft diet, bowel movement okay. No feve r, no nausea, no vomiting, no abdominal pain. OBJECTIVE: GENERAL: Awake, alert, oriented. VITAL SIGNS: Temperature maximum today 98.7, heart rate 88, respirations 20, blood pressure 120/69, saturation 99% on room air. HEART: Regular. LUNGS: Clear. ABDOMEN: Soft. Wounds are clean. Faisal-Basilio drain is in place draining serous fluid. ASSESSMENT AND PLAN: I tried to remove the SIDDHARTHA drain, but it does not heal and does not come out. Th e patient has a lot of pain. I assume when they put the drain to make sure that it doesn't get dislo dged, they have sutured with and that is why now the suture is still intact, so it doesn't let it go, so I will leave it like this so that Dr. Obrien, the surgeon, who put in the drain, he knows wh ere it is attached and he can remove it in the office. Instruction for care of the SIDDHARTHA was given to t he patient. LABORATORY DATA: Hematology was done stat. WBC 7800 with 60% segmented. Shows normal differential, hemoglobin is 7.8, hematocrit 25.2. This has been like this in the past 8 days and RBC is 22.85 per liter. We know that the patient has had this perforation almost for about 2 months. Therefore, thi s is anemia of chronic disease. The patient was seen by medical service today as well. PLAN: Discharged from surgical point of view and from medical point of view. Prescription for Desire nix was given to the patient by medical service and also I wrote a prescription for iron pills one b. i.d. with good. The patient to call Dr. Obrien' office on Tuesday and make an appointment for followup . If any problem, he goes and see Dr. Obrien next Tuesday. Otherwise, the other Tuesday he will go s ee Dr. Obrien. Dictated By: BETH OSUNA/HAYES Conf#: [id number] DID#: [id number] CC: LISETTE KHANNA MD; ANTONIO STEIN MD; NASEEM GILBERT MD;*End*
== END 2018-12-10 12:15 | disposition home or self-care (01) | DRG 853 ==
LOC: E/R 09:14 → 2NE 10:16 → SUATTDRO 10:18 → ICU 11-29 10:55 → MS1 12-05 17:31
PROVIDERS: ADMIT Internal Medicine; ATTEND Internal Medicine
PROC: 0DB68ZX Excision of Stomach, Via Natural or Artificial Opening Endoscopic, Diagnostic (ICD-10-PCS; 2018-11-28)
PROC: 0DJD8ZZ Inspection of Lower Intestinal Tract, Via Natural or Artificial Opening Endoscopic (ICD-10-PCS; 2018-11-28)
PROC: 0DB58ZX Excision of Esophagus, Via Natural or Artificial Opening Endoscopic, Diagnostic (ICD-10-PCS; 2018-11-28 15:00)
PROC: 0DU907Z Supplement Duodenum with Autologous Tissue Substitute, Open Approach (ICD-10-PCS; principal; 2018-11-29 13:00)
PROC: 02HV33Z Insertion of Infusion Device into Superior Vena Cava, Percutaneous Approach (ICD-10-PCS; 2018-12-04)
DX: A41.9 Sepsis, unspecified organism (principal); K26.5 Chronic or unspecified duodenal ulcer with perforation; E43 Unspecified severe protein-calorie malnutrition; K65.9 Peritonitis, unspecified; K25.1 Acute gastric ulcer with perforation; K25.5 Chronic or unspecified gastric ulcer with perforation; K22.10 Ulcer of esophagus without bleeding; N17.9 Acute kidney failure, unspecified; D50.9 Iron deficiency anemia, unspecified; F15.10 Other stimulant abuse, uncomplicated; F14.90 Cocaine use, unspecified, uncomplicated; F10.10 Alcohol abuse, uncomplicated; F17.200 Nicotine dependence, unspecified, uncomplicated; I12.9 Hypertensive chronic kidney disease with stage 1 through stage 4 chronic kidney disease, or unspecified chronic kidney disease; N18.9 Chronic kidney disease, unspecified; K59.00 Constipation, unspecified; R19.7 Diarrhea, unspecified; K64.8 Other hemorrhoids; Z68.23 Body mass index [BMI] 23.0-23.9, adult; Z87.19 Personal history of other diseases of the digestive system
CPT/HCPCS: 36569; 71045; 74177; 74240; 76775; 76937; 80048; 80053; 80202; 81001; 81003; 82962; 83036; 83690; 83735; 84100; 84134; 84155; 84300; 85025; 85610; 85730; 86703; 87045; 87075; 87081; 87086; 88305; 88312; 88313; 97116; 97162; 97530; C9113; J1170; J2250; J2370; J2405; J2543; J2710; J2795; J2997; J3010; J3370; J3480; J7030; J7040; J7042; J7050; Q9967